=== PATIENT | male | born 1980 | race Caucasian/White ===

== ENCOUNTER 2024-08-02 00:03 | Inpatient (IN) | payer MEDICAID, SELFPAY ==
[2024-08-02] VITALS (16 sets, daily range): BP systolic 130–170; BP diastolic 106–125; PULSE 86–111; RESP 15–97; TEMP 36.6–37.1; O2SAT 93–99; BMI 33.9; BMI 34.0
--- NOTE | 2024-08-02 00:06 | EKG_ITS ---
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
--- NOTE | 2024-08-02 00:23 | XR_ITS ---
Examination: PA chest single view TECHNIQUE: Upright PA chest single view Exam date and time: August 02, 2024 0108 hours Comparison September 05, 2023 INDICATIONS: Chest pain shortness of breath today. FINDINGS: Mild to moderate CHF Mild to moderate enlargement cardiac contour. Prominent vascular congestion with perihilar edema Cardiac leads satisfactory position IMPRESSION: Mild to moderate CHF
--- NOTE | 2024-08-02 00:24 | PD.EDRME ---
Rapid Medical Screening Exam RME Arrival date/time: 08/02/24 00:03 44M with history of CHF presents to ED with SOB (worse when lying down) that started after patient took some ibuprofen for a toothache. Patient has been taking his meds. Chief Complaint: General Adult/Misc Complain Vital signs: Vital Signs Temperature 98.1 F 08/02/24 00:11 Pulse Rate 105 H 08/02/24 00:11 Respiratory Rate 18 08/02/24 00:11 Blood Pressure 144/106 H 08/02/24 00:11 Pulse Oximetry (%) 96 08/02/24 00:11 Oxygen Delivery Method Room Air 08/02/24 00:11
[2024-08-02 01:09] LABS: Collection Type, Urine Clean Catch
[2024-08-02 01:11] LABS: Basophils # (Auto) 0.1 Thou/mm3 (0.0-0.2); Basophils % (Auto) 1 % (0-2.5); Eosinophils # (Auto) 0.2 Thou/mm3 (0.0-0.5); Eosinophils % (Auto) 1 % (0-10); Hematocrit 42.4 % (41.0-53.0); Hemoglobin 14.6 g/dL (13.5-16.0); Immature Granulocytes % (Auto) 1 % (0-0); Immature Granulocytes Auto 0.06 Thou/mm3 (0.00-0.00); Lymphocytes # (Auto) 1.6 Thou/mm3 (1.0-4.8); Lymphocytes % (Auto) 13 % (10-50); Mean Corpuscular HGB Conc 34.4 g/dl (31.0-37.0); Mean Corpuscular Volume 84 fL (80-100); Monocytes # (Auto) 0.9 Thou/mm3 (0.0-0.8); Monocytes % (Auto) 8 % (0-12); Neutrophils % (Auto) 76 % (37-80); Nucleated Red Blood Cell % 0 /100 WBC (0); Platelet Count 213 Thou/mm3 (140-440); RDW Standard Deviation 40.8 fL (35.1-43.9); Red Blood Count 5.04 Miln/mm3 (4.50-5.90); White Blood Count 11.8 Thou/mm3 (3.8-10.6)
[2024-08-02 01:37] LABS: Bilirubin,Urine Negative (Negative); Blood,Urine Negative (Negative); Clarity,Urine Clear (Clear/Hazy); Color,Urine Yellow (Lt Yel-Yel); Glucose, Urine Negative (Negative); Hyaline Casts,Urine < 1 /hpf (0-1); Ketones,Urine Negative (Negative); Leukocyte Esterase,Urine Negative (Negative); Nitrite,Urine Negative (Negative); Protein,Urine 2+ (Neg - Trace); RBC,Urine 3 /hpf (0-3); Specific Gravity,Urine 1.034 (1.001-1.035); Squamous Epithelial Cell,Urine < 1 /hpf (0-5); WBC,Urine 2 /hpf (0-5)
[2024-08-02 01:47] LABS: Alanine Aminotransferase 26 U/L (10-49); Albumin/Globulin Ratio 1.6 (1.2-2.2); Alkaline Phosphatase 111 U/L (46-116); Anion Gap 9 (7-16); Aspartate Amino Transferase 24 U/L (0-34); B-Type Natriuretic Peptide 1117 pg/mL (0-100); BUN/Creatinine Ratio 13 Ratio (12-20); Bilirubin,Total 1.1 mg/dL (0.3-1.2); Blood Urea Nitrogen 19 mg/dL (9-23); Calcium 9.3 mg/dL (8.3-10.6); Calcium (Corrected) 9.3 mg/dL (8.5-10.1); Carbon Dioxide 26.3 mMol/L (20.0-31.0); Chloride 107 mMol/L (98-107); Creatinine (Component) 1.5 mg/dL (0.6-1.3); Estimated Creatinine Clearance 82.6 mL/min (>60); Globulin 2.5 gm/dL (2.3-3.5); Glucose 164 mg/dL (74-106); Magnesium 1.6 mg/dL (1.6-2.6); Osmolality,Calculated 289 (275-295); Potassium 3.8 mMol/L (3.4-5.1); Sodium 142 mMol/L (136-145); Total Protein 6.5 gm/dL (5.7-8.2); eGFR 59 See Note
[2024-08-02 01:50] LABS: Troponin I 0.126 ng/mL (0.0-0.045)
--- NOTE | 2024-08-02 02:50 | PC.NURSE ---
Initial contact with pt. Brought to RM #10 via w/c. Pt c/o SOB, stated that he took Ibuprofen, and thinks that it caused and interaction with his usual meds, and caused him to have resp distress.
--- NOTE | 2024-08-02 03:54 | PC.NURSE ---
Dr. Barlow in room seeing pt.
--- NOTE | 2024-08-02 04:00 | EDNOTE_ITS ---
ED General RME/HPI General Chief complaint: General Adult/Misc Complain Stated complaint: GENERAL WEAKNESS AND SOB PT HAS CHF Arrival date/time: 08/02/24 00:03 RME / HPI RME / HPI narrative: 08/02/24 00:03 44M with history of CHF presents to ED with SOB (worse when lying down) that started after patient took some ibuprofen for a toothache. Patient has been taking his meds. -------- Dr. Barlow?s Main ED Evaluation: 44yo male with a history of CHF, HTN, methamphetamine abuse (last being 2 days ago) presents to the ED for a chief complaint of shortness of breath. Patient states he started taking ibuprofen for a toothache 3 days ago, reporting the next day, he started feeling short of breath. He reports an associated cough. He states he was feeling sluggish and unwell, so he came in for evaluation. He denies any chest pain, N/V or any other associated symptoms. No known allergies. Related Data Home Medications ?Medication ?Instructions ?Recorded ?Confirmed aspirin 81 mg tablet,delayed 81 mg PO QDAY 09/08/21 release carvedilol 12.5 mg tablet 1 tab PO BID 09/08/21 clopidogrel 75 mg tablet 1 tab PO QDAY 09/08/2109/19 furosemide 20 mg tablet 20 mg PO QDAY 09/08/2109/19 losartan 100 mg tablet 1 tab PO QDAY 09/08/2109/19 spironolactone 25 mg tablet 1 tab PO QDAY 09/08/21 atorvastatin 80 mg tablet 1 tab PO HS 09/19/21 2 Allergies Allergy/AdvReac Type Severity Reaction Status Date / Time No Known Allergies Allergy Verified 05/18/22 11:36 Review of Systems Review of Systems Systems Reviewed: All systems reviewed, normal except as documented Past Medical History Past Medical History NEUROLOGIC: Negative Neurological Disorders, Cerebrovascular Accident, Transient Ischemic Attacks (TIA), Dementia, Alzheimer's Disease, Parkinson's Disease, Brain Tumor, Meningitis, Seizures, Epilepsy, Multiple Sclerosis, Cerebral Palsy, Amyotrophic Lateral Sclerosis (ALS/Antonietta Gehrig's), Guillain-[place] Syndrome, Spina Bifida, Paralysis, Peripheral Neuropathy, Blanc's Palsy, Subdural Hematoma, Migraine, Head Trauma, Spinal Cord Injury or Traumatic Brain Injury CARDIAC: Positive Cardiac Disorders, Congestive Heart Failure, Edema and Hypertension; Negative Myocardial Infarction, Cardiac Arrhythmia, Atrial Fibrillation, Angina, Heart Murmur, Coronary Artery Disease, Atherosclerotic Heart Disease, Peripheral Vascular Disease, Hypercholesterolemia, Aneurysm, Congenital Heart Disease, Valvular Heart Disease, Rheumatic Fever, Cardiomyopathy, Pericarditis, Cellulitis, Deep Vein Thrombosis, Hypotension or Varicose Veins RESPIRATORY: Positive Chronic Obstructive Pulmonary Disease (COPD) and Pneumonia; Negative Bronchitis, Emphysema, Cystic Fibrosis, Pulmonary Embolism or Pulmonary Edema GASTROINTESTINAL: Positive Obesity; Negative Gastrointestinal Disorders, Hepatitis, Cirrhosis, Pancreatitis, Celiac Disease, Gall Bladder Disease, Gastrointestinal Bleed, Esophageal Varices, Stewart's Esophagus, Colitis, Ulcerative Colitis, Diverticulitis, Diverticulosis, Ulcer, Colorectal Cancer, Irritable Bowel, Crohn's Disease, Obstructive Bowel, Hiatal Hernia, Hemorrhoids or Gastroesophageal Reflux Disease GENITOURINARY: Positive Genitourinary Disorders and Kidney Stones; Negative Renal Disease, Polycystic Kidney Disease, Neurogenic Bladder, Prostate Cancer or Benign Prostatic Hyperplasia REPRODUCTIVE: Negative Breast Cancer, Genital Herpes, Gonorrhea, Syphilis or Testicular Cancer MUSCULOSKELETAL: Positive Musculoskeletal Disorders; Negative Muscular Dystrophy, Myasthenia Gravis, Marfan's Syndrome, Bone Cancer, Arthritis, Rheumatoid Arthritis, Osteoporosis, Degenerative Disk Disease, Gout, Scoliosis, Carpal Tunnel Syndrome, Fibromyalgia, Fractures, Degenerative Joint Disease, Osteomyelitis or Poliovirus ENT: Negative Cataracts, Glaucoma, Blind, Retinal Detachment, Macular Degeneration, Ear Infection, Deafness, Head Trauma or Eye Prosthesis ENDOCRINE: Negative Endocrine Disorders, Diabetes Mellitus Type 1, Diabetes Mellitus Type 2, Hypoglycemia, Hyperthyroidism, Hypothyroidism, Parathyroid Disease, Pituitary Disease, Systemic Lupus Erythematosus, Syndrome of Inappropriate Antidiuretic Hormone (SIADH) or Graves' Disease HEMATOLOGIC: Negative Blood Disorders, Anemia, Leukemia, Hemophilia, Thalassemia, Sickle Cell Disease or Clotting Problems PSYCHO/SOCIAL: Negative Psychiatric Problems, Schizophrenia, Recreational Drug Use, Bipolar Disorder, Depression, Anxiety, Behavior Problems, Self-Mutilation, Attention Deficit Disorder, Attention Deficit Hyperactivity Disorder, Depression, Post Traumatic Stress Disorder or Eating Disorder OTHER HISTORY: Positive Hospitalization; Negative Autoimmune Disease, Down Syndrome, Autism, Developmental Delay, Falls, Blood Transfusions, Blood Transfusion Reaction, Anesthesia Reactions, Organ Transplant, Chemotherapy, Radiation Therapy, Hyperbaric Therapy, MRSA, VRSA, Vancomycin-Resistant Enterococci, Human Immunodeficiency Virus (HIV), Chicken Pox, Measles, Mumps, Rubella (Uz[place] Measles), Pertussis, Clostridium Difficile, Cancer, Breast Cancer, Colorectal Cancer, Lung Cancer, Prostate Cancer or Testicular Cancer Family History FAMILY HISTORY: Positive Family Cardiac Disorders; Negative Family Psychiatric Problems, Family Respiratory Disorders, Family Gastrointestinal Problems, Family Cancer, Family Surgery or Family Anesthesia Reaction Surgical History SURGICAL: Negative Cardiac Surgery, Open Heart Surgery, Coronary Artery Bypass Graft, Valve Replacement, Vascular Surgery, Coronary Stent, Cardiac Catheterization, Pacemaker, Angiogram, Auto Implanted Cardiovert Defib, Carotid Endarterectomy, Endocrine Surgery, Thyroidectomy, Ear Surgery, Tympanostomy Tube, Eye Surgery, Nose Surgery, Oral Surgery, Tonsillectomy, Adenoidectomy, Cochlear Implant, Corneal Transplant, Throat Surgery, Abdominal Surgery, Tracheostomy, Gastric Bypass Surgery, Gastrostomy, Bowel Surgery, Nephrectomy, Transurethral Resection, Joint Replacement, Amputation, Open Reduction Internal Fixation, Arthroscopy, Neurologic Surgery, Brain Shunt, Vasectomy or Organ Transplant Social History SMOKING STATUS: Never smoker SECOND HAND EXPOSURE: No SUBSTANCE USE: methamphetamine ED Exam Narrative Physical exam: GENERAL APPEARANCE: alert and oriented x 4, well-developed, well-nourished, in [id number] respiratory distress VITALS: All vitals were reviewed and the pulse ox is 95% on room air, which is normal according to my interpretation. HEENT: Normocephalic, atraumatic; pupils equal, round, reactive to light; EOMI; mucous membranes pink, moist; oropharynx clear NECK: Supple LUNGS: no wheezes, diffuse rales and rhonchi HEART: Regular rate, regular rhythm; normal S1, S2; no murmurs ABDOMEN: non distended; normal BS; soft, no tenderness, no guarding, no rebound; no masses, no organomegaly, no hernia BACK: no CVA tenderness EXTREMITIES: atraumatic; minimal pedal edema bilaterally NEUROLOGIC: awake; alert and oriented x4; cranial nerves II-XII grossly intact; no focal sensory or motor deficits PSYCHIATRIC: appropriate mood and affect SKIN: warm, dry, normal color; no rashes Course Course Course Narrative: CXR is ordered for determining the etiology of shortness of breath. 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 Care 08/02/24 03:33 Active Continuous Pulse Oximetry ONCE Care 08/02/24 03:33 Active EKG (ED ONLY) *Do not use* NOW Care 08/02/24 00:06 Completed Insert IV STAT Care 08/02/24 03:33 Active Notify provider NEEDED Care 08/02/24 04:50 Active Obtain weight daily Care 08/02/24 04:51 Active Strict Intake and Output Routine Care 08/02/24 04:50 Ordered Consult to Cardiology Routine Cons 08/02/24 04:55 Ordered Referral Respiratory Therapy Stat Cons 08/02/24 04:09 Active Diet Cardiac Diet 08/02/24 Breakfast Active CA echo doppler complete Stat Exams 08/02/24 04:50 Ordered EKG (ED Only) Stat Exams 08/02/24 00:06 Draft XR chest 1V portable Stat Exams 08/02/24 00:23 Taken B-Type Natriuretic Peptide Stat Lab 08/02/24 00:56 Completed CBC AM DRAW Lab 08/02/24 05:00 Ordered CBC AM DRAW Lab 08/03/24 05:00 Ordered CBC AM DRAW Lab 08/04/24 05:00 Ordered CBC Stat Lab 08/02/24 00:56 Completed Comprehensive Metabolic Panel AM DRAW Lab 08/02/24 05:00 Ordered Comprehensive Metabolic Panel AM DRAW Lab 08/03/24 05:00 Ordered Comprehensive Metabolic Panel AM DRAW Lab 08/04/24 05:00 Ordered Comprehensive Metabolic Panel Stat Lab 08/02/24 00:56 Completed Drug Screen,Urine Stat Lab 08/02/24 01:00 Completed Lipid Panel AM DRAW Lab 08/02/24 05:00 Ordered Magnesium AM DRAW Lab 08/02/24 05:00 Ordered Magnesium AM DRAW Lab 08/03/24 05:00 Ordered Magnesium AM DRAW Lab 08/04/24 05:00 Ordered Magnesium Stat Lab 08/02/24 00:56 Completed Phosphorous AM DRAW Lab 08/03/24 05:00 Ordered Phosphorous AM DRAW Lab 08/04/24 05:00 Ordered Phosphorous AM DRAW Lab 08/05/24 05:00 Ordered Thyroid Stimulating Hormone AM DRAW Lab 08/02/24 05:00 Ordered Troponin I Q4H Lab 08/02/24 08:00 Ordered Troponin I Q4H Lab 08/02/24 12:00 Ordered Troponin I Q4H Lab 08/02/24 16:00 Ordered Troponin I Q4H Lab 08/02/24 20:00 Ordered Troponin I Stat Lab 08/02/24 00:56 Completed Troponin I Stat Lab 08/02/24 03:49 Received Urinalysis Stat Lab 08/02/24 01:00 Completed Acetaminophen Tab [Tylenol Tab] Med 08/02/24 04:50 Ordered 650 mg PO Q6H PRN Acetaminophen Tab [Tylenol Tab] Med 08/02/24 04:50 Ordered 650 mg PO Q6H PRN Albuterol/Ipratr Rt Jacqueline [Duoneb Rt Jacqueline] Med 08/02/24 05:00 Ordered 3 ml INH Q6H Aspirin Med 08/02/24 04:08 Discontinued 325 mg PO X1 ONE Furosemide Inj [Lasix Inj] Med 08/02/24 04:02 Discontinued 80 mg IVP X1 ONE Heparin Inj Med 08/02/24 06:00 Ordered 5,000 unit SC Q8HR hydrALAZINE INJ [Apresoline Inj] Med 08/02/24 04:02 Discontinued 10 mg IV X1 ONE oxyCODONE/APAP 5/325 [Percocet 5/325] Med 08/02/24 04:20 Discontinued 1 tab PO X1 ONE Code Status Routine Oth 08/02/24 04:50 Ordered BiPAP / CPAP NOW RT 08/02/24 04:35 Active Oxygen Delivery NOW RT 08/02/24 03:33 Active Vital Signs Vital signs: Vital Signs Temperature 98.1 F 08/02/24 00:11 Pulse Rate 105 H 08/02/24 00:11 Respiratory Rate 18 08/02/24 00:11 Blood Pressure 144/106 H 08/02/24 00:11 Pulse Oximetry (%) 96 08/02/24 00:11 Oxygen Delivery Method Room Air 08/02/24 00:11 [facility] Patient data External records reviewed:: [facility] previous records (Per chart review, patient was seen here on 09/05/23 for CHF.) Clinical information provided by:: patient Social determinants that could affect healthcare access:: substance use Patient has the following chronic illnesses:: CHF, HTN How is presenting disease/condition affected by chronic disease/condition?: e xacerbated by Evaluation data The following diagnostics were reviewed and interpreted by me:: lab results, radiology exam(s) and EKG tracing(s) Lab and/or radiology exams considered but not ordered:: none Interpretation Summary: WBC count is 11.8, Glucose is 164, BNP is elevated at 1117, Initial troponin is elevated at 0.126, UA is unremarkable, according to my interpretation. CXR shows a dual chamber pacemaker and AICD, cardiomegaly, cephalization, blurring of the left heart border, mild pulmonary edema, according to my interpretation. EKG done at 0016, NSR, rate of 99, normal axis, no ectopy, QTc: 384, QRS: 103, no acute ischemia, according to my interpretation. Medications Medications considered but not ordered:: none Medication administrations:: Medication Administration History Acetaminophen (Acetaminophen 325 Mg Tablet) 650 mg PO Q6H PRN PRN Reason: Fever >101.5 Stop: 09/01/24 04:49 Acetaminophen (Acetaminophen 325 Mg Tablet) 650 mg PO Q6H PRN PRN Reason: PAIN SCALE 1-3 (mild Stop: 09/01/24 04:49 Albuterol/Ipratropium (Albuterol/Ipratropium (Duoneb) Rt Jacqueline 3 Ml Nebu) 3 ml INH Q6H GAEL Stop: 09/01/24 04:59 Heparin Sodium (Porcine) (Heparin Sod Inj 5000 Unit/Ml Vial) 5,000 unit SC Q8HR GAEL Stop: 08/16/24 05:59 Discontinued Medications Aspirin (Aspirin 325 Mg Tablet) 325 mg PO X1 ONE Stop: 08/02/24 04:09 Last Admin: 08/02/24 04:44 Dose: 325 mg Documented By: LB Furosemide (Furosemide Inj 10 Mg/Ml 4ml Vial) 80 mg IVP X1 ONE Stop: 08/02/24 04:03 Hydralazine HCl (Hydralazine Inj 20 Mg/Ml Vial) 10 mg IV X1 ONE Stop: 08/02/24 04:03 Oxycodone/Acetaminophen (Oxycodone/Apap 5/325 Tablet) 1 tab PO X1 ONE Stop: 08/02/24 04:21 see above Consultations Consultation(s) initiated? (list below): Yes Consultation #1 (Physician, Specialty, Details): Discussed case with [Dr. Gomez, attending Dr. Latif] from Hospitalist service regarding admission. Discussed patients ED course, exam findings, labs, and radiology results. The Hospitalist [agrees] to accept the patient for admission. Time: 04:14 Diagnosis Differential Diagnosis ED Complaint MDM: CHF exacerbation, hypertensive crisis, pulmonary edema, STEMI, NSTEMI Most likely diagnosis given after review of the tests above:: see clinical impression below Admission Indicated Admission indicated?: indicated Explain why admission is indicated or not indicated:: Admission criteria met. Admission Request Was there a request for admission?: Yes Admission Attestation Admission request attestation: Discussed case with [] from Hospitalist service regarding admission. Discussed patients ED course, exam findings, labs, and radiology results. The Hospitalist [agrees,declines] to accept the patient for admission. Disposition Plan Disposition Plan: Admit Medical Decision Making MDM Narrative MDM Narrative: Scribe Attestation: 08/02/24 - Tri Mason am scribing for and in the presence of Dr. Barlow. 0409: Patient's blood pressure is 150/114. Hydralazine 10mg and Lasix 80mg ordered. I had RT called to place the patient on BiPaP. Differential Diagnosis Differential Diagnosis: CHF exacerbation, hypertensive crisis, pulmonary edema, STEMI, NSTEMI Lab Data 08/02/24 00:56 08/02/24 00:56 Labs: Lab Results 08/02/24 08/02/24 Range/Units 00:56 01:00 WBC 11.8 H (3.8-10.6) Thou/mm3 RBC 5.04 (4.50-5.90) Miln/mm3 Hgb 14.6 (13.5-16.0) g/dL Hct 42.4 (41.0-53.0) % MCV 84 (80-100) fL MCH 29.0 (25.0-35.0) pg MCHC 34.4 (31.0-37.0) g/dl RDW Std Deviation 40.8 (35.1-43.9) fL Plt Count 213 (140-440) Thou/mm3 Neut % (Auto) 76 (37-80) % Lymph % (Auto) 13 (10-50) % [place] % (Auto) 8 (0-12) % Eos % (Auto) 1 (0-10) % Baso % (Auto) 1 (0-2.5) % Neut # (Auto) 9.0 H (1.8-7.7) Thou/mm3 Lymph # (Auto) 1.6 (1.0-4.8) Thou/mm3 [place] # (Auto) 0.9 H (0.0-0.8) Thou/mm3 Eos # (Auto) 0.2 (0.0-0.5) Thou/mm3 Baso # (Auto) 0.1 (0.0-0.2) Thou/mm3 Immature Gran # (Auto) 0.06 H (0.00-0.00) Thou/mm3 Absolute Nucleated RBC 0.00 (0.00-0.00) Thou/mm3 Immature Gran % 1 H (0-0) % Nucleated RBC % 0 (0) /100 WBC Sodium 142 (136-145) mMol/L Potassium 3.8 (3.4-5.1) mMol/L Chloride 107 (98-107) mMol/L Carbon Dioxide 26.3 (20.0-31.0) mMol/L Anion Gap 9 (7-16) BUN 19 (9-23) mg/dL Creatinine 1.5 H (0.6-1.3) mg/dL Estim Creat Clear Calc 82.6 (>60) mL/min eGFR 59 L (60 - ) See Note BUN/Creatinine Ratio 13 (12-20) Ratio Glucose 164 H (74-106) mg/dL Calculated Osmolality 289 (275-295) Calcium 9.3 (8.3-10.6) mg/dL Corrected Calcium 9.3 (8.5-10.1) mg/dL Magnesium 1.6 (1.6-2.6) mg/dL Total Bilirubin 1.1 (0.3-1.2) mg/dL AST 24 (0-34) U/L ALT 26 (10-49) U/L Alkaline Phosphatase 111 (46-116) U/L Troponin I 0.126 H* (0.0-0.045) ng/mL B-Natriuretic Peptide 1117 H* (0-100) pg/mL Total Protein 6.5 (5.7-8.2) gm/dL Albumin 4.0 (3.5-5.0) gm/dL Globulin 2.5 (2.3-3.5) gm/dL Albumin/Globulin Ratio 1.6 (1.2-2.2) Ur Collection Type Clean Catch Urine Color Yellow (Lt Yel-Yel) Urine Clarity Clear (Clear/Hazy) Urine pH 6.0 (5.0-7.0) Ur Specific [place] 1.034 (1.001-1.035) Urine Protein 2+ A (Neg - Trace) Urine Glucose (UA) Negative (Negative) Urine Ketones Negative (Negative) Urine Blood Negative (Negative) Urine Nitrite Negative (Negative) Urine Bilirubin Negative (Negative) Urine Urobilinogen (Auto) 2.0 (0.0-1.0) mg/dL Ur Leukocyte Esterase Negative (Negative) Urine RBC 3 (0-3) /hpf Urine WBC 2 (0-5) /hpf Ur Squamous Epith Cells < 1 (0-5) /hpf Urine Bacteria None (None) Hyaline Casts < 1 (0-1) /hpf Urine Opiates Screen Negative (Negative) Urine Fentanyl Screen Negative (Negative) Ur Barbiturates Screen Negative (Negative) U Amphetamin/Meth Scrn Positive A (Negative) U Benzodiazepines Scrn Negative (Negative) U Cocaine Metab Screen Negative (Negative) U Marijuana (THC) Screen Positive A (Negative) Critical Care Time Critical Care Time Critical Care Time: Yes Total Critical Care Time (min.): 60 Attestation: The high probability of sudden, clinically significant deterioration in the patient?s condition required the highest level of my preparedness to intervene urgently. The services I provided to this patient were to treat and/or prevent clinically significant deterioration. Services included the following: chart data review, reviewing nursing notes and/or old charts, documentation time, organizational effectiveness consultant collaboration regarding findings and treatment options, medication orders and management, direct patient care, vital sign assessments and ordering, interpreting and reviewing diagnostic studies and lab tests. Aggregate critical care time includes only time during which I was engaged in work directly related to the patient?s care, as described above, whether at bedside or elsewhere in the Emergency Department. It did not include time spent performing other reported procedures or the services of residents, students, nurses or physician assistants. Discharge Plan Plan Patient Disposition: Admit Acute Care w/in Hospital Disposition Comment: Admitted to Dr. Gomez, attending Dr. Latif Prescriptions/Referrals Prescriptions/Med Rec: No Action losartan 100 mg tablet 1 tab PO QDAY Patient Comments: TAKE 1 TABLET BY MOUTH ONCE DAILY FOR 30 DAYS carvedilol 12.5 mg tablet 1 tab PO BID Patient Comments: TAKE 1 TABLET BY MOUTH TWICE DAILY WITH FOOD clopidogrel 75 mg tablet 1 tab PO QDAY Patient Comments: TAKE 1 TABLET BY MOUTH ONCE DAILY aspirin 81 mg tablet,delayed release (DR/EC) 81 mg PO QDAY Patient Comments: TAKE 1 TABLET BY MOUTH ONCE DAILY spironolactone 25 mg tablet 1 tab PO QDAY Patient Comments: TAKE 1 TABLET BY MOUTH ONCE DAILY furosemide 20 mg tablet 20 mg PO QDAY Patient Comments: TAKE 1 TABLET BY MOUTH ONCE DAILY atorvastatin 80 mg tablet 1 tab PO HS Patient Comments: TAKE 1 TABLET BY MOUTH ONCE DAILY Referrals: Cale Garcia MD [Primary Care Provider] - In 1 week Problem List Clinical Impression: Pulmonary edema, CHF exacerbation, Hypertensive crisis, Non-ST elevation [place] (NSTEMI), Acute renal insufficiency, Gout flare Patient/Caregiver Discharge Instructions Print Language: Citizen Of [place] Stand Alone Forms: [employer] Award Info., Patient Portal Info Letter
[2024-08-02 04:23] LABS: Amphetamine/Methamp Scrn,U Positive (Negative); Barbiturate Screen,Urine Negative (Negative); Benzodiazepines Screen,Urine Negative (Negative); Benzoylecgonine Screen, Ur Negative (Negative); Fentanyl Screen,Urine Negative (Negative); Opiate Screen,Urine Negative (Negative); THC Screen,Urine Positive (Negative)
[2024-08-02] MEDS: Aspirin 325 MG TABLET PO (04:44)
--- NOTE | 2024-08-02 04:50 | ECHO_ITS ---
Transthoracic Echo Report Ht (in): 72 Wt (lb): 250 Exam Location: Portable Status: Emergency [place]yer: VIOLETA Spring^^^^ Indications: Procedure Performed: BP: 170 / 125 HR: 86 Technical Quality: Fair MEASUREMENTS (Male / Female) Normal Values 2D ECHO LV Diastolic Diameter PLAX 7.1 cm 4.2 - 5.9 / 3.9 - 5.3 cm LV Systolic Diameter PLAX 6.7 cm IVS Diastolic Thickness 0.7 cm 0.6 - 1.0 / 0.6 - 0.9 cm LVPW Diastolic Thickness 1.0 cm 0.6 - 1.0 / 0.6 - 0.9 cm LV Relative Wall Thickness 0.2 LVOT Diameter 1.9 cm Aortic Root Diameter 3.7 cm LA Systolic Diameter LX 5.4 cm 3.0 - 4.0 / 2.7 - 3.8 cm LV Ejection Fraction MOD BP 26.1 % >= 55 % LV Cardiac Index MOD BP 4166.0 cm?/min?m? LV Ejection Fraction MOD 4C 18.9 % LV Cardiac Index MOD 4C 3389.3 cm?/min?m? LV Ejection Fraction 4C AL 19.5 % LV Cardiac Index 4C AL 3597.8 cm?/min?m? LV Ejection Fraction MOD 2C 24.8 % LV Cardiac Index MOD 2C 3071.5 cm?/min?m? LV Ejection Fraction 2C AL 27.8 % LV Cardiac Index 2C AL 3427.0 cm?/min?m? LA Volume Index 56.7 cm?/m? 16 - 28 cm?/m? Ascending Aorta Diameter 3.1 cm DOPPLER AV Peak Velocity 110.9 cm/s AV Peak Gradient 4.9 mmHg AV Mean Gradient 3.0 mmHg AV Velocity Time Integral 19.4 cm AI Peak Velocity 193.0 cm/s AI Peak Gradient 14.9 mmHg AI Pressure Half Time 774.5 ms LVOT Peak Velocity 68.0 cm/s LVOT Peak Gradient 1.8 mmHg LVOT Velocity Time Integral 11.6 cm LVOT Cardiac Index 1161.2 cm?/min?m? AV Area Cont Eq vti 1.7 cm? AV Area Cont Eq pk 1.7 cm? MV Area PHT 3.3 cm? MR Peak Velocity 454.0 cm/s MR Peak Gradient 82.4 mmHg Mitral E Point Velocity 88.0 cm/s LV E' Lateral Velocity 7.7 cm/s Mitral E to LV E' Lateral Ratio 11.5 LV E' Septal Velocity 6.3 cm/s Mitral E to LV E' Septal Ratio 14.0 TR Peak Velocity 313.8 cm/s TR Peak Gradient 39.4 mmHg PV Peak Velocity 80.3 cm/s PV Peak Gradient 2.6 mmHg RVOT Peak Velocity 34.0 cm/s FINDINGS Left Ventricle There are findings consistent with dilated cardiomyopathy. The left ventricular cavity size is severely increased. There is grade III diastolic dysfunction of the left ventricle (restrictive filling pattern). The left ventricular ejection fraction is severely decreased, estimated at 15-20%. Right Ventricle The estimated right ventricular systolic pressure is elevated 53 mmHg. the right ventricular systolic function is moderately decreased. The right ventricular size is moderately increased. Left Atrium Moderately increased left atrial volume 56.7 mL/m?. Right Atrium The right atrial cavity size is mildly increased. Atrial Septum The interatrial septum appears normal with no evidence of a shunt. Aorta The aorta is normal by two-dimensional, color flow and Doppler interrogation. Mitral Valve Moderate mitral regurgitation. Mild mitral annular calcification. Aortic Valve Mild aortic valve regurgitation. Tricuspid Valve There is moderate to severe tricuspid valve regurgitation. Pulmonic Valve Trivial pulmonic valve regurgitation. Vessels The pulmonary artery appears normal. The inferior vena cava pulmonary and hepatic veins appear normal. Pericardium The pericardium is normal by two-dimensional imaging. There is no significant pericardial effusion. CONCLUSIONS indication: HFrEF Dilated cardiomyopathy with severe global hypokinesis left ventricle ejection fraction 1015 to 20%. Dystolic Dysfunction III. RV is mildly dilated with reduced systolic function & elevated RVSP 53 mmHg. LA is moderately dilated. RA is mildly dilated. Dilated mitral annulus with mild to moderate 2+ mitral regurgitation secondary to annulus dilation Moderate to severe tricuspid regurgitation with group 2 pulmonary hypertension PA pressure 53 mmHg. Roseline Kang (Electronically Signed) Final Date: 03 August 2024 16:44
[2024-08-02] MEDS: FUROSEMIDE INJ 10 MG/ML 4ML VIAL 80 MG IVP (04:57)
--- NOTE | 2024-08-02 05:03 | PD.RESHP ---
Documentation for date of: 08/02/24 HPI History of Present Illness History of present illness: The patient is a 44-year-old male with significant past medical history of hypertension, diabetes mellitus type 2, currently controlled with diet, HFrEF LVEF 20% on 2020 2/2 dilated cardiomyopathy s/p pacemaker placement in 2022, methamphetamine and marijuana abuse presented to ED on 08/02/2024 with chief complaint of shortness of breath that has been worsening for past 2 days. He reported that he had to take 3 days back, when he took ibuprofen, and methamphetamine and next day he started developing SOB. Initially he thought that his daily dose of Lasix 80 Mg p.o. would help him, but his SOB or send and he decided to come to the ED. He denied any headache, chest pain, abdominal pain, any changes in bowel or bladder habit, leg swelling or fever or chills. He also denied any nausea or vomiting. In the ED, his vitals were significant for blood pressure 144/106, pulse 105, saturating 96% on room air. Labs revealed WBC 11.8, creatinine 1.5, GFR 59, blood sugar 164, BNP 1117, UA revealed 2+ protein, U tox was positive for methamphetamine and marijuana. EKG revealed sinus rhythm, no ST or T wave abnormalities, chest x-ray was significant for marked vascular congestion revealing pulmonary edema, as interpreted by me. PMH: As mentioned above PSHx: Unremarkable Social history: Past smoker, smoked 10 pack year, denies alcohol abuse, admitted marijuana and methamphetamine use Allergies: No known allergies Medications: To be reconciled Review of Systems Review of Systems Systems Reviewed: All systems reviewed, normal except as documented Exam Vital Signs Temp Pulse Resp BP Pulse Ox O2 Del Method FiO2 98.3 F 101 H 22 H 154/116 H 98 Room Air 30 08/02/24 02:52 08/02/24 04:57 08/02/24 04:38 08/02/24 04:57 08/02/24 04:38 08/02/24 02:52 08/02/24 04:38 Narrative Exam General: Mildly obese, cooperative gentleman, no acute distress, Alert and Oriented x 3 HEENT: Moist mucous membranes, oropharynx clear Neck: Supple, No masses, No JVD CVS: S1S2 Regular rate and rhythm, No murmurs, rubs or gallops Lungs: Mild bibasilar crackles, decreased breath sounds throughout the lung field with mild wheeze over right middle lobe, no rhonchi Abd: Soft, NT/ND, +BS, no organomegaly Ext: No edema, warm and well perfused Skin: No rash Psych: Appropriate mood and affect Results: Labs 08/02/24 03:49 08/02/24 03:49 Labs: Short CBC 08/02/24 Range/Units 00:56 WBC 11.8 H (3.8-10.6) Thou/mm3 Hgb 14.6 (13.5-16.0) g/dL Hct 42.4 (41.0-53.0) % Plt Count 213 (140-440) Thou/mm3 BMP 08/02/24 00:56 Sodium 142 Potassium 3.8 Chloride 107 Carbon Dioxide 26.3 BUN 19 Creatinine 1.5 H Glucose 164 H Calcium 9.3 Cardiac Enzymes 08/02/24 Range/Units 00:56 Troponin I 0.126 H* (0.0-0.045) ng/mL Liver Function 08/02/24 Range/Units 00:56 Total Bilirubin 1.1 (0.3-1.2) mg/dL AST 24 (0-34) U/L ALT 26 (10-49) U/L Alkaline Phosphatase 111 (46-116) U/L Albumin 4.0 (3.5-5.0) gm/dL Urine 08/02/24 Range/Units 01:00 Urine Color Yellow (Lt Yel-Yel) Urine Clarity Clear (Clear/Hazy) Urine pH 6.0 (5.0-7.0) Ur Specific [place] 1.034 (1.001-1.035) Urine Protein 2+ A (Neg - Trace) Urine Glucose (UA) Negative (Negative) Quality Measures Quality Measures none Medications Home Medications and Allergies Home Medications ?Medication ?Instructions ?Recorded ?Confirmed ?Type aspirin 81 mg tablet,delayed 81 mg PO QDAY 09/08/21 08/02/24 History release carvedilol 12.5 mg tablet 1 tab PO BID 09/08/21 08/02/24 History clopidogrel 75 mg tablet 1 tab PO QDAY 09/08/21 08/02/24 History furosemide 20 mg tablet 20 mg PO QDAY 09/08/21 08/02/24 History losartan 100 mg tablet 1 tab PO QDAY 09/08/21 08/02/24 History spironolactone 25 mg tablet 1 tab PO QDAY 09/08/21 08/02/24 History atorvastatin 80 mg tablet 1 tab PO HS 09/19/21 08/02/24 History furosemide 40 mg tablet 40 mg PO BID 08/02/24 08/02/24 History ibuprofen 200 mg capsule 400 mg PO DAILY PRN For tooth pain 08/02/24 08/02/24 History Allergies Allergy/AdvReac Type Severity Reaction Status Date / Time No Known Allergies Allergy Verified 05/18/22 11:36 Visit Medications Acetaminophen (Acetaminophen 325 Mg Tablet) 650 mg PO Q6H PRN PRN Reason: Fever >101.5 Stop: 09/01/24 04:49 Acetaminophen (Acetaminophen 325 Mg Tablet) 650 mg PO Q6H PRN PRN Reason: PAIN SCALE 1-3 (mild Stop: 09/01/24 04:49 Albuterol/Ipratropium (Albuterol/Ipratropium (Duoneb) Rt Jacqueline 3 Ml Nebu) 3 ml INH Q6HRRT [facility] Stop: 09/01/24 04:59 Azithromycin (Azithromycin 250 Mg Tablet) 500 mg PO QDAY@0600 [facility] Stop: 08/05/24 05:59 Bumetanide (Bumetanide Inj 0.25 Mg/Ml Vial 4 Ml) 2 mg IVP BID GA[facility] Stop: 09/01/24 08:59 Heparin Sodium (Porcine) (Heparin Sod Inj 5000 Unit/Ml Vial) 5,000 unit SC Q8HR [facility] Stop: 08/16/24 05:59 Ceftriaxone Sodium/Dextrose (Rocephin/D5w 1gm Iv Premix) 50 mls @ 100 mls/hr IV QDAY@0500 [facility] Stop: 08/09/24 04:59 Discontinued Medications Aspirin (Aspirin 325 Mg Tablet) 325 mg PO X1 ONE Stop: 08/02/24 04:09 Last Admin: 08/02/24 04:44 Dose: 325 mg Furosemide (Furosemide Inj 10 Mg/Ml 4ml Vial) 80 mg IVP X1 ONE Stop: 08/02/24 04:03 Last Admin: 08/02/24 04:57 Dose: 80 mg Hydralazine HCl (Hydralazine Inj 20 Mg/Ml Vial) 10 mg IV X1 ONE Stop: 08/02/24 04:03 Oxycodone/Acetaminophen (Oxycodone/Apap 5/325 Tablet) 1 tab PO X1 ONE Stop: 08/02/24 04:21 Assessment & Plan Plan The patient is a 44-year-old male with significant past medical history of hypertension, diabetes mellitus type 2, currently controlled with diet, HFrEF LVEF 20% on 2020 2/2 dilated cardiomyopathy s/p pacemaker placement in 2022, methamphetamine and marijuana abuse presented to ED on 08/02/2024 with chief complaint of shortness of breath that has been worsening for past 2 days is currently being managed for acute hypoxic respiratory failure secondary to pulmonary edema secondary to HFrEF exacerbation in the setting of methamphetamine abuse. #Acute hypoxic respiratory failure 06/03 #Pulmonary edema #HFrEF exacerbation 06/03 #Methamphetamine abuse The patient presented with SOB, after taking methamphetamine and ibuprofen for toothache 3 days back, SOB continued worsening and chest x-ray was significant for severe vascular congestion significant for bilateral pulmonary edema in the setting of known HFrEF with LVEF 20% on 2020. Received IV Lasix 80 Mg x 1 in the ED, and hydralazine 10 Mg IV x 1 -Started on BiPAP -Started on Bumex 2 mg IV twice daily -Strict ins and outs with fluid restriction to 1200 cc/day -On cardiac diet -TTE ordered -[place] Sprayer Dr. Barnhart consulted, appreciate recommendations -Counseling done regarding methamphetamine and marijuana abuse -Maintain potassium greater than 4 and magnesium greater than 2 -Consider GDMT when stable -Daily a.m. labs for CMP and electrolytes #Possible community-acquired pneumonia Chest x-ray suspicious for right middle lobe pneumonia -Started on DuoNeb every 6 hourly -Started on ceftriaxone and azithromycin daily at 5 AM and 6 AM respectively #NSTEMI, likely type II Likely secondary to methamphetamine abuse Presented with troponin level 0.106 and trended up to 0.126 No significant EKG changes, EKG revealed sinus rhythm and no ST or T wave changes -Trend troponin every 4 hourly until delta is achieved #CKD stage IIIa #Proteinuria 2/2 #Diabetes mellitus type 2 Patient's creatinine was 1.4 9 months back, with EGFR of 59 and presented with creatinine of 1.5 and GFR 59. UA revealed 2+ proteinuria Patient reported that his diabetes is well-controlled by proper diet -A1c ordered -Avoid nephrotoxic drugs -Consider YUMI inhibitor or ARB -Daily a.m. labs for renal panel #Marijuana abuse disorder -Social service referral done #Hypertension #Dilated cardiomyopathy 2/2 methamphetamine abuse Currently blood pressure borderline high -Continue to monitor -Expected to improve with Bumex use Health maintenance: Dispo: Patient admitted to telemetry unit for further management of acute hypoxic respiratory failure secondary to pulmonary edema secondary to HFrEF exacerbation in the setting of methamphetamine abuse Diet: Cardiac diet, fluid restriction 1200 cc/day DVT prophylaxis: Subcu heparin every 8 hour CODE STATUS: Full code The patient's management plan was discussed with my attending physician MD Reggie Yoon MD, PGY2 Attending Provider Attestation/Addendum I attest that I was physically present for the evaluation, physical examination, lab and imaging review of the patient with the residents. I discussed the case with the residents and agree with the findings and plans of care as documented above. Patient is a 44 years old male with past medical history of hypertension, diabetes mellitus, HFrEF, dilated cardiomyopathy status post pacemaker placement, methamphetamine and marijuana abuse who presented to the ED with complaint of shortness of breath for 2 days. Patient took his Lasix but did not get enough relief and decided to visit the ED. In the ED, he had a blood pressure of 145/106, pulse 105. WBC count was 11.8, creatinine 1.5, glucose 164, BNP 1117. Urine toxicology was positive for methamphetamine and marijuana. Chest xray shows vascular congestion. Patient was placed on BiPAP at the time of exam. We will admit the patient for management of acute hypoxic respiratory failure secondary to chf exacerbation. We will start him on Bumex IV, fluid restriction, suplemental oxygen. We will obtain cardiology consult, echocardiography. Patient also has elevated WBC count, concerning for superimposed bacterial pneumonia, we will start IV antibiotics. Patient has mild elevation in troponin, likely type II, we will trend and monitor closely. Danny Latif MD
[2024-08-02] MEDS: oxyCODONE/APAP 5/325 TABLET 1 TAB PO (05:08)
[2024-08-02 05:27] LABS: Troponin I 0.158 ng/mL (0.0-0.045)
[2024-08-02 05:49] LABS: Basophils # (Auto) 0.1 Thou/mm3 (0.0-0.2); Basophils % (Auto) 1 % (0-2.5); Eosinophils # (Auto) 0.1 Thou/mm3 (0.0-0.5); Eosinophils % (Auto) 1 % (0-10); Hematocrit 41.8 % (41.0-53.0); Hemoglobin 14.2 g/dL (13.5-16.0); Immature Granulocytes % (Auto) 0 % (0-0); Immature Granulocytes Auto 0.04 Thou/mm3 (0.00-0.00); Lymphocytes # (Auto) 1.6 Thou/mm3 (1.0-4.8); Lymphocytes % (Auto) 15 % (10-50); Mean Corpuscular Hemoglobin 29.3 pg (25.0-35.0); Mean Corpuscular Volume 86 fL (80-100); Monocytes # (Auto) 0.7 Thou/mm3 (0.0-0.8); Monocytes % (Auto) 7 % (0-12); Neutrophils # (Auto) 8.1 Thou/mm3 (1.8-7.7); Neutrophils % (Auto) 76 % (37-80); Nucleated Red Blood Cell % 0 /100 WBC (0); Platelet Count 196 Thou/mm3 (140-440); RDW Standard Deviation 41.2 fL (35.1-43.9); Red Blood Count 4.84 Miln/mm3 (4.50-5.90); White Blood Count 10.6 Thou/mm3 (3.8-10.6)
[2024-08-02 05:51] LABS: Alanine Aminotransferase 27 U/L (10-49); Albumin, Serum 3.8 gm/dL (3.5-5.0); Albumin/Globulin Ratio 1.7 (1.2-2.2); Alkaline Phosphatase 104 U/L (46-116); Anion Gap 11 (7-16); Aspartate Amino Transferase 26 U/L (0-34); BUN/Creatinine Ratio 15 Ratio (12-20); Blood Urea Nitrogen 21 mg/dL (9-23); Calcium 9.2 mg/dL (8.3-10.6); Calcium (Corrected) 9.4 mg/dL (8.5-10.1); Carbon Dioxide 26.1 mMol/L (20.0-31.0); Cardiac Risk Estimate 3.7 RATIO (4.0-6.7); Chloride 104 mMol/L (98-107); Cholesterol 82 mg/dL (132-200); Creatinine (Component) 1.4 mg/dL (0.6-1.3); Estimated Creatinine Clearance 88.5 mL/min (>60); Globulin 2.2 gm/dL (2.3-3.5); Glucose 137 mg/dL (74-106); HDL Cholesterol 22 mg/dL (40-60); LDL Cholesterol,Calculated 42 mg/dL (0-130); Magnesium 1.6 mg/dL (1.6-2.6); Osmolality,Calculated 286 (275-295); Potassium 3.9 mMol/L (3.4-5.1); Sodium 141 mMol/L (136-145); Thyroid Stimulating Hormone 3.89 uIU/mL (0.55-4.78); Triglycerides 91 mg/dL (30-150); eGFR > 60 See Note
[2024-08-02] MEDS: HEPARIN SOD INJ 5000 UNIT/ML VIAL SC ×2 (06:09→08:58)
[2024-08-02] MEDS: AZITHROMYCIN 250 MG TABLET 500 MG PO (06:10)
[2024-08-02] MEDS: cefTRIAXone/D5w 1gm IV premix 1 GM/50 ML BAG IV (06:10)
--- NOTE | 2024-08-02 06:14 | PC.NURSE ---
RESIDENT DR CARDOZA CALLED, PT HAD A 10 BEAT RUN OF VTACH, PT ASTYMPTOMATIC
[2024-08-02] MEDS: POTASSIUM CHLORIDE 20 mEq TABCR 40 MEQ PO (06:33)
[2024-08-02] MEDS: MAGNESIUM OXIDE 400 MG TABLET PO (06:33)
[2024-08-02 06:35] LABS: Glucose Estimated Average 154 mg/dL (80-131)
[2024-08-02] MEDS: Magnesium Sulfate 4 GM Ivpb 4 GM/50 ML BAG IV (06:46)
[2024-08-02] MEDS: ALBUTEROL/IPRATROPIUM (Duoneb) RT SOL 3 ML NEBU INH ×2 (07:02→12:06)
--- NOTE | 2024-08-02 08:14 | PC.NURSE ---
Notified resident MD of pt BP 170/125. Said they will put in pt home BP meds.
[2024-08-02 08:46] LABS: Troponin I 0.177 ng/mL (0.0-0.045)
[2024-08-02] MEDS: LOSARTAN POTASSIUM 25 MG TABLET 100 MG PO (08:55)
[2024-08-02] MEDS: BUMETANIDE INJ 0.25 MG/ML VIAL 4 ML 2 MG IVP (08:56)
--- NOTE | 2024-08-02 09:51 | ESCONSULT_ITS ---
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 HPI Data of Consult Requesting Physician: Odette Corbin MD Admitting Provider: Danny Latif MD Attending Provider: Odette Corbin MD Primary Care Provider: Cale Garcia MD Consult Narrative History of present illness: 44-year-old male with significant past medical history of hypertension, diabetes mellitus type 2, currently controlled with diet, HFrEF LVEF 20% on 2020 2/ dilated cardiomyopathy s/p pacemaker placement in 2022, methamphetamine and marijuana abuse presented to ED on 08/02/2024 with chief complaint of shortness of breath that has been worsening for past 2 days. He reported that he had to take 3 days back, when he took ibuprofen, and methamphetamine and next day he started developing SOB. Initially he thought that his daily dose of Lasix 80 Mg p.o. would help him, but his SOB or send and he decided to come to the ED. He denied any headache, chest pain, abdominal pain, any changes in bowel or bladder habit, leg swelling or fever or chills. He also denied any nausea or vomiting. Cardiology consulted for CHF exacerbation in the setting for fluid overload. cc:: cc: Odette Corbin MD Exam Vital Signs Temp Pulse Resp BP Pulse Ox O2 Del Method O2 Flow Rate 97.9 F 86 16 170/125 H 94 L Room Air 3 08/02/24 08:06 08/02/24 08:56 08/02/24 08:06 08/02/24 08:56 08/02/24 08:06 08/02/24 08:06 08/02/24 07:05 FiO2 98 08/02/24 05:01 Narrative Exam General: Mildly obese, middle age male, no acute distress, unkempt HEENT: Moist mucous membranes, oropharynx clear Neck: Supple, No masses, No JVD CVS: S1S2 Regular rate and rhythm, No murmurs, rubs or gallops Lungs: crackles heared Abd: Soft, NT/ND, +BS, no organomegaly Ext: No edema, warm and well perfused Skin: No rash Psych: Appropriate mood and affect, Alert and Oriented x 3 Results Labs 08/02/24 03:49 08/02/24 03:49 Labs: Short CBC 08/02/24 08/02/24 Range/Units 00:56 03:49 WBC 11.8 H 10.6 (3.8-10.6) Thou/mm3 Hgb 14.6 14.2 (13.5-16.0) g/dL Hct 42.4 41.8 (41.0-53.0) % Plt Count 213 196 (140-440) Thou/mm3 BMP 08/02/24 08/02/24 00:56 03:49 Sodium 142 141 Potassium 3.8 3.9 Chloride 107 104 Carbon Dioxide 26.3 26.1 BUN 19 21 Creatinine 1.5 H 1.4 H Glucose 164 H 137 H Calcium 9.3 9.2 Cardiac Enzymes 08/02/24 08/02/24 08/02/24 Range/Units 00:56 03:49 08:08 Troponin I 0.126 H* 0.158 H* 0.177 H* (0.0-0.045) ng/mL Liver Function 08/02/24 08/02/24 Range/Units 00:56 03:49 Total Bilirubin 1.1 1.0 (0.3-1.2) mg/dL AST 24 26 (0-34) U/L ALT 26 27 (10-49) U/L Alkaline Phosphatase 111 104 (46-116) U/L Albumin 4.0 3.8 (3.5-5.0) gm/dL Urine 08/02/24 Range/Units 01:00 Urine Color Yellow (Lt Yel-Yel) Urine Clarity Clear (Clear/Hazy) Urine pH 6.0 (5.0-7.0) Ur Specific [place] 1.034 (1.001-1.035) Urine Protein 2+ A (Neg - Trace) Urine Glucose (UA) Negative (Negative) Quality Measures Quality Measures none Medications Home Medications and Allergies Home Medications ?Medication ?Instructions ?Recorded ?Confirmed ?Type aspirin 81 mg tablet,delayed 81 mg PO QDAY 09/08/21 History release carvedilol 12.5 mg tablet 1 tab PO BID 09/08/21 History clopidogrel 75 mg tablet 1 tab PO QDAY 09/08/2108/02 History furosemide 20 mg tablet 20 mg PO QDAY 09/08/2108/02 History losartan 100 mg tablet 1 tab PO QDAY 09/08/2108/02 History spironolactone 25 mg tablet 1 tab PO QDAY 09/08/2107/24 History atorvastatin 80 mg tablet 1 tab PO HS 09/19/21 5 History furosemide 40 mg tablet 40 mg PO BID 08/02/24 History ibuprofen 200 mg capsule 400 mg PO DAILY PRN For toot h pain 08/02/24 08/02/24 History Allergies Allergy/AdvReac Type Severity Reaction Status Date / Time No Known Allergies Allergy Verified 05/18/22 11:36 Visit Medications Acetaminophen (Acetaminophen 325 Mg Tablet) 650 mg PO Q6H PRN PRN Reason: Fever >101.5 Stop: 09/01/24 04:49 Acetaminophen (Acetaminophen 325 Mg Tablet) 650 mg PO Q6H PRN PRN Reason: PAIN SCALE 1-3 (mild Stop: 09/01/24 04:49 Albuterol/Ipratropium (Albuterol/Ipratropium (Duoneb) Rt Jacqueline 3 Ml Nebu) 3 ml INH Q6HRRT [facility] Stop: 09/01/24 04:59 Last Admin: 08/02/24 07:02 Dose: 3 ml Azithromycin (Azithromycin 250 Mg Tablet) 500 mg PO QDAY@0600 [facility] Stop: 08/05/24 05:59 Last Admin: 08/02/24 06:10 Dose: 500 mg Bumetanide (Bumetanide Inj 0.25 Mg/Ml Vial 4 Ml) 2 mg IVP BID [facility] Stop: 09/01/24 08:59 Last Admin: 08/02/24 08:56 Dose: 2 mg Heparin Sodium (Porcine) (Heparin Sod Inj 5000 Unit/Ml Vial) 5,000 unit SC Q12HR [facility] Stop: 08/16/24 08:59 Last Admin: 08/02/24 08:58 Dose: 5,000 unit Ceftriaxone Sodium/Dextrose (Rocephin/D5w 1gm Iv Premix) 1 gm in 50 mls @ 100 mls/hr IV DAILY [facility] Stop: 08/10/24 08:59 Magnesium Sulfate (Magnesium Sulfate Ivpb) 4 gm in 50 mls @ 12.5 mls/hr IV X1 ONE Stop: 08/02/24 10:13 Last Admin: 08/02/24 06:46 Dose: 12.5 mls/hr Losartan Potassium (Losartan Potassium 25 Mg Tablet) 100 mg PO QDAY [facility] Stop: 09/01/24 08:39 Last Admin: 08/02/24 09:21 Dose: Not Given Discontinued Medications Aspirin (Aspirin 325 Mg Tablet) 325 mg PO X1 ONE Stop: 08/02/24 04:09 Last Admin: 08/02/24 04:44 Dose: 325 mg Furosemide (Furosemide Inj 10 Mg/Ml 4ml Vial) 80 mg IVP X1 ONE Stop: 08/02/24 04:03 Last Admin: 08/02/24 04:57 Dose: 80 mg Heparin Sodium (Porcine) (Heparin Sod Inj 5000 Unit/Ml Vial) 5,000 unit SC Q8HR GAEL Stop: 08/16/24 05:59 Last Admin: 08/02/24 06:09 Dose: 5,000 unit Hydralazine HCl (Hydralazine Inj 20 Mg/Ml Vial) 10 mg IV X1 ONE Stop: 08/02/24 04:03 Last Admin: 08/02/24 05:09 Dose: Not Given Ceftriaxone Sodium/Dextrose (Rocephin/D5w 1gm Iv Premix) 1 gm in 50 mls @ 100 mls/hr IV X1 ONE Stop: 08/02/24 05:44 Last Infusion: 08/02/24 06:53 Dose: Infused Magnesium Oxide (Magnesium Oxide 400 Mg Tablet) 400 mg PO X1 ONE Stop: 08/02/24 05:31 Last Admin: 08/02/24 06:33 Dose: 400 mg Oxycodone/Acetaminophen (Oxycodone/Apap 5/325 Tablet) 1 tab PO X1 ONE Stop: 08/02/24 04:21 Last Admin: 08/02/24 05:08 Dose: 1 tab Potassium Chloride (Potassium Chloride 20 Meq Tabcr) 40 meq PO X1 ONE Stop: 08/02/24 06:16 Last Admin: 08/02/24 06:33 Dose: 40 meq Assessment & Plan Plan #Acute hypoxic respiratory failure 2/2 #Pulmonary edema #HFrEF exacerbation 2/2 #Methamphetamine abuse Assessment: The patient presented with SOB, after taking methamphetamine and ibuprofen for toothache 3 days back, SOB continued worsening and chest x-ray was significant for severe vascular congestion significant for bilateral pulmonary edema in the setting of known HFrEF with LVEF 20% on 2020. 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 labs for CMP and electrolytes - Patient's care was discussed with my attending physician, Dr. Obey Valentin MD Internal Medicine PGY-3 Attending Provider Attestation/Addendum I attest that I was physically present for the evaluation, physical examination, lab and imaging review of the patient with the residents. I discussed the case with the residents and agree with the findings and plans of care as documented above. Patient is a 44 years old male with past medical history of hypertension, diabetes mellitus, HFrEF, dilated cardiomyopathy status post pacemaker placement, methamphetamine and marijuana abuse who presented to the ED with complaint of shortness of breath for 2 days. Patient took his Lasix but did not get enough relief and decided to visit the ED. In the ED, he had a blood pressure of 145/106, pulse 105. WBC count was 11.8, creatinine 1.5, glucose 164, BNP 1117. Urine toxicology was positive for methamphetamine and marijuana. Chest xray shows vascular congestion. Patient was placed on BiPAP at the time of exam. We will admit the patient for management of acute hypoxic respiratory failure secondary to chf exacerbation. We will start him on Bumex IV, fluid restriction, suplemental oxygen. We will obtain cardiology consult, echocardiography. Patient also has elevated WBC count, concerning for superimposed bacterial pneumonia, we will start IV antibiotics. Patient has mild elevation in troponin, likely type II, we will trend and monitor closely. Danny Latif MD
--- NOTE | 2024-08-02 12:16 | PC.NURSE ---
Pt refused garza. Will use urinal. RN explained importance of measuring intake and output. Pt stated they understand and will use urinal, allowing staff to measure prior to dumping.
[2024-08-02 12:47] LABS: Troponin I 0.155 ng/mL (0.0-0.045)
--- NOTE | 2024-08-02 15:47 | ESPR_ITS ---
Documentation for date of: 08/02/24 Subjective Subjective Interval history: Patient examined at bedside. No major complaints, SOB has improved after starting diuresis with IV Bumex 2mg BID. Denies any chest pain. Troponins are downtrending. Home losartan 100mg daily was restarted which controlled his hypertension. Placing garza to monitor IOs for CHF exacerbation with diuresis, lungs clear to ausculation, no LE edema. Ceftriaxone and azithromycin for CAP. Exam Vital Signs Temp Pulse Resp BP Pulse Ox O2 Del Method O2 Flow Rate 98.8 F 94 18 130/107 H 98 Room Air 3 08/02/24 14:50 08/02/24 14:50 08/02/24 14:50 08/02/24 14:50 08/02/24 14:50 08/02/24 14:50 08/02/24 07:05 FiO2 98 08/02/24 05:01 Narrative Exam General: Mildly obese, middle age male, no acute distress, unkempt HEENT: Moist mucous membranes, oropharynx clear Neck: Supple, No masses, No JVD CVS: S1S2 Regular rate and rhythm, No murmurs, rubs or gallops Lungs: lungs clear to auscultation Abd: Soft, NT/ND, +BS, no organomegaly Ext: No edema, warm and well perfused Skin: No rash Psych: Appropriate mood and affect, Alert and Oriented x 3 Objective Labs 08/02/24 03:49 08/02/24 03:49 Labs: Laboratory Results - last 24 hr 08/02/24 08/02/24 08/02/24 00:56 01:00 03:49 WBC 11.8 H 10.6 RBC 5.04 4.84 Hgb 14.6 14.2 Hct 42.4 41.8 MCV 84 86 MCH 29.0 29.3 MCHC 34.4 34.0 RDW Std Deviation 40.8 41.2 Plt Count 213 196 Neut % (Auto) 76 76 Lymph % (Auto) 13 15 [place] % (Auto) 8 7 Eos % (Auto) 1 1 Baso % (Auto) 1 1 Neut # (Auto) 9.0 H 8.1 H Lymph # (Auto) 1.6 1.6 [place] # (Auto) 0.9 H 0.7 Eos # (Auto) 0.2 0.1 Baso # (Auto) 0.1 0.1 Immature Gran # (Auto) 0.06 H 0.04 H Absolute Nucleated RBC 0.00 0.00 Immature Gran % 1 H 0 Nucleated RBC % 0 0 Sodium 142 141 Potassium 3.8 3.9 Chloride 107 104 Carbon Dioxide 26.3 26.1 Anion Gap 9 11 BUN 19 21 Creatinine 1.5 H 1.4 H Estim Creat Clear Calc 82.6 88.5 eGFR 59 L > 60 BUN/Creatinine Ratio 13 15 Glucose 164 H [address] Glu mg/dL 154 H Hemoglobin A1c 7.0 H Calculated Osmolality 289 286 Calcium 9.3 9.2 Corrected Calcium 9.3 9.4 Magnesium 1.6 1.6 Total Bilirubin 1.1 1.0 AST 24 26 ALT 26 27 Alkaline Phosphatase 111 104 Troponin I 0.126 H* 0.158 H* B-Natriuretic Peptide 1117 H* Total Protein 6.5 6.0 Albumin 4.0 3.8 Globulin 2.5 2.2 L Albumin/Globulin Ratio 1.6 1.7 Triglycerides 91 Cholesterol 82 L LDL Cholesterol, Calc 42 HDL Cholesterol 22 L Cholesterol/HDL Ratio 3.7 L TSH 3.89 Ur Collection Type Clean Catch Urine Color Yellow Urine Clarity Clear Urine pH 6.0 Ur Specific [place] 1.034 Urine Protein 2+ A Urine Glucose (UA) Negative Urine Ketones Negative Urine Blood Negative Urine Nitrite Negative Urine Bilirubin Negative Urine Urobilinogen (Auto) 2.0 Ur Leukocyte Esterase Negative Urine RBC 3 Urine WBC 2 Ur Squamous Epith Cells < 1 Urine Bacteria None Hyaline Casts < 1 Urine Opiates Screen Negative Urine Fentanyl Screen Negative Ur Barbiturates Screen Negative U Amphetamin/Meth Scrn Positive A U Benzodiazepines Scrn Negative U Cocaine Metab Screen Negative U Marijuana (THC) Screen Positive A 08/02/24 08/02/24 08:08 12:00 WBC RBC Hgb Hct MCV MCH MCHC RDW Std Deviation Plt Count Neut % (Auto) Lymph % (Auto) [place] % (Auto) Eos % (Auto) Baso % (Auto) Neut # (Auto) Lymph # (Auto) [place] # (Auto) Eos # (Auto) Baso # (Auto) Immature Gran # (Auto) Absolute Nucleated RBC Immature Gran % Nucleated RBC % Sodium Potassium Chloride Carbon Dioxide Anion Gap BUN Creatinine Estim Creat Clear Calc eGFR BUN/Creatinine Ratio Glucose Estimated Ave Glu mg/dL Hemoglobin A1c Calculated Osmolality Calcium Corrected Calcium Magnesium Total Bilirubin AST ALT Alkaline Phosphatase Troponin I 0.177 H* 0.155 H* B-Natriuretic Peptide Total Protein Albumin Globulin Albumin/Globulin Ratio Triglycerides Cholesterol LDL Cholesterol, Calc HDL Cholesterol Cholesterol/HDL Ratio TSH Ur Collection Type Urine Color Urine Clarity Urine pH Ur Specific [place] Urine Protein Urine Glucose (UA) Urine Ketones Urine Blood Urine Nitrite Urine Bilirubin Urine Urobilinogen (Auto) Ur Leukocyte Esterase Urine RBC Urine WBC Ur Squamous Epith Cells Urine Bacteria Hyaline Casts Urine Opiates Screen Urine Fentanyl Screen Ur Barbiturates Screen U Amphetamin/Meth Scrn U Benzodiazepines Scrn U Cocaine Metab Screen U Marijuana (THC) Screen Quality Measures Quality Measures none Assessment & Plan Assessment Current Active Medications: Generic Name Dose Route Start Last Admin Trade Name Freq PRN Reason Stop Dose Admin Acetaminophen 650 mg 08/02/24 04:50 Acetaminophen 325 Mg Tablet PO 09/01/24 04:49 Q6H PRN Fever >101.5 Acetaminophen 650 mg 08/02/24 04:50 Acetaminophen 325 Mg Tablet PO 09/01/24 04:49 Q6H PRN PAIN SCALE 1-3 (mild Albuterol/Ipratropium 3 ml 08/02/24 07:00 08/02/24 12:06 Albuterol/Ipratropium (Duoneb) Rt Jacqueline 3 Ml Nebu INH 09/01/24 04:59 3 ml Q6HRRT GAEL Administration Azithromycin 500 mg 08/02/24 06:00 08/02/24 06:10 Azithromycin 250 Mg Tablet PO 08/05/24 05:59 500 mg QDAY@0600 GAEL Administration Bumetanide 2 mg 08/02/24 09:00 08/02/24 08:56 Bumetanide Inj 0.25 Mg/Ml Vial 4 Ml IVP 09/01/24 08:59 2 mg BID GAEL Administration Heparin Sodium (Porcine) 5,000 unit 08/02/24 09:00 08/02/24 08:58 Heparin Sod Inj 5000 Unit/Ml Vial SC 08/16/24 08:59 5,000 unit Q12HR GAEL Administration Ceftriaxone Sodium/Dextrose 1 gm in 50 mls @ 100 mls/hr 08/03/24 09:00 Rocephin/D5w 1gm Iv Premix IV 08/10/24 08:59 DAILY GAEL Losartan Potassium 100 mg 08/02/24 08:40 08/02/24 09:21 Losartan Potassium 25 Mg Tablet PO 09/01/24 08:39 Not Given QDAY GAEL Plan The patient is a 44-year-old male with significant past medical history of hypertension, diabetes mellitus type 2, currently controlled with diet, HFrEF LVEF 20% on 2020 2/2 dilated cardiomyopathy s/p pacemaker placement in 2022, methamphetamine and marijuana abuse presented to ED on 08/02/2024 with chief complaint of shortness of breath that has been worsening for past 2 days is currently being managed for acute hypoxic respiratory failure secondary to pulmonary edema secondary to HFrEF exacerbation in the setting of methamphetamine abuse. #Acut CHF exacerbation #Hx HFrEF (20%) 2/ #Methamphetamine abuse The patient presented with SOB, after taking methamphetamine and ibuprofen for toothache 3 days back, SOB continued worsening and chest x-ray was significant for severe vascular congestion significant for bilateral pulmonary edema in the setting of known HFrEF with LVEF 20% on 2020. Received IV Lasix 80 Mg x 1 in the ED, and hydralazine 10 Mg IV x 1 -Electronic Field Service Engineer Dr. Barnhart consulted -continue Bumex 2 mg IV BID -place garza -Strict ins and outs with fluid restriction to 1200 cc/day -On cardiac diet -echo pending -Maintain potassium greater than 4 and magnesium greater than 2 -Consider GDMT when stable -Daily a.m. labs for CMP and electrolytes #Possible community-acquired pneumonia Chest x-ray suspicious for right middle lobe pneumonia -DuoNeb every 6 hourly -ceftriaxone and azithromycin daily #NSTEMI, likely type II Likely secondary to methamphetamine abuse Presented with troponin level 0.106 and trended up to 0.126 No significant EKG changes, EKG revealed sinus rhythm and no ST or T wave changes -Trend troponin every 4 hourly until delta is achieved #CKD stage IIIa #Proteinuria 2/2 #Diabetes mellitus type 2 Patient's creatinine was 1.4 9 months back, with EGFR of 59 and presented with creatinine of 1.5 and GFR 59. UA revealed 2+ proteinuria Patient reported that his diabetes is well-controlled by proper diet A1c 7.0. -Avoid nephrotoxic drugs -resumed savage losartan 100mg daily -Daily a.m. labs for renal panel #Marijuana abuse disorder -Social service referral done -Counseling done regarding methamphetamine and marijuana abuse #Hypertension #Dilated cardiomyopathy 2/2 methamphetamine abuse Currently blood pressure borderline high -Continue to monitor -Expected to improve with Bumex use Health maintenance: Dispo: telemetry, CHF ex Diet: Cardiac diet, fluid restriction 1200 cc/day DVT prophylaxis: Subcu heparin every 8 hour CODE STATUS: Full code The patient's management plan was discussed with my attending physician . Janie Boateng, PGY-1
[2024-08-02 17:23] LABS: Troponin I 0.149 ng/mL (0.0-0.045)
--- NOTE | 2024-08-02 19:45 | PC.NURSE ---
Called [place] [employer] to report patient eloping with IV intact. Pt not found in room around 1700 and never returned. Phone number of pt and phone number of pt mother given to [employer].
== END 2024-08-02 17:00 | disposition left against medical advice (07) | DRG 194 ==
LOC: SERX 04:17 → SERHOLD 06:05
PROVIDERS: Physician Assistant; Student in an Organized Health Care Education/Training Program; Admitting Provider Student in an Organized Health Care Education/Training Program; Emergency Provider Emergency Medicine; PCP Family Medicine; Visit Provider Internal Medicine
DX: I13.0 Hypertensive heart and chronic kidney disease with heart failure and stage 1 through stage 4 chronic kidney disease, or unspecified chronic kidney disease (principal); I42.0 Dilated cardiomyopathy; I50.23 Acute on chronic systolic (congestive) heart failure; J18.9 Pneumonia, unspecified organism; E11.22 Type 2 diabetes mellitus with diabetic chronic kidney disease; N18.31 Chronic kidney disease, stage 3a; F12.19 Cannabis abuse with unspecified cannabis-induced disorder; J96.01 Acute respiratory failure with hypoxia; F15.10 Other stimulant abuse, uncomplicated; I42.7 Cardiomyopathy due to drug and external agent; Z95.0 Presence of cardiac pacemaker; M10.9 Gout, unspecified; Z87.891 Personal history of nicotine dependence; Z79.899 Other long term (current) drug therapy; Z53.29 Procedure and treatment not carried out because of patient's decision for other reasons
CPT/HCPCS: 36415; 71045; 80053; 80061; 80307; 81001; 83036; 83735; 83880; 84100; 84443; 84484; 85025; 87811; 93005; 93306; 94640; 94660; 96365; 96372; 96375; 99291; A9270; J0696; J1643; J1940; J3475; J3490

== ENCOUNTER 2024-08-25 05:15 | Emergency (ER) | payer MEDICAID, SELFPAY ==
[2024-08-25 05:52] VITALS: BP 153/102; PULSE 88; RESP 20; TEMP 36.9; O2SAT 98
[2024-08-25 06:04] VITALS: PULSE 98; RESP 21; O2SAT 94; BMI 33.9
--- NOTE | 2024-08-25 06:16 | PC.LAC ---
PT TO [facility] WITH C/O SOB X 2 WEEKS, PT STATES HE'S ALSO HAD A PRODUCTIVE COUGH, PT STATES SOB WORSENS WHEN LYING DOWN. PER EMS X2 NEB TX GIVEN IN ROUTE. PT HAS HX OF CHF, HTN, PACEMAKER. PT PRESENTS TO ER IN NO ACUTE DISTRESS. RESPIRATIONS EVEN AND UNLABORED. PT SPEAKING IN FULL SENTENCES. PT PLACED ON CARDIAC AND VITAL SIGN MONITORING. CHART UP FOR MD TO SEE. CALL LIGHT WITHIN REACH. BED AT LOWEST POSITION. PT CARE ONGOING AT THIS TIME.
--- NOTE | 2024-08-25 06:24 | XR_ITS ---
Examination: AP chest single view TECHNIQUE: AP portable upright chest single view Exam date and time: August 25, 2024 at 0636 hours INDICATION: Chest pain shortness of breath today. FINDINGS: [id number] CHF Mild enlargement cardiac contour. Prominent vascular congestion. Perihilar basilar edema The ventricular lead is not identified IMPRESSION: [id number] CHF
[2024-08-25 06:27] VITALS: PULSE 93
--- NOTE | 2024-08-25 06:42 | PD.EDSOB ---
ED SOB =RME/HPI General Chief Complaint: Shortness of Breath/Dyspnea Stated Complaint: SHORTNESS OF BREATH Time Seen by Provider: 08/25/24 06:24 Arrival date/time: 08/25/24 05:15 RME / HPI RME / HPI Narrative: 44 year old male with a history of CHF, HTN, methamphetamine abuse, was presented to the ER with a chief complaint of SOB accompanied by cough. Patient stated, I feel like I couldn't breath. Per patient, arrived 2 weeks ago with similar symtoms but SOB continued to increase resulting in another ER visit. Patient stated he has taken Motrin for 3 days and claims his SOB increased while using Motrin. Patient states he is compliant with his medications. Denies fever. Related Data Home Medications ?Medication ?Instructions ?Recorded ?Confirmed aspirin 81 mg tablet,delayed 81 mg PO QDAY 09/08/21 08/02/24 release carvedilol 12.5 mg tablet 1 tab PO BID 09/08/21 08/02/24 clopidogrel 75 mg tablet 1 tab PO QDAY 09/08/21 08/02/24 furosemide 20 mg tablet 20 mg PO QDAY 09/08/21 08/02/24 losartan 100 mg tablet 1 tab PO QDAY 09/08/21 08/02/24 spironolactone 25 mg tablet 1 tab PO QDAY 09/08/21 08/02/24 atorvastatin 80 mg tablet 1 tab PO HS 09/19/21 08/02/24 furosemide 40 mg tablet 40 mg PO BID 08/02/24 08/02/24 ibuprofen 200 mg capsule 400 mg PO DAILY PRN For tooth pain 08/02/24 08/02/24 Allergies Allergy/AdvReac Type Severity Reaction Status Date / Time No Known Allergies Allergy Verified 05/18/22 11:36 Review of Systems Review of Systems Systems Reviewed: All systems reviewed, normal except as documented Narrative Review of Systems: Gen: No fever, no chills, no weight loss EYES: No discharge, no visual changes, no pain HEENT: No ear pain, no congestion, no sore throat PULM: +shortness of breath, +cough, no congestion CV: No chest pain, no dyspnea on exertion, no palpitations GI: No nausea, no vomiting, no diarrhea, no pain, no constipation : No frequency, no urgency, no dysuria Musc/skel: No joint pain, no back pain Skin: No rash Psyc: No hallucinations, no depression Heme/Lymph: No easy bleeding or bruising tendencies Neuro: No weakness, no headache Past Medical History Past Medical History CARDIAC: Positive Cardiac Disorders, Congestive Heart Failure, Edema and Hypertension RESPIRATORY: Positive Chronic Obstructive Pulmonary Disease (COPD) and Pneumonia GENITOURINARY: Positive Genitourinary Disorders and Kidney Stones MUSCULOSKELETAL: Positive Musculoskeletal Disorders ENDOCRINE: Positive Endocrine Disorders and Diabetes Mellitus Type 2 (Per pt a little bit diabetic ) OTHER HISTORY: Positive Hospitalization Family History FAMILY HISTORY: Positive Family Cardiac Disorders Surgical History SURGICAL: Positive Cardiac Surgery and Pacemaker Social History SMOKING STATUS: Former smoker SECOND HAND EXPOSURE: No SUBSTANCE USE: methamphetamine ED Exam Narrative Physical exam: GENERAL APPEARANCE: alert and oriented x 4, well-developed, well-nourished, no acute distress HEENT: Normocephalic, atraumatic; pupils equal, round, reactive to light; EOMI; mucous membranes pink, moist; oropharynx clear NECK: Supple LUNGS: CTABL; no wheezes, no rales, no rhonchi HEART: Regular rate, regular rhythm; normal S1, S2; no murmurs ABDOMEN: non distended; normal BS; soft, no tenderness, no guarding, no rebound; no masses, no organomegaly, no hernia BACK: no CVA tenderness EXTREMITIES: atraumatic; no edema NEUROLOGIC: awake; alert and oriented x4; cranial nerves II-XII grossly intact; no focal sensory or motor deficits PSYCHIATRIC: appropriate mood and affect SKIN: warm, dry, normal color; no rashes Course Course Course Narrative: Chest x-ray has been ordered due to determining etiology of shortness of breath. 0807: Patient eloped. Quality Measures none Orders Category Date Time Status Per Diem Rn NOW Care 08/25/24 06:24 Completed EKG (ED ONLY) *Do not use* NOW Care 08/25/24 06:20 Completed EKG (ED Only) Stat Exams 08/25/24 06:20 Ordered XR chest 1V portable Stat Exams 08/25/24 06:24 Completed B-Type Natriuretic Peptide Stat Lab 08/25/24 06:55 Completed CBC Stat Lab 08/25/24 06:55 Completed Comprehensive Metabolic Panel Stat Lab 08/25/24 06:55 Completed Lipase Stat Lab 08/25/24 06:55 Completed Magnesium Stat Lab 08/25/24 06:55 Completed Troponin I Stat Lab 08/25/24 06:55 Completed Furosemide Inj [Lasix Inj] Med 08/25/24 06:43 Discontinued 40 mg IVP X1 ONE Vital Signs Vital signs: Vital Signs Temperature 98.4 F 08/25/24 05:52 Pulse Rate 88 08/25/24 05:52 Respiratory Rate 20 08/25/24 05:52 Blood Pressure 153/102 H 08/25/24 05:52 Pulse Oximetry (%) 98 08/25/24 05:52 Oxygen Delivery Method Room Air 08/25/24 05:52 Shortness of Breath / Dyspnea MDM Narrative MDM Narrative:: IJuana, am scribing for and in the presence of Dr. Edwards Patient data External records reviewed:: [facility] previous records Clinical information provided by:: patient Social determinants that could affect healthcare access:: substance use Patient has the following chronic illnesses:: CHF, HTN, methamphetamine abuse How is presenting disease/condition affected by chronic disease/condition?: exacerbated by Evaluation data The following diagnostics were reviewed and interpreted by me:: lab results, radiology exam(s) and EKG tracing(s) (EKG#1: EKG at 0548 hours.Interpreted by me: sinus rhythm, rate 92, frequent PPC, mild artifact, Q Wave V1 and V2, no ischemic changes.) Lab and/or radiology exams considered but not ordered:: none Interpretation Summary: Ordering Physician: Radha Edwards MD Date of Service: 08/25/24 Procedure(s): XR chest 1V portable Accession Number(s): [id number] cc: Tramaine Hollis MD; NO PRIMARY/FAMILY,PHYSICIAN; Radha Edwards MD~ Examination: AP chest single view TECHNIQUE: AP portable upright chest single view Exam date and time: August 25, 2024 at 0636 hours INDICATION: Chest pain shortness of breath today. FINDINGS: [id number] CHF Mild enlargement cardiac contour. Prominent vascular congestion. Perihilar basilar edema The ventricular lead is not identified IMPRESSION: [id number] CHF Dictated By: Tramaine Hollis MD Signed By: <Electronically signed by Tramaine Hollis MD in OV> 08/25/24 0806 Medications / Prescriptions Medications or Prescriptions considered but not ordered:: none Medication administrations:: Medication Administration History Discontinued Medications Furosemide (Furosemide Inj 10 Mg/Ml 4ml Vial) 40 mg IVP X1 ONE Stop: 08/25/24 06:44 Last Admin: 08/25/24 07:22 Dose: 40 mg Documented By: CHRISTOPHER see above. Consultations Consultation(s) initiated? (list below): No Diagnosis Shortness of Breath Differential Diagnosis: acute exacerbation of chronic obstructive airways disease, congestive heart failure and community acquired pneumonia Most likely diagnosis given after review of the tests above:: Dyspnea CHF Admission Indicated Admission indicated?: not indicated Admission Request Was there a request for admission?: No Disposition Plan Disposition Plan: Discharge (patient eloped.) Discharge Attestation Discharge Attestation: The patient and all family members were given an opportunity to ask questions and understood the discharge instructions. Discharge instructions specifically effects, indications for sooner follow up or return to the emergency department, and the expected course of current diagnosis. Patient condition: Stable Discharge Plan Plan Patient Disposition: Elopement Prescriptions/Referrals Prescriptions/Med Rec: No Action losartan 100 mg tablet 1 tab PO QDAY Patient Comments: TAKE 1 TABLET BY MOUTH ONCE DAILY FOR 30 DAYS carvedilol 12.5 mg tablet 1 tab PO BID Patient Comments: TAKE 1 TABLET BY MOUTH TWICE DAILY WITH FOOD clopidogrel 75 mg tablet 1 tab PO QDAY Patient Comments: TAKE 1 TABLET BY MOUTH ONCE DAILY aspirin 81 mg tablet,delayed release (DR/EC) 81 mg PO QDAY Patient Comments: TAKE 1 TABLET BY MOUTH ONCE DAILY spironolactone 25 mg tablet 1 tab PO QDAY Patient Comments: TAKE 1 TABLET BY MOUTH ONCE DAILY furosemide 20 mg tablet 20 mg PO QDAY Patient Comments: TAKE 1 TABLET BY MOUTH ONCE DAILY atorvastatin 80 mg tablet 1 tab PO HS Patient Comments: TAKE 1 TABLET BY MOUTH ONCE DAILY ibuprofen 200 mg capsule 400 mg PO DAILY PRN (Reason: For tooth pain ) furosemide 40 mg tablet 40 mg PO BID Patient Comments: TAKE 1 TABLET BY MOUTH TWICE DAILY Referrals: No Primary/Family,Physician [Primary Care Provider] - In 1 week Problem List Clinical Impression: Dyspnea, CHF (congestive heart failure) Patient/Caregiver Discharge Instructions Print Language: Algerian
[2024-08-25 07:22] VITALS: BP 128/91; PULSE 90
[2024-08-25] MEDS: FUROSEMIDE INJ 10 MG/ML 4ML VIAL 40 MG IVP (07:22)
[2024-08-25 07:30] LABS: Basophils # (Auto) 0.1 Thou/mm3 (0.0-0.2); Basophils % (Auto) 1 % (0-2.5); Eosinophils # (Auto) 0.2 Thou/mm3 (0.0-0.5); Eosinophils % (Auto) 1 % (0-10); Hematocrit 46.6 % (41.0-53.0); Hemoglobin 15.7 g/dL (13.5-16.0); Immature Granulocytes % (Auto) 1 % (0-0); Immature Granulocytes Auto 0.08 Thou/mm3 (0.00-0.00); Lymphocytes # (Auto) 1.3 Thou/mm3 (1.0-4.8); Lymphocytes % (Auto) 10 % (10-50); Mean Corpuscular HGB Conc 33.7 g/dl (31.0-37.0); Mean Corpuscular Hemoglobin 29.5 pg (25.0-35.0); Mean Corpuscular Volume 88 fL (80-100); Monocytes # (Auto) 1.2 Thou/mm3 (0.0-0.8); Monocytes % (Auto) 9 % (0-12); Neutrophils # (Auto) 10.1 Thou/mm3 (1.8-7.7); Neutrophils % (Auto) 78 % (37-80); Nucleated Red Blood Cell % 0 /100 WBC (0); Platelet Count 193 Thou/mm3 (140-440); Red Blood Count 5.32 Miln/mm3 (4.50-5.90); White Blood Count 12.9 Thou/mm3 (3.8-10.6)
[2024-08-25 07:51] LABS: Alanine Aminotransferase 24 U/L (10-49); Albumin, Serum 4.1 gm/dL (3.5-5.0); Albumin/Globulin Ratio 1.6 (1.2-2.2); Alkaline Phosphatase 103 U/L (46-116); Anion Gap 9 (7-16); Aspartate Amino Transferase 24 U/L (0-34); BUN/Creatinine Ratio 16 Ratio (12-20); Blood Urea Nitrogen 25 mg/dL (9-23); Calcium 9.5 mg/dL (8.3-10.6); Calcium (Corrected) 9.5 mg/dL (8.5-10.1); Carbon Dioxide 27.5 mMol/L (20.0-31.0); Chloride 100 mMol/L (98-107); Creatinine (Component) 1.6 mg/dL (0.6-1.3); Estimated Creatinine Clearance 77.4 mL/min (>60); Globulin 2.5 gm/dL (2.3-3.5); Glucose 183 mg/dL (74-106); Lipase 30 U/L (12-53); Magnesium 1.9 mg/dL (1.6-2.6); Osmolality,Calculated 281 (275-295); Potassium 3.9 mMol/L (3.4-5.1); Sodium 136 mMol/L (136-145); Total Protein 6.6 gm/dL (5.7-8.2); eGFR 54 See Note
[2024-08-25 07:55] LABS: Troponin I 0.099 ng/mL (0.0-0.045)
[2024-08-25 08:00] VITALS: BP 122/80; PULSE 89; RESP 16; TEMP 36.8; O2SAT 99
--- NOTE | 2024-08-25 08:09 | PC.NURSE ---
I WAS INFORMED BY BIOMEDICAL ENGINEER RUBEN THAT THIS PT GOT OUT OF ROOM ALREADY DRESS IN HIS CLOTHING AND STATED, I AM LEAVING, AND WALKED OUT THE BACK DOOR. DR. ARMENDARIZ MADE AWARE
[2024-08-25 08:55] LABS: B-Type Natriuretic Peptide 1055 pg/mL (0-100)
== END 2024-08-25 08:12 | disposition left against medical advice (07) ==
PROVIDERS: Emergency Provider Emergency Medicine
DX: I11.0 Hypertensive heart disease with heart failure (principal); I50.9 Heart failure, unspecified; I49.3 Ventricular premature depolarization; Z87.891 Personal history of nicotine dependence
CPT/HCPCS: 36415; 71045; 80053; 83690; 83735; 83880; 84484; 85025; 93005; 96374; 99281; J1938

== ENCOUNTER 2024-09-12 03:47 | Emergency (ER) | payer MEDICAID, SELFPAY ==
[2024-09-12] VITALS (8 sets, daily range): BP systolic 121–170; BP diastolic 11–122; PULSE 89–110; RESP 20–28; TEMP 36.5–37; O2SAT 94–100; BMI 33.9
--- NOTE | 2024-09-12 03:59 | PD.EDSOB ---
ED SOB =RME/HPI General Chief Complaint: Shortness of Breath/Dyspnea Stated Complaint: sob, abd pain Time Seen by Provider: 09/12/24 04:10 Arrival date/time: 09/12/24 03:47 RME / HPI RME / HPI Narrative: This section includes all my notes and documentations, including HPI, PE, and ED course. Golden Frazier MD HPI: 44 y/o male with Hx of Methamphetamine use, CHF, Chronic Obstructive Pulmonary Disease, and Diabetes Mellitus Type 2 present to ED BIBA from home c/o shortness of breath and left-sided abdominal pain with cough x approximately 1 month. Abdominal pain with cough is 10/10, but only 3/10 with absence of cough. Patient has been compliant with all medication. No other complaints. ROS: All negative except as documented in HPI. Physical Exam: General: Alert and oriented. In mild respiratory distress. Eyes: Conjunctivae and lids clear. ENT: No nasal congestion. Neck: Supple. Heart: RRR. Lungs: Mild respiratory distress. Moderately decreased air movement. BL rales. Chest: No tenderness. Abdomen: Soft with equivocal left-sided tenderness. Normal bowel sounds. No distension. No rebound or guarding. Back: No CVA tenderness. Legs: No clubbing, cyanosis, edema. Skin: Warm and dry. Neuro: Alert and oriented X 3. I reviewed EMS notes. My interpretation of the EKG is: Sinus rhythm (107 bpm) with PVCs and nonspecific ST-T changes. My interpretation of the chest x-ray is increased vascular congestion, official radiology report is pending. Blood tests and urine tests remarkable for WBC 12.4, D-dimer 1070. Complete diagnostic tests pending, including chest CTA and an abdominal/pelvic CT and more blood/urine tests. Treatment here included IV fluids, Morphine, Lasix, topical nitroglycerin. At 6 AM on 09/12/2024, the care of the patient was transferred to Dr. Dewey ARMENDARIZ. Golden Frazier MD Related Data Home Medications ?Medication ?Instructions ?Recorded ?Confirmed aspirin 81 mg tablet,delayed 81 mg PO QDAY 09/08/21 08/02/24 release carvedilol 12.5 mg tablet 1 tab PO BID 09/08/21 08/02/24 clopidogrel 75 mg tablet 1 tab PO QDAY 09/08/21 08/02/24 furosemide 20 mg tablet 20 mg PO QDAY 09/08/21 08/02/24 losartan 100 mg tablet 1 tab PO QDAY 09/08/21 08/02/24 spironolactone 25 mg tablet 1 tab PO QDAY 09/08/21 08/02/24 atorvastatin 80 mg tablet 1 tab PO HS 09/19/21 08/02/24 furosemide 40 mg tablet 40 mg PO BID 08/02/24 08/02/24 ibuprofen 200 mg capsule 400 mg PO DAILY PRN For tooth pain 08/02/24 08/02/24 Allergies Allergy/AdvReac Type Severity Reaction Status Date / Time No Known Allergies Allergy Verified 05/18/22 11:36 Review of Systems Review of Systems Systems Reviewed: All systems reviewed, normal except as documented Past Medical History Past Medical History RESPIRATORY: Positive Chronic Obstructive Pulmonary Disease (COPD) and Pneumonia GASTROINTESTINAL: Positive Obesity GENITOURINARY: Positive Genitourinary Disorders and Kidney Stones ENDOCRINE: Positive Endocrine Disorders and Diabetes Mellitus Type 2 (Per pt a little bit diabetic ) OTHER HISTORY: Positive Hospitalization Family History FAMILY HISTORY: Positive Family Cardiac Disorders Surgical History SURGICAL: Positive Pacemaker Social History SUBSTANCE USE: methamphetamine ED Exam Narrative Physical exam: Refer to HPI above Course Course Course Narrative: CXR is ordered for determining the etiology of shortness of breath. Quality Measures none Orders Category Date Time Status Bedside COVID-19 Antigen Test NOW Care 09/12/24 04:10 Active Bedside Influenza A&B Antigen Test NOW Care 09/12/24 04:[address] Screening NOW Care 09/12/24 05:06 Ordered EKG (ED ONLY) *Do not use* NOW Care 09/12/24 04:11 Completed Saline [Insert IV] NOW Care 09/12/24 04:10 Active Straight [In and Out Catheter] X1 Care 09/12/24 04:[address] angio chest Stat Exams 09/12/24 05:06 Ordered EKG (ED Only) Stat Exams 09/12/24 04:11 Draft XR chest 1V portable Stat Exams 09/12/24 04:11 Taken ABG [Arterial Blood Gas] Stat Lab 09/12/24 04:31 Completed BNP [B-Type Natriuretic Peptide] Stat Lab 09/12/24 04:51 Received Bilirubin,Direct Stat Lab 09/12/24 04:51 Received CBC Stat Lab 09/12/24 04:15 Completed CMP [Comprehensive Metabolic Panel] Stat Lab 09/12/24 04:51 Received D-Dimer Stat Lab 09/12/24 04:15 Completed Free T4 (Free Thyroxine) Stat Lab 09/12/24 04:51 Received Magnesium Stat Lab 09/12/24 04:51 Received TSH [Thyroid Stimulating Hormone] Stat Lab 09/12/24 04:51 Received Troponin I Stat Lab 09/12/24 04:51 Received UA, C/S IF [Urinalysis, C/S if Indicated] Stat Lab 09/12/24 04:12 Ordered Furosemide Inj [Lasix Inj] Med 09/12/24 04:10 Discontinued 80 mg IVP X1 ONE Morphine Inj Med 09/12/24 04:10 Discontinued 2 mg IVP X1 ONE Nitroglycerin Oint 2% [Nitro-paste Oint 2%] Med 09/12/24 04:10 Discontinued 1 inch TOP X1 ONE Vital Signs Vital signs: Vital Signs Temperature 97.7 F 09/12/24 03:48 Pulse Rate 102 H 09/12/24 03:48 Respiratory Rate 20 09/12/24 03:48 Blood Pressure 146/91 H 09/12/24 03:48 Pulse Oximetry (%) 100 09/12/24 03:48 Oxygen Delivery Method Nasal Cannula 09/12/24 03:48 Oxygen Flow Rate 6 09/12/24 03:48 Shortness of Breath / Dyspnea MDM Narrative MDM Narrative:: Scribe Attestation: IMercy, am scribing for and in the presence of Dr. Frazier. Provider Notation: Although this document has been carefully reviewed, there may still be some phonetic and other typographical errors.? These errors are purely grammatical due to imperfections in the software program and should not be construed in any way to? compromise the substance of the patient's medical care during this visit. 44 y/o male with Hx of Methamphetamine use, CHF, Chronic Obstructive Pulmonary Disease, and Diabetes Mellitus Type 2 present to ED BIBA from home c/o shortness of breath and abdominal pain with cough x approximately 1 month. Abdominal pain with cough is 10/10, but only 3/10 with absence of cough. Patient took Ibuprofen to manage a toothache which he believes caused his LASIX to stop working. Patient has been compliant with all medication. No other complaints. Patient data External records reviewed:: [facility] previous records and EMS form Clinical information provided by:: patient and EMS Social determinants that could affect healthcare access:: substance use (Methamphetamine) Patient has the following chronic illnesses:: CHF, Chronic Obstructive Pulmonary Disease, Pneumonia, Kidney Stones, Diabetes Mellitus Type 2 How is presenting disease/condition affected by chronic disease/condition?: exacerbated by Evaluation data The following diagnostics were reviewed and interpreted by me:: lab results, radiology exam(s) and EKG tracing(s) (My interpretation of the EKG is: Sinus rhythm (107 bpm) with PVCs and nonspecific ST-T changes. Golden Frazier MD) Lab and/or radiology exams considered but not ordered:: None Interpretation Summary: Complete diagnostic test results pending. Medications / Prescriptions Medications or Prescriptions considered but not ordered:: None Medication administrations:: Medication Administration History Discontinued Medications Furosemide (Furosemide Inj 10 Mg/Ml 4ml Vial) 80 mg IVP X1 ONE Stop: 09/12/24 04:11 Morphine Sulfate (Morphine Sulf Inj 10 Mg/Ml Vial) 2 mg IVP X1 ONE Stop: 09/12/24 04:11 Nitroglycerin (Nitroglycerin Oint 2% 1 Inch Packet) 1 inch TOP X1 ONE Stop: 09/12/24 04:11 IV fluids, Morphine, Lasix, topical nitroglycerin. Consultations Consultation(s) initiated? (list below): No Diagnosis Shortness of Breath Differential Diagnosis: acute exacerbation of chronic obstructive airways disease, congestive heart failure, community acquired pneumonia, asthma with exacerbation, pulmonary embolism and other (COPD exacerbation, Methamphetamine use) Most likely diagnosis given after review of the tests above:: Complete diagnostic test results pending. Admission Indicated Admission indicated?: not indicated Explain why admission is indicated or not indicated:: Complete diagnostic test results pending. Admission Request Was there a request for admission?: No Disposition Plan Disposition Plan: other (specify) (Care of the patient was transferred to Dr. ARMENDARIZ.) Discharge Plan Prescriptions/Referrals Prescriptions/Med Rec: No Action losartan 100 mg tablet 1 tab PO QDAY Patient Comments: TAKE 1 TABLET BY MOUTH ONCE DAILY FOR 30 DAYS carvedilol 12.5 mg tablet 1 tab PO BID Patient Comments: TAKE 1 TABLET BY MOUTH TWICE DAILY WITH FOOD clopidogrel 75 mg tablet 1 tab PO QDAY Patient Comments: TAKE 1 TABLET BY MOUTH ONCE DAILY aspirin 81 mg tablet,delayed release (DR/EC) 81 mg PO QDAY Patient Comments: TAKE 1 TABLET BY MOUTH ONCE DAILY spironolactone 25 mg tablet 1 tab PO QDAY Patient Comments: TAKE 1 TABLET BY MOUTH ONCE DAILY furosemide 20 mg tablet 20 mg PO QDAY Patient Comments: TAKE 1 TABLET BY MOUTH ONCE DAILY atorvastatin 80 mg tablet 1 tab PO HS Patient Comments: TAKE 1 TABLET BY MOUTH ONCE DAILY ibuprofen 200 mg capsule 400 mg PO DAILY PRN (Reason: For tooth pain ) furosemide 40 mg tablet 40 mg PO BID Patient Comments: TAKE 1 TABLET BY MOUTH TWICE DAILY Problem List Clinical Impression: SOB (shortness of breath) Patient/Caregiver Discharge Instructions Print Language: Bol[place]ian
--- NOTE | 2024-09-12 04:11 | EKG_ITS ---
[facility] Test Date: 2024-09-12 Pat Name: AMY TRACY Department: Room: - Gender: Male Php Website Developer: : 1980 Requested By: Golden Pérez Order Number: [id number] Reading MD: Golden Pérez Measurements Intervals [place] Rate: 107 P: 64 MN: 176 QRS: -10 QRSD: 98 T: 48 QT: 335 QTc: 448 Interpretive Statements SINUS TACHYCARDIA WITH OCCASIONAL VENTRICULAR PREMATURE COMPLEXES LEFT ATRIAL ENLARGEMENT [-0.15mV P-WAVE IN V1/V2] LOW QRS VOLTAGE IN EXTREMITY LEADS [QRS DEFLECTION < 0.5 mV IN LIMB LEADS] POSSIBLE INFERIOR MYOCARDIAL INFARCTION , PROBABLY OLD [30 ms Q WAVE IN II/aVF] Compared to ECG 08/02/2024 00:16:30 Ventricular premature complex(es) now present Low QRS voltage now present Myocardial infarct finding now present Sinus rhythm no longer present T-wave abnormality no longer present /store/S0/[id number]/ecg/[id number].pdf
--- NOTE | 2024-09-12 04:11 | XR_ITS ---
Examination: AP chest single view TECHNIQUE: AP portable upright chest single view Date and time: September 12, 2024 0426 hours Comparison August 25, 2024 INDICATIONS: Shortness of breath today. FINDINGS: Mild CHF Mild to moderate enlargement cardiac contour. Prominent vascular congestion with perihilar basilar edema. Cardiac leads satisfactory position. IMPRESSION: Mild CHF
[2024-09-12 04:23] LABS: Basophils # (Auto) 0.1 Thou/mm3 (0.0-0.2); Basophils % (Auto) 1 % (0-2.5); Eosinophils # (Auto) 0.1 Thou/mm3 (0.0-0.5); Eosinophils % (Auto) 1 % (0-10); Hematocrit 43.4 % (41.0-53.0); Hemoglobin 15.3 g/dL (13.5-16.0); Immature Granulocytes % (Auto) 1 % (0-0); Immature Granulocytes Auto 0.07 Thou/mm3 (0.00-0.00); Lymphocytes # (Auto) 1.8 Thou/mm3 (1.0-4.8); Lymphocytes % (Auto) 15 % (10-50); Mean Corpuscular HGB Conc 35.3 g/dl (31.0-37.0); Mean Corpuscular Hemoglobin 29.5 pg (25.0-35.0); Mean Corpuscular Volume 84 fL (80-100); Monocytes # (Auto) 1.1 Thou/mm3 (0.0-0.8); Monocytes % (Auto) 9 % (0-12); Neutrophils # (Auto) 9.2 Thou/mm3 (1.8-7.7); Neutrophils % (Auto) 74 % (37-80); Nucleated Red Blood Cell # 0.05 Thou/mm3 (0.00-0.00); Nucleated Red Blood Cell % 0 /100 WBC (0); Platelet Count 214 Thou/mm3 (140-440); RDW Standard Deviation 43.7 fL (35.1-43.9); Red Blood Count 5.19 Miln/mm3 (4.50-5.90); White Blood Count 12.4 Thou/mm3 (3.8-10.6)
[2024-09-12 04:36] LABS: Base Excess 6 (-3-3); HCO3 28 mEq/L (20-26); Inspired Oxygen, FIO2 21 %; O2 Saturation 94 % (91-98); PCO2 32 mmHg (32.0-48.0); PO2 63 mmHg (83-108); pH, Arterial 7.55 (7.35-7.45)
[2024-09-12 04:36] LABS: D-Dimer 1070 ng/mL (<600)
[2024-09-12 04:37] LABS: Allen Test Performed/OK; Puncture Site Right Radial
--- NOTE | 2024-09-12 05:06 | XR_ITS ---
Examination: CTA chest with intravenous contrast 2-D reconstructions 3-D reconstructions, vascular Date and time of exam: September 12, 2024 0752 hours INDICATIONS: Onset chest pain and shortness of breath today CTDI: vol (mGy) 31.43 DLP: (mGycm) 456.5 Technique: Multiple axial sections of the thorax have been obtained. 3 mm slice thickness, from below the hemidiaphragms to above the apices of the lungs. Mediastinal and lung density settings have been obtained. 2-D sagittal and coronal reconstructions. 3-D angiographic renderings, 3-D volume renderings, 3D post processing, vascular maximum intensity projections obtained. Contrast administered is 100 cc Isovue-370. Low dose protocols were performed. One or more of the following dose reduction techniques were used; automated exposure control, adjustment of the mA and/or KV according to patient size, use of iterative reconstruction technique. Findings: No thoracic aortic aneurysmal dilatation No pulmonary artery filling defects Mild enlargement cardiac contour with prominent vascular congestion No lobar pneumonia Liver is irregular in contour Spleen is not enlarged Kidneys partially visualized no hydronephrosis IMPRESSION: Mild heart failure, negative for pulmonary artery emboli
--- NOTE | 2024-09-12 05:07 | XR_ITS ---
Examination: CT abdomen with intravenous contrast CT pelvis with intravenous contrast 2-D coronal reconstructions 2-D sagittal reconstructions Date and time of exam:September 12, 2024 0752 hours Comparison April 05, 2015 INDICATIONS: Left-sided flank pain today. CTDI: vol (mGy) 10.2 DLP: (mGycm) 710 Technique: Multiple axial sections of the abdomen and pelvis have been obtained. 64 slice high-resolution scanner used. 3 mm axial sections have been obtained, post intravenous injection 100 cc Isovue 370 2-D sagittal, coronal reconstructions obtained. Low dose protocols were performed. One or more of the following dose reduction techniques were used; automated exposure control, adjustment of the mA and/or KV according to patient size, use of iterative reconstruction technique. Findings: Liver is irregular in contour with fatty infiltration, no focal liver lesions Gallbladder wall appears thickened Spleen is not enlarged No pancreatic or adrenal mass No renal or ureteral calculi No hydronephrosis No bowel obstruction. Mild ascites No pericecal inflammatory changes urinary bladder is intact No prostatomegaly IMPRESSION: Cirrhosis Mild ascites Recommend hepatobiliary sonography follow-up to exclude cholecystitis No renal or ureteral calculi
[2024-09-12] MEDS: MORPHINE SULF INJ 10 MG/ML VIAL 2 MG IVP (05:20)
[2024-09-12] MEDS: FUROSEMIDE INJ 10 MG/ML 4ML VIAL 80 MG IVP (05:21)
[2024-09-12] MEDS: NITROGLYCERIN OINT 2% 1 INCH PACKET TOP (05:21)
[2024-09-12 05:24] LABS: B-Type Natriuretic Peptide 1500 pg/mL (0-100)
[2024-09-12 05:32] LABS: Alanine Aminotransferase 64 U/L (10-49); Albumin, Serum 3.9 gm/dL (3.5-5.0); Albumin/Globulin Ratio 1.6 (1.2-2.2); Alkaline Phosphatase 135 U/L (46-116); Anion Gap 9 (7-16); Aspartate Amino Transferase 67 U/L (0-34); BUN/Creatinine Ratio 18 Ratio (12-20); Bilirubin,Direct 0.4 mg/dL (0.0-0.3); Bilirubin,Total 3.3 mg/dL (0.3-1.2); Blood Urea Nitrogen 28 mg/dL (9-23); Calcium 8.9 mg/dL (8.3-10.6); Carbon Dioxide 31.9 mMol/L (20.0-31.0); Chloride 96 mMol/L (98-107); Creatinine (Component) 1.6 mg/dL (0.6-1.3); Estimated Creatinine Clearance 77.4 mL/min (>60); Globulin 2.5 gm/dL (2.3-3.5); Glucose 154 mg/dL (74-106); Magnesium 1.8 mg/dL (1.6-2.6); Osmolality,Calculated 282 (275-295); Sodium 137 mMol/L (136-145); Thyroid Stimulating Hormone 3.75 uIU/mL (0.55-4.78); Total Protein 6.4 gm/dL (5.7-8.2); eGFR 54 See Note
[2024-09-12 06:07] LABS: Collection Type, Urine Clean Catch
[2024-09-12 06:18] LABS: Troponin I 0.117 ng/mL (0.0-0.045)
[2024-09-12 06:41] LABS: Bilirubin,Urine Negative (Negative); Blood,Urine Negative (Negative); Clarity,Urine Clear (Clear/Hazy); Color,Urine Lt-Yellow (Lt Yel-Yel); Culture Indicated,Urine Not Indicated; Glucose, Urine Negative (Negative); Ketones,Urine Negative (Negative); Leukocyte Esterase,Urine Negative (Negative); Nitrite,Urine Negative (Negative); Protein,Urine 1+ (Neg - Trace); RBC,Urine 3 /hpf (0-3); Specific Gravity,Urine 1.011 (1.001-1.035); Squamous Epithelial Cell,Urine 3 /hpf (0-5); Urobilinogen,Urine Negative mg/dL (0.0-1.0); WBC,Urine 10 /hpf (0-5)
--- NOTE | 2024-09-12 07:31 | EDNOTE_ITS ---
Emergency Room Addendum Addendum Narrative: 0600: Care assumed from Dr. Frazier (emergency physician). Past medical, surgical, social and family history reviewed. Vitals and home medications reviewed. Results and treatment plan discussed. I will assume the care of the patient at this time and will follow the patient, pending chest CT, CT of abdomen, and labs. 1046: Patient was reevaluated and reported mild upper left quadrant pain in the abdomen, constipation since 09/11/2024. Patient also stated history of ga llstones. Physical Exam: GENERAL APPEARANCE: alert and oriented x 4, well-developed, well-nourished, no acute distress HEENT: Normocephalic, atraumatic; pupils equal, round, reactive to light; EOMI; mucous membranes pink, moist; oropharynx clear NECK: Supple LUNGS: CTABL; no wheezes, no rales, no rhonchi HEART: Regular rate, regular rhythm; normal S1, S2; no murmurs ABDOMEN: non distended; normal BS; soft, mild epigastric tenderness, mild upper right quadrant guarding, no rebound; no masses, no organomegaly, no hernia BACK: no CVA tenderness EXTREMITIES: atraumatic; no edema NEUROLOGIC: awake; alert and oriented x4; cranial nerves II-XII grossly intact; no focal sensory or motor deficits PSYCHIATRIC: appropriate mood and affect SKIN: warm, dry, normal color; no rashes 1050: Dr. Howard, Surgery, made aware of the patient?s HPI, PMHx, lab and/or radiology results. Will evaluate patient in ED. 1137: Dr. Howard evaluated patient. Patient does not meet criteria for admission. Recommended home self-care. Patient is stable and will be discharged. Patient left ED before signing discharge papers. DIAGNOSIS: SOB, CHF, abdominal pain RADIOLOGY: Ordering Physician: Golden Frazier MD Date of Service: 09/12/24 Procedure(s): CT angio chest Accession Number(s): [id number] cc: Golden Frazier MD; Tramaine Hollis MD; NO PRIMARY/FAMILY,PHYSICIAN~ Examination: CTA chest with intravenous contrast 2-D reconstructions 3-D reconstructions, vascular Date and time of exam: September 12, 2024 0752 hours INDICATIONS: Onset chest pain and shortness of breath today CTDI: vol (mGy) 31.43 DLP: (mGycm) 456.5 Technique: Multiple axial sections of the thorax have been obtained. 3 mm slice thickness, from below the hemidiaphragms to above the apices of the lungs. Mediastinal and lung density settings have been obtained. 2-D sagittal and coronal reconstructions. 3-D angiographic renderings, 3-D volume renderings, 3D post processing, vascular maximum intensity projections obtained. Contrast administered is 100 cc Isovue-370. Low dose protocols were performed. One or more of the following dose reduction techniques were used; automated exposure control, adjustment of the mA and/or KV according to patient size, use of iterative reconstruction technique. Findings: No thoracic aortic aneurysmal dilatation No pulmonary artery filling defects Mild enlargement cardiac contour with prominent vascular congestion No lobar pneumonia Liver is irregular in contour Spleen is not enlarged Kidneys partially visualized no hydronephrosis IMPRESSION: Mild heart failure, negative for pulmonary artery emboli Dictated By: Tramaine Hollis MD Signed By: <Electronically signed by Tramaine Hollis MD in OV> 09/12/24 0825 Ordering Physician: Golden Frazier MD Date of Service: 09/12/24 Procedure(s): CT abdomen pelvis w con Accession Number(s): [id number] cc: Golden Frazier MD; Tramaine Hollis MD; NO PRIMARY/FAMILY,PHYSICIAN~ Examination: CT abdomen with intravenous contrast CT pelvis with intravenous contrast 2-D coronal reconstructions 2-D sagittal reconstructions Date and time of exam:September 12, 2024 0752 hours Comparison April 05, 2015 INDICATIONS: Left-sided flank pain today. CTDI: vol (mGy) 10.2 DLP: (mGycm) 710 Technique: Multiple axial sections of the abdomen and pelvis have been obtained. 64 slice high-resolution scanner used. 3 mm axial sections have been obtained, post intravenous injection 100 cc Isovue 370 2-D sagittal, coronal reconstructions obtained. Low dose protocols were performed. One or more of the following dose reduction techniques were used; automated exposure control, adjustment of the mA and/or KV according to patient size, use of iterative reconstruction technique. Findings: Liver is irregular in contour with fatty infiltration, no focal liver lesions Gallbladder wall appears thickened Spleen is not enlarged No pancreatic or adrenal mass No renal or ureteral calculi No hydronephrosis No bowel obstruction. Mild ascites No pericecal inflammatory changes urinary bladder is intact No prostatomegaly IMPRESSION: Cirrhosis Mild ascites Recommend hepatobiliary sonography follow-up to exclude cholecystitis No renal or ureteral calculi Dictated By: Tramaine Hollis MD Signed By: <Electronically signed by Tramaine Hollis MD in OV> 09/12/24 0827 Ordering Physician: Radha Edwards MD Date of Service: 09/12/24 Procedure(s): US abdomen limited Accession Number(s): [id number] cc: Tramaine Hollis MD; NO PRIMARY/FAMILY,PHYSICIAN; Radha Edwards MD~ Examination: Abdomen sonogram, Limited Date and time of exam: September 13, 2019 5032 hours INDICATIONS: Right upper abdominal pain beginning 3 days ago Technique: Real-time jon scale transabdominal sonographic images of the upper abdomen obtained. Findings: Negative for gallstones Gallbladder wall 0.8 cm with edema Common bile duct 0.3 cm Pancreatic head 2.7 cm Liver 17 cm fatty infiltration irregular contour, pleura quite mass in the right lobe of the liver 3.1 x 1.9 cm Normal hepatopedal portal venous flow Patent IVC IMPRESSION: Acute cholecystitis, consider MRCP follow-up for confirmation and to further assess liver lesion Dictated By: Tramaine Hollis MD Signed By: <Electronically signed by Tramaine Hollis MD in OV> 09/12/24 1011 ======= Ordering Physician: Golden Frazier MD Date of Service: 09/12/24 Procedure(s): XR chest 1V portable Accession Number(s): [id number] cc: Golden Frazier MD; Tramaine Hollis MD; NO PRIMARY/FAMILY,PHYSICIAN~ Examination: AP chest single view TECHNIQUE: AP portable upright chest single view Date and time: September 12, 2024 0426 hours Comparison August 25, 2024 INDICATIONS: Shortness of breath today. FINDINGS: Mild CHF Mild to moderate enlargement cardiac contour. Prominent vascular congestion with perihilar basilar edema. Cardiac leads satisfactory position. IMPRESSION: Mild CHF Dictated By: Tramaine Hollis MD Signed By: <Electronically signed by Tramaine Hollis MD in OV> 09/12/24 0748 =
--- NOTE | 2024-09-12 08:36 | XR_ITS ---
Examination: Abdomen sonogram, Limited Date and time of exam: September 13, 2019 5032 hours INDICATIONS: Right upper abdominal pain beginning 3 days ago Technique: Real-time jon scale transabdominal sonographic images of the upper abdomen obtained. Findings: Negative for gallstones Gallbladder wall 0.8 cm with edema Common bile duct 0.3 cm Pancreatic head 2.7 cm Liver 17 cm fatty infiltration irregular contour, pleura quite mass in the right lobe of the liver 3.1 x 1.9 cm Normal hepatopedal portal venous flow Patent IVC IMPRESSION: Acute cholecystitis, consider MRCP follow-up for confirmation and to further assess liver lesion
--- NOTE | 2024-09-12 08:48 | PC.NURSE ---
Patient was assessed. Currently pt denies any SOB, CXP or any distress at this time. Lung sounds are coarse, pt has a cough but not productive. He has diuersed 1800ml of urine after lasix was administred this am. Pt is GCS 15, no skin issues noted. IV lock 20G on right AC. Call light within reach, warm blanket was provided.
--- NOTE | 2024-09-12 11:43 | PD.SURCONS ---
HPI Consult details Consult date: 09/12/24 Reason for consultation narrative: Patient was seen in consultation because of abnormality on the gallbladder ultrasound History of present illness: Patient gives history of lower abdominal pain and difficulty in breathing. She patient has had breathing medications apparently does not work. She never had any nausea or vomiting Past Medical History Past Medical History NEUROLOGIC: Negative Neurological Disorders, Cerebrovascular Accident, Transient Ischemic Attacks (TIA), Dementia, Alzheimer's Disease, Parkinson's Disease, Brain Tumor, Meningitis, Seizures, Epilepsy, Multiple Sclerosis, Cerebral Palsy, Amyotrophic Lateral Sclerosis (ALS/Antonietta Gehrig's), Guillain-[place] Syndrome, Spina Bifida, Paralysis, Peripheral Neuropathy, Blanc's Palsy, Subdural Hematoma, Migraine, Head Trauma, Spinal Cord Injury or Traumatic Brain Injury CARDIAC: Positive Cardiac Disorders (CHF, Hypertension), Congestive Heart Failure, Edema and Hypertension; Negative Myocardial Infarction, Cardiac Arrhythmia, Atrial Fibrillation, Angina, Heart Murmur, Coronary Artery Disease, Atherosclerotic Heart Disease, Peripheral Vascular Disease, Hypercholesterolemia, Aneurysm, Congenital Heart Disease, Valvular Heart Disease, Rheumatic Fever, Cardiomyopathy, Pericarditis, Cellulitis, Deep Vein Thrombosis, Hypotension or Varicose Veins RESPIRATORY: Positive Chronic Obstructive Pulmonary Disease (COPD), Asthma (CHF SOB) and Pneumonia; Negative Bronchitis, Emphysema, Cystic Fibrosis, Pulmonary Embolism or Pulmonary Edema GASTROINTESTINAL: Positive Obesity; Negative Gastrointestinal Disorders, Hepatitis, Cirrhosis, Pancreatitis, Celiac Disease, Gall Bladder Disease, Gastrointestinal Bleed, Esophageal Varices, Stewart's Esophagus, Colitis, Ulcerative Colitis, Diverticulitis, Diverticulosis, Ulcer, Colorectal Cancer, Irritable Bowel, Crohn's Disease, Obstructive Bowel, Hiatal Hernia, Hemorrhoids or Gastroesophageal Reflux Disease GENITOURINARY: Positive Genitourinary Disorders, Renal Disease and Kidney Stones; Negative Polycystic Kidney Disease, Neurogenic Bladder, Prostate Cancer or Benign Prostatic Hyperplasia REPRODUCTIVE: Negative Breast Cancer, Genital Herpes, Gonorrhea, Syphilis or Testicular Cancer MUSCULOSKELETAL: Positive Musculoskeletal Disorders; Negative Muscular Dystrophy, Myasthenia Gravis, Marfan's Syndrome, Bone Cancer, Arthritis, Rheumatoid Arthritis, Osteoporosis, Degenerative Disk Disease, Gout, Scoliosis, Carpal Tunnel Syndrome, Fibromyalgia, Fractures, Degenerative Joint Disease, Osteomyelitis or Poliovirus ENT: Negative Cataracts, Glaucoma, Blind, Retinal Detachment, Macular Degeneration, Ear Infection, Deafness, Head Trauma or Eye Prosthesis ENDOCRINE: Positive Endocrine Disorders and Diabetes Mellitus Type 2 (pt does not know diabetic medication); Negative Diabetes Mellitus Type 1, Hypoglycemia, Hyperthyroidism, Hypothyroidism, Parathyroid Disease, Pituitary Disease, Systemic Lupus Erythematosus, Syndrome of Inappropriate Antidiuretic Hormone (SIADH) or Graves' Disease HEMATOLOGIC: Negative Blood Disorders, Anemia, Leukemia, Hemophilia, Thalassemia, Sickle Cell Disease or Clotting Problems PSYCHO/SOCIAL: Negative Psychiatric Problems, Schizophrenia, Recreational Drug Use, Bipolar Disorder, Depression, Anxiety, Behavior Problems, Self-Mutilation, Attention Deficit Disorder, Attention Deficit Hyperactivity Disorder, Depression, Post Traumatic Stress Disorder or Eating Disorder OTHER HISTORY: Positive Hospitalization; Negative Autoimmune Disease, Down Syndrome, Autism, Developmental Delay, Falls, Blood Transfusions, Blood Transfusion Reaction, Anesthesia Reactions, Organ Transplant, Chemotherapy, Radiation Therapy, Hyperbaric Therapy, MRSA, VRSA, Vancomycin-Resistant Enterococci, Human Immunodeficiency Virus (HIV), Chicken Pox, Measles, Mumps, Rubella ([place] Measles), Pertussis, Clostridium Difficile, Cancer, Breast Cancer, Colorectal Cancer, Lung Cancer, Prostate Cancer or Testicular Cancer Family History FAMILY HISTORY: Positive Family Cardiac Disorders; Negative Family Psychiatric Problems, Family Respiratory Disorders, Family Gastrointestinal Problems, Family Cancer, Family Surgery or Family Anesthesia Reaction Surgical History SURGICAL: Positive Cardiac Surgery and Pacemaker; Negative Open Heart Surgery, Coronary Artery Bypass Graft, Valve Replacement, Vascular Surgery, Coronary Stent, Cardiac Catheterization, Angiogram, Auto Implanted Cardiovert Defib, Carotid Endarterectomy, Endocrine Surgery, Thyroidectomy, Ear Surgery, Tympanostomy Tube, Eye Surgery, Nose Surgery, Oral Surgery, Tonsillectomy, Adenoidectomy, Cochlear Implant, Corneal Transplant, Throat Surgery, Abdominal Surgery, Tracheostomy, Gastric Bypass Surgery, Gastrostomy, Bowel Surgery, Nephrectomy, Transurethral Resection, Joint Replacement, Amputation, Open Reduction Internal Fixation, Arthroscopy, Neurologic Surgery, Brain Shunt, Vasectomy or Organ Transplant Social History SMOKING STATUS: Former smoker SECOND HAND EXPOSURE: No SUBSTANCE USE: methamphetamine Meds Home Medications and Allergies Home Medications ?Medication ?Instructions ?Recorded ?Confirmed ?Type aspirin 81 mg tablet,delayed 81 mg PO QDAY 09/08/21 08/02/24 History release carvedilol 12.5 mg tablet 1 tab PO BID 09/08/21 08/02/24 History clopidogrel 75 mg tablet 1 tab PO QDAY 09/08/21 08/02/24 History furosemide 20 mg tablet 20 mg PO QDAY 09/08/21 08/02/24 History losartan 100 mg tablet 1 tab PO QDAY 09/08/21 08/02/24 History spironolactone 25 mg tablet 1 tab PO QDAY 09/08/21 08/02/24 History atorvastatin 80 mg tablet 1 tab PO HS 09/19/21 08/02/24 History furosemide 40 mg tablet 40 mg PO BID 08/02/24 08/02/24 History ibuprofen 200 mg capsule 400 mg PO DAILY PRN For tooth pain 08/02/24 08/02/24 History Allergies Allergy/AdvReac Type Severity Reaction Status Date / Time No Known Allergies Allergy Verified 05/18/22 11:36 Exam Vital Signs Temp Pulse Resp BP Pulse Ox O2 Del Method O2 Flow Rate 98.0 F 89 28 H 170/122 H 96 Room Air 4 09/12/24 10:04 09/12/24 10:09/12/24 10:09/12/24 10:09/12/24 10:09/12/24 10:09/12/24 06:00 Narrative Exam Physical examination revealed a slightly obese white male who is 6 feet tall weighing 250 pounds. His vital signs are normal other than elevated blood pressure which is 170/122 Routine Abdominal Exam Comments: Abdominal examination showed no tenderness in the right upper quadrant but mild tenderness over the left lower quadrant Results Results: Laboratory Laboratory Narrative: Laboratory results show mild elevation of the WBC to 12,000. Liver enzymes are slightly elevated and so his bilirubin Results: Imaging Imaging narrative: Ultrasound shows edema of the gallbladder but no stones Assessment & Plan Additional Assessment Additional comments: Impression: Lower abdominal pain nausea, nonspecific Plan Plan: There is no connection between the ultrasound findings and patient's complaints. Patient does not seem to have any biliary disease and there is no further workup needed for the gallbladder. Acalculous cholecystitis very rare and she has mild elevation of the liver enzymes can be explained by other conditions rather than biliary disease. I will discharge the patient and advise follow-up with his family physician
== END 2024-09-12 12:21 | disposition home or self-care (01) ==
PROVIDERS: Emergency Medicine; Emergency Provider Emergency Medicine
DX: R06.02 Shortness of breath (principal); E11.9 Type 2 diabetes mellitus without complications; I50.9 Heart failure, unspecified; J44.9 Chronic obstructive pulmonary disease, unspecified
CPT/HCPCS: 36415; 36600; 71045; 71275; 74177; 76705; 80053; 81001; 82248; 82803; 83735; 83880; 84439; 84443; 84484; 85025; 85379; 87400; 87811; 93005; 96374; 96375; 99285; A4649; J1938; J2270; Q9967; A9270

== ENCOUNTER 2024-09-14 07:55 | Emergency (ER) | payer MEDICAID, SELFPAY ==
[2024-09-14 07:57] VITALS: BMI 33.9
[2024-09-14 08:07] VITALS: BP 149/112; PULSE 106; RESP 18; TEMP 37.1; O2SAT 95; BMI 33.9
--- NOTE | 2024-09-14 08:11 | XR_ITS ---
Examination: PA lateral chest 2 views TECHNIQUE: Upright PA lateral chest 2 views Date and time: September 14, 2024 0840 hours Comparison September 12, 2024 INDICATIONS: Shortness of breath today. FINDINGS: Mild to moderate CHF Mild to moderate enlargement cardiac contour. Prominent vascular congestion with perihilar basilar edema Cardiac leads stable position compared with September 12, 2024 IMPRESSION: Mild to moderate CHF
--- NOTE | 2024-09-14 08:11 | XR_ITS ---
Examination: Abdomen sonogram, Limited Date and time of exam: September 14, 2024 0904 hours INDICATIONS: Right upper abdominal pain beginning 7 days ago Technique: Real-time jon scale transabdominal sonographic images of the upper abdomen obtained. Findings: Normal gallbladder Normal common bile duct 0.3 cm Pancreatic head 3.3 cm Liver 18.5 cm irregular contour no focal liver lesions Normal hepatopedal portal venous flow Patent IVC IMPRESSION: Normal gallbladder Hepatomegaly, primary hepatocellular disease
--- NOTE | 2024-09-14 08:11 | EKG_ITS ---
[facility] Test Date: 2024-09-14 Pat Name: AMY TRACY Department: Room: - Gender: Male [employer]print [employer]er: : 1980 Requested By: Duncan Cope (SUSANA) Order Number: [id number] Reading MD: Duncan Cope (SUSANA) Measurements Intervals [place] Rate: 111 P: 64 MI: 156 QRS: 68 QRSD: 125 T: 14 QT: 342 QTc: 467 Interpretive Statements SINUS TACHYCARDIA WITH OCCASIONAL SUPRAVENTRICULAR PREMATURE COMPLEXES LEFT ATRIAL ENLARGEMENT [-0.15mV P-WAVE IN V1/V2] POSSIBLE INFERIOR MYOCARDIAL INFARCTION , OF INDETERMINATE AGE [30 ms Q WAVE IN II/aVF] Compared to ECG 09/12/2024 04:18:14 Ventricular premature complex(es) no longer present Myocardial infarct finding still present /store/S0/[id number]/ecg/[id number].pdf
--- NOTE | 2024-09-14 08:11 | PD.EDRME ---
Rapid Medical Screening Exam RME Arrival date/time: 09/14/24 07:55 44-year-old male presents the emergency room today for complaints of abdominal pain and shortness of breath Chief Complaint: Shortness of Breath/Dyspnea Vital signs: Vital Signs Temperature 98.8 F 09/14/24 08:07 Pulse Rate 106 H 09/14/24 08:07 Respiratory Rate 18 09/14/24 08:07 Blood Pressure 149/112 H 09/14/24 08:07 Pulse Oximetry (%) 95 09/14/24 08:07 Oxygen Delivery Method Room Air 09/14/24 08:07
[2024-09-14 09:15] LABS: Basophils # (Auto) 0.1 Thou/mm3 (0.0-0.2); Basophils % (Auto) 1 % (0-2.5); Eosinophils # (Auto) 0.1 Thou/mm3 (0.0-0.5); Eosinophils % (Auto) 1 % (0-10); Hematocrit 44.7 % (41.0-53.0); Hemoglobin 15.3 g/dL (13.5-16.0); Immature Granulocytes % (Auto) 1 % (0-0); Immature Granulocytes Auto 0.06 Thou/mm3 (0.00-0.00); Lymphocytes # (Auto) 1.4 Thou/mm3 (1.0-4.8); Lymphocytes % (Auto) 11 % (10-50); Mean Corpuscular HGB Conc 34.2 g/dl (31.0-37.0); Mean Corpuscular Hemoglobin 29.1 pg (25.0-35.0); Mean Corpuscular Volume 85 fL (80-100); Monocytes % (Auto) 8 % (0-12); Neutrophils # (Auto) 9.8 Thou/mm3 (1.8-7.7); Neutrophils % (Auto) 79 % (37-80); Nucleated Red Blood Cell % 0 /100 WBC (0); Platelet Count 218 Thou/mm3 (140-440); RDW Standard Deviation 45.4 fL (35.1-43.9); Red Blood Count 5.25 Miln/mm3 (4.50-5.90); White Blood Count 12.4 Thou/mm3 (3.8-10.6)
[2024-09-14 09:31] LABS: INR 1.2 (0.9-1.3); Partial Thromboplastin Time 25.5 Seconds (22.0-36.0); Prothrombin Time 12.5 Seconds (9.0-12.2)
[2024-09-14 09:33] LABS: B-Type Natriuretic Peptide 1974 pg/mL (0-100)
[2024-09-14 09:43] LABS: Alanine Aminotransferase 58 U/L (10-49); Albumin/Globulin Ratio 1.5 (1.2-2.2); Alkaline Phosphatase 146 U/L (46-116); Anion Gap 8 (7-16); Aspartate Amino Transferase 37 U/L (0-34); BUN/Creatinine Ratio 16 Ratio (12-20); Bilirubin,Total 2.3 mg/dL (0.3-1.2); Blood Urea Nitrogen 23 mg/dL (9-23); Calcium 9.1 mg/dL (8.3-10.6); Calcium (Corrected) 9.1 mg/dL (8.5-10.1); Carbon Dioxide 29.7 mMol/L (20.0-31.0); Chloride 99 mMol/L (98-107); Creatinine (Component) 1.4 mg/dL (0.6-1.3); Estimated Creatinine Clearance 88.5 mL/min (>60); Globulin 2.7 gm/dL (2.3-3.5); Glucose 262 mg/dL (74-106); Lipase 39 U/L (12-53); Magnesium 1.9 mg/dL (1.6-2.6); Osmolality,Calculated 286 (275-295); Potassium 4.1 mMol/L (3.4-5.1); Sodium 137 mMol/L (136-145); Total Protein 6.7 gm/dL (5.7-8.2); eGFR > 60 See Note
[2024-09-14 09:44] LABS: Troponin I 0.153 ng/mL (0.0-0.045)
--- NOTE | 2024-09-14 12:14 | EDNOTE_ITS ---
<Statement entered by Radha Edwards MD - 09/25/24 06:19> As co-signing physician, I was present and available for consult prn. I concur with the plan and care as documented by the midlevel provider. ED SOB =RME/HPI General Chief Complaint: Shortness of Breath/Dyspnea Stated Complaint: SOB SEEN YESTERDAY IN ED Time Seen by Provider: 09/14/24 11:52 Arrival date/time: 09/14/24 07:55 RME / HPI RME / HPI Narrative: 09/14/24 07:55 44-year-old male presents the emergency room today for complaints of abdominal pain and shortness of breath 44-year-old male patient with significant history of methamphetamine abuse, congestive heart failure, hypertension, chronic elevation of troponin, came in for evaluation regarding shortness of breath. Patient has been having worsening shortness of breath for the last 1 to 2 weeks, was admitted in the [facility], last week stated for 4 days and medication was increased including Lasix and Coreg. Patient came here yesterday for the same complaint including abdominal pain. Was seen and evaluated by general surgeon regarding elevated LFTs and abdominal pain. Patient underwent CT angiogram of the chest came back with mild congestive heart failure no pulmonary embolism. Patient came in again because of complaints of persistent shortness of breath, and constipation. Last bowel movement was 7 days ago. Denies any fever. Denies any cough. Denies any swelling to the bilateral lower extremity. Related Data Home Medications ?Medication ?Instructions ?Recorded ?Confirmed aspirin 81 mg tablet,delayed 81 mg PO QDAY 09/08/21 release carvedilol 12.5 mg tablet 1 tab PO BID 09/08/21 clopidogrel 75 mg tablet 1 tab PO QDAY 09/08/2108/02 furosemide 20 mg tablet 20 mg PO QDAY 09/08/2108/02 losartan 100 mg tablet 1 tab PO QDAY 09/08/2108/02 spironolactone 25 mg tablet 1 tab PO QDAY 09/08/2107/24 atorvastatin 80 mg tablet 1 tab PO HS 09/19/21 5 furosemide 40 mg tablet 40 mg PO BID 08/02/24 ibuprofen 200 mg capsule 400 mg PO DAILY PRN For toot h pain 08/02/24 08/02/24 Previous Rx's ?Medication ?Instructions ?Recorded lactulose 10 gram/15 mL oral 20 g (30 mL) PO BID PRN 0 09/14/24 solution (Constulose) constipation #300 mL Allergies Allergy/AdvReac Type Severity Reaction Status Date / Time No Known Allergies Allergy Verified 09/14/24 07:57 Review of Systems Review of Systems Narrative Review of Systems: Review of system reviewed and within normal limits except mentioned in HPI ED Exam Narrative Physical exam: VITAL SIGNS: Reviewed. GENERAL APPEARANCE: Alert and interactive, follows commands, no acute distress, HEAD AND FACE: Non-traumatic. ENT: PERRL, pink conjunctivitis, eyelid no trauma, Mucous membrane moist. NECK: Supple, nontender, no nuchal rigidity. CHEST: No tenderness, no crepitus, no paradoxical movement, no retractions. LUNGS: Clear, well ventilated, symmetric, no rales, no wheezing, no ronchi, no stridor, good breath sounds bilaterally. Positive pacemaker the left HEART: Regular rate, regular rhythm, no murmur, no gallops. ABDOMEN: Soft, positive bowel sounds, nondistended, no guarding, nontender, no rebound, no masses, RECTAL: Deferred. GENITAL: Deferred. NEUROLOGICAL: Gross motor function intact sensory function intact, Appropriate for age. MUSCULOSKELETAL: low back nontender, full range of motion. EXTREMITIES: Nontender, full range of motion. No lower extremity edema SKIN: Color pink, dry, no rash, no lacerations, no abrasions, no contusions. LYMPHATICS: Deferred. Course Quality Measures none Orders Category Date Time Status EKG (ED ONLY) *Do not use* NOW Care 09/14/24 08:11 Completed Fleet [Enema Administration] ONCE Care 09/14/24 12:13 Active EKG (ED Only) Stat Exams 09/14/24 08:11 Draft US gall bladder Stat Exams 09/14/24 08:11 Completed XR chest 2V Stat Exams 09/14/24 08:11 Completed B-Type Natriuretic Peptide Stat Lab 09/14/24 09:00 Completed CBC Stat Lab 09/14/24 09:00 Completed Comprehensive Metabolic Panel Stat Lab 09/14/24 09:00 Completed Drug Screen,Urine Stat Lab 09/14/24 08:11 Ordered Lipase Stat Lab 09/14/24 09:00 Completed Magnesium Stat Lab 09/14/24 09:00 Completed Partial Thromboplastin Time Stat Lab 09/14/24 09:00 Completed Prothrombin Time with INR Stat Lab 09/14/24 09:00 Completed Troponin I Stat Lab 09/14/24 09:00 Completed Urinalysis Stat Lab 09/14/24 08:11 Ordered Furosemide [Lasix] Med 09/14/24 12:13 Discontinued 80 mg PO X1 ONE Magnesium Citrate Liqd [Citrate of Magnesia Liqd] Med 09/14/24 12:13 Discontinued 300 ml PO X1 ONE Vital Signs Vital signs: Vital Signs Temperature 98.8 F 09/14/24 08:07 Pulse Rate 106 H 09/14/24 08:07 Respiratory Rate 18 09/14/24 08:07 Blood Pressure 149/112 H 09/14/24 08:07 Pulse Oximetry (%) 95 09/14/24 08:07 Oxygen Delivery Method Room Air 09/14/24 08:07 Shortness of Breath / Dyspnea MDM Narrative MDM Narrative:: 44-year-old male patient with significant history of methamphetamine abuse, congestive heart failure, hypertension, chronic elevation of troponin, came in for evaluation regarding shortness of breath. Patient has been having worsening shortness of breath for the last 1 to 2 weeks, was admitted in [facility], last week stayed for 4 days and medication was increased including Lasix and Coreg. Patient came here yesterday for the same complaint including abdominal pain. Was seen and evaluated by general surgeon regarding elevated LFTs and abdominal pain. Patient underwent CT angiogram of the chest came back with mild congestive heart failure no pulmonary embolism. Patient came in again because of complaints of persistent shortness of breath, and constipation. Last bowel m ovement was 7 days ago. Denies any fever. Denies any cough. Denies any swelling to the bilateral lower extremity. Patient denies any other complaints. Patient is ambulatory more than 50 feet without any break in between currently not using any oxygen, satting 95% on room air. Patient's workup today is significant for chronic elevation of troponin which is his baseline, LFTs is better than yesterday and ultrasound of the gallbladder showed no acute pathology noted. The only abnormality noted today is the BNP is slightly elevated to 1974 yesterday it was 1500. Creatinine is improving 1.4 today. BUN is normal. Patient was given mag citrate, Fleet enema, and a dose of Lasix in the emergency room with significant improvement of symptoms. Patient appears nontoxic and hemodynamically stable. Patient discharged home and instructed to follow-up with primary care provider in 24 to 48 hours. Instructed to return to the emergency department immediately if worsening of symptoms Patient data External records reviewed:: None Clinical information provided by:: patient Social determinants that could affect healthcare access:: substance use Patient has the following chronic illnesses:: Tension congestive heart failure methamphetamine abuse How is presenting disease/condition affected by chronic disease/condition?: caused by Evaluation data The following diagnostics were reviewed and interpreted by me:: lab results, radiology exam(s) and EKG tracing(s) Lab and/or radiology exams considered but not ordered:: None Interpretation Summary: EKG as interpreted by me showed sinus tachycardia, ventricular rate of 111 bpm, no ST segment elevation depression noted. Chest x-ray showed mild to moderate congestive heart failure no pneumonia noted The rest of the laboratory workup see MDM Medications / Prescriptions Medications or Prescriptions considered but not ordered:: None Medication administrations:: Medication Administration History Discontinued Medications Furosemide (Furosemide 40 Mg Tablet) 80 mg PO X1 ONE Stop: 09/14/24 12:14 Magnesium Citrate (Magnesium Citrate 300 Ml Btl) 300 ml PO X1 ONE Stop: 09/14/24 12:14 Magnesium citrate, Fleet enema and Lasix Consultations Consultation(s) initiated? (list below): No Diagnosis Shortness of Breath Differential Diagnosis: congestive heart failure and community acquired pneumonia Most likely diagnosis given after review of the tests above:: Shortness of breath, history of congestive heart failure, constipation Admission Indicated Admission indicated?: not indicated Admission Request Was there a request for admission?: No Disposition Plan Disposition Plan: Discharge Discharge Attestation Discharge Attestation: The patient was given an opportunity to ask questions and understood the discharge instructions. Discharge instructions specifically effects, indications for sooner follow up or return to the emergency department, and the expected course of current diagnosis. Patient condition: Stable Discharge Plan Plan Patient Disposition: HOME (Self Care) Discharge Disposition comment: Stable Prescriptions/Referrals Prescriptions/Med Rec: New lactulose [Constulose] 10 gram/15 mL solution 20 g PO BID PRN (Reason: constipation) Qty: 300 0RF No Action losartan 100 mg tablet 1 tab PO QDAY Patient Comments: TAKE 1 TABLET BY MOUTH ONCE DAILY FOR 30 DAYS carvedilol 12.5 mg tablet 1 tab PO BID Patient Comments: TAKE 1 TABLET BY MOUTH TWICE DAILY WITH FOOD clopidogrel 75 mg tablet 1 tab PO QDAY Patient Comments: TAKE 1 TABLET BY MOUTH ONCE DAILY aspirin 81 mg tablet,delayed release (DR/EC) 81 mg PO QDAY Patient Comments: TAKE 1 TABLET BY MOUTH ONCE DAILY spironolactone 25 mg tablet 1 tab PO QDAY Patient Comments: TAKE 1 TABLET BY MOUTH ONCE DAILY furosemide 20 mg tablet 20 mg PO QDAY Patient Comments: TAKE 1 TABLET BY MOUTH ONCE DAILY atorvastatin 80 mg tablet 1 tab PO HS Patient Comments: TAKE 1 TABLET BY MOUTH ONCE DAILY ibuprofen 200 mg capsule 400 mg PO DAILY PRN (Reason: For tooth pain ) furosemide 40 mg tablet 40 mg PO BID Patient Comments: TAKE 1 TABLET BY MOUTH TWICE DAILY Referrals: No Primary/Family,Physician [Primary Care Provider] - In 1 week Problem List Clinical Impression: SOB (shortness of breath), Congestive heart failure, Constipation Patient/Caregiver Discharge Instructions Discharge Activity: activity as tolerated Education Materials: ED Constipation (Adult) Additional Instructions: Thank you for the opportunity for serving you today. You are stable for discharged . You are advised to: Follow-up with your PCP in 1 to 2 days Return to ED for worsening of symptoms Please stop abusing methamphetamine it will worsen your congestive heart failure Increase fiber in the diet Take your lactulose as needed for constipation Continue all your medication for your congestive heart failure and hypertension Print Language: Danish Stand Alone Forms: [employer] Award Info., Patient Portal Info Letter PA/JAIME Supervising Physician FREDY/JAIME Supervising Physician: MD Grace
[2024-09-14 12:34] VITALS: BP 142/98; PULSE 98
[2024-09-14] MEDS: MAGNESIUM CITRATE 300 ML BTL PO (12:34)
[2024-09-14] MEDS: Furosemide 40 MG TABLET 80 MG PO (12:34)
== END 2024-09-14 12:44 | disposition home or self-care (01) ==
PROVIDERS: Nurse Practitioner Primary Care; Emergency Provider Emergency Medicine
DX: I11.0 Hypertensive heart disease with heart failure (principal); I50.9 Heart failure, unspecified; K59.00 Constipation, unspecified; R00.0 Tachycardia, unspecified; R10.11 Right upper quadrant pain; I49.1 Atrial premature depolarization
CPT/HCPCS: 36415; 71046; 76705; 80053; 80307; 81001; 83690; 83735; 83880; 84484; 85025; 85610; 85730; 93005; 99284; A9270

== ENCOUNTER 2024-11-11 03:41 | Emergency (ER) | payer MEDICAID, SELFPAY ==
[2024-11-11 03:42] VITALS: BMI 32.5
[2024-11-11 03:47] VITALS: BP 126/91; PULSE 74; RESP 18; TEMP 36.6; O2SAT 98
--- NOTE | 2024-11-11 04:13 | PD.EDADULT ---
ED General RME/HPI General Chief complaint: General Adult/Misc Complain Stated complaint: LEFT WRIST PAIN Time Seen by Provider: 11/11/24 03:55 Arrival date/time: 11/11/24 03:41 RME / HPI RME / HPI narrative: 44-year-old male presents to the ED with a complaint of a flare of his gout to the left wrist. He has had pain in the left wrist for the past 3 days. He ran out of his gout medication. He was seen by his primary care physician day before yesterday but did not get a refill of his medication. He states this feels like previous gout attack of the left wrist that he had several years ago. He denies any recent illness with fever, chills, cough, upper respiratory complaints, nausea or vomiting, diarrhea or abdominal pain. Related Data Home Medications ?Medication ?Instructions ?Recorded ?Confirmed aspirin 81 mg tablet,delayed 81 mg PO QDAY 09/08/21 08/02/24 release carvedilol 12.5 mg tablet 1 tab PO BID 09/08/21 08/02/24 clopidogrel 75 mg tablet 1 tab PO QDAY 09/08/21 08/02/24 furosemide 20 mg tablet 20 mg PO QDAY 09/08/21 08/02/24 losartan 100 mg tablet 1 tab PO QDAY 09/08/21 08/02/24 spironolactone 25 mg tablet 1 tab PO QDAY 09/08/21 08/02/24 atorvastatin 80 mg tablet 1 tab PO HS 09/19/21 08/02/24 furosemide 40 mg tablet 40 mg PO BID 08/02/24 08/02/24 ibuprofen 200 mg capsule 400 mg PO DAILY PRN For tooth pain 08/02/24 08/02/24 Previous Rx's ?Medication ?Instructions ?Recorded lactulose 10 gram/15 mL oral 20 g (30 mL) PO BID PRN 09/14/24 solution (Constulose) constipation #300 mL Allergies Allergy/AdvReac Type Severity Reaction Status Date / Time No Known Allergies Allergy Verified 11/11/24 03:42 Review of Systems Review of Systems Systems Reviewed: All systems reviewed, normal except as documented Past Medical History Past Medical History NEUROLOGIC: Negative Neurological Disorders, Cerebrovascular Accident, Transient Ischemic Attacks (TIA), Dementia, Alzheimer's Disease, Parkinson's Disease, Brain Tumor, Meningitis, Seizures, Epilepsy, Multiple Sclerosis, Cerebral Palsy, Amyotrophic Lateral Sclerosis (ALS/Antonietat Gehrig's), Guillain-Marydel Syndrome, Spina Bifida, Paralysis, Peripheral Neuropathy, Blanc's Palsy, Subdural Hematoma, Migraine, Head Trauma, Spinal Cord Injury or Traumatic Brain Injury CARDIAC: Positive Cardiac Disorders (CHF, Hypertension), Congestive Heart Failure, Edema and Hypertension; Negative Myocardial Infarction, Cardiac Arrhythmia, Atrial Fibrillation, Angina, Heart Murmur, Coronary Artery Disease, Atherosclerotic Heart Disease, Peripheral Vascular Disease, Hypercholesterolemia, Aneurysm, Congenital Heart Disease, Valvular Heart Disease, Rheumatic Fever, Cardiomyopathy, Pericarditis, Cellulitis, Deep Vein Thrombosis, Hypotension or Varicose Veins RESPIRATORY: Positive Chronic Obstructive Pulmonary Disease (COPD), Asthma (CHF SOB) and Pneumonia; Negative Bronchitis, Emphysema, Cystic Fibrosis, Pulmonary Embolism or Pulmonary Edema GASTROINTESTINAL: Positive Obesity; Negative Gastrointestinal Disorders, Hepatitis, Cirrhosis, Pancreatitis, Celiac Disease, Gall Bladder Disease, Gastrointestinal Bleed, Esophageal Varices, Stewart's Esophagus, Colitis, Ulcerative Colitis, Diverticulitis, Diverticulosis, Ulcer, Colorectal Cancer, Irritable Bowel, Crohn's Disease, Obstructive Bowel, Hiatal Hernia, Hemorrhoids or Gastroesophageal Reflux Disease GENITOURINARY: Positive Genitourinary Disorders, Renal Disease and Kidney Stones; Negative Polycystic Kidney Disease, Neurogenic Bladder, Prostate Cancer or Benign Prostatic Hyperplasia REPRODUCTIVE: Negative Breast Cancer, Genital Herpes, Gonorrhea, Syphilis or Testicular Cancer MUSCULOSKELETAL: Positive Musculoskeletal Disorders; Negative Muscular Dystrophy, Myasthenia Gravis, Marfan's Syndrome, Bone Cancer, Arthritis, Rheumatoid Arthritis, Osteoporosis, Degenerative Disk Disease, Gout, Scoliosis, Carpal Tunnel Syndrome, Fibromyalgia, Fractures, Degenerative Joint Disease, Osteomyelitis or Poliovirus ENT: Negative Cataracts, Glaucoma, Blind, Retinal Detachment, Macular Degeneration, Ear Infection, Deafness, Head Trauma or Eye Prosthesis ENDOCRINE: Positive Endocrine Disorders and Diabetes Mellitus Type 2 (pt does not know diabetic medication); Negative Diabetes Mellitus Type 1, Hypoglycemia, Hyperthyroidism, Hypothyroidism, Parathyroid Disease, Pituitary Disease, Systemic Lupus Erythematosus, Syndrome of Inappropriate Antidiuretic Hormone (SIADH) or Graves' Disease HEMATOLOGIC: Negative Blood Disorders, Anemia, Leukemia, Hemophilia, Thalassemia, Sickle Cell Disease or Clotting Problems PSYCHO/SOCIAL: Negative Psychiatric Problems, Schizophrenia, Recreational Drug Use, Bipolar Disorder, Depression, Anxiety, Behavior Problems, Self-Mutilation, Attention Deficit Disorder, Attention Deficit Hyperactivity Disorder, Depression, Post Traumatic Stress Disorder or Eating Disorder OTHER HISTORY: Positive Hospitalization; Negative Autoimmune Disease, Down Syndrome, Autism, Developmental Delay, Falls, Blood Transfusions, Blood Transfusion Reaction, Anesthesia Reactions, Organ Transplant, Chemotherapy, Radiation Therapy, Hyperbaric Therapy, MRSA, VRSA, Vancomycin-Resistant Enterococci, Human Immunodeficiency Virus (HIV), Chicken Pox, Measles, Mumps, Rubella ([place] Measles), Pertussis, Clostridium Difficile, Cancer, Breast Cancer, Colorectal Cancer, Lung Cancer, Prostate Cancer or Testicular Cancer Family History FAMILY HISTORY: Positive Family Cardiac Disorders; Negative Family Psychiatric Problems, Family Respiratory Disorders, Family Gastrointestinal Problems, Family Cancer, Family Surgery or Family Anesthesia Reaction Surgical History SURGICAL: Positive Cardiac Surgery and Pacemaker; Negative Open Heart Surgery, Coronary Artery Bypass Graft, Valve Replacement, Vascular Surgery, Coronary Stent, Cardiac Catheterization, Angiogram, Auto Implanted Cardiovert Defib, Carotid Endarterectomy, Endocrine Surgery, Thyroidectomy, Ear Surgery, Tympanostomy Tube, Eye Surgery, Nose Surgery, Oral Surgery, Tonsillectomy, Adenoidectomy, Cochlear Implant, Corneal Transplant, Throat Surgery, Abdominal Surgery, Tracheostomy, Gastric Bypass Surgery, Gastrostomy, Bowel Surgery, Nephrectomy, Transurethral Resection, Joint Replacement, Amputation, Open Reduction Internal Fixation, Arthroscopy, Neurologic Surgery, Brain Shunt, Vasectomy or Organ Transplant Social History SMOKING STATUS: Never smoker SECOND HAND EXPOSURE: No SUBSTANCE USE: methamphetamine ED Exam Narrative Physical exam: Alert and oriented 44-year-old male, mild acute pain distress. Lungs are clear, regular rate and rhythm. No tenderness to the elbow or forearm. Positive tenderness with decreased range of motion secondary to pain of the left wrist. Mild swelling, mild erythema noted. CMS intact distally. Course Vital Signs Vital signs: Vital Signs Temperature 97.8 F 11/11/24 03:47 Pulse Rate 74 11/11/24 03:47 Respiratory Rate 18 11/11/24 03:47 Blood Pressure 126/91 H 11/11/24 03:47 Pulse Oximetry (%) 98 11/11/24 03:47 Oxygen Delivery Method Room Air 11/11/24 03:47 Discharge Plan Prescriptions/Referrals Prescriptions/Med Rec: No Action losartan 100 mg tablet 1 tab PO QDAY Patient Comments: TAKE 1 TABLET BY MOUTH ONCE DAILY FOR 30 DAYS carvedilol 12.5 mg tablet 1 tab PO BID Patient Comments: TAKE 1 TABLET BY MOUTH TWICE DAILY WITH FOOD clopidogrel 75 mg tablet 1 tab PO QDAY Patient Comments: TAKE 1 TABLET BY MOUTH ONCE DAILY aspirin 81 mg tablet,delayed release (DR/EC) 81 mg PO QDAY Patient Comments: TAKE 1 TABLET BY MOUTH ONCE DAILY spironolactone 25 mg tablet 1 tab PO QDAY Patient Comments: TAKE 1 TABLET BY MOUTH ONCE DAILY furosemide 20 mg tablet 20 mg PO QDAY Patient Comments: TAKE 1 TABLET BY MOUTH ONCE DAILY atorvastatin 80 mg tablet 1 tab PO HS Patient Comments: TAKE 1 TABLET BY MOUTH ONCE DAILY ibuprofen 200 mg capsule 400 mg PO DAILY PRN (Reason: For tooth pain ) furosemide 40 mg tablet 40 mg PO BID Patient Comments: TAKE 1 TABLET BY MOUTH TWICE DAILY lactulose [Constulose] 10 gram/15 mL solution 20 g PO BID PRN (Reason: constipation) Qty: 300 0RF Patient/Caregiver Discharge Instructions Print Language: Japanese
[2024-11-11] MEDS: KETOROLAC INJ 60 MG/2 ML VIAL 30 MG IM (04:23)
--- NOTE | 2024-11-11 05:14 | PC.NURSE ---
pt took off after getting med and register.
== END 2024-11-11 05:15 | disposition left against medical advice (07) ==
PROVIDERS: Emergency Provider Emergency Medicine
DX: M25.532 Pain in left wrist (principal); M10.9 Gout, unspecified; Z95.0 Presence of cardiac pacemaker; Z95.5 Presence of coronary angioplasty implant and graft
CPT/HCPCS: 96372; 99283; J1885

== ENCOUNTER 2024-12-22 06:34 | Inpatient (IN) | payer MEDICAID, SELFPAY ==
[2024-12-22] VITALS (23 sets, daily range): BP systolic 127–167; BP diastolic 96–121; PULSE 82–108; RESP 0–34; TEMP 36.3–37.3; O2SAT 92–100; BMI 33.9; BMI 20.3
--- NOTE | 2024-12-22 07:07 | EDNOTE_ITS ---
ED SOB =RME/HPI General Chief Complaint: Shortness of Breath/Dyspnea Stated Complaint: SOB Time Seen by Provider: 12/22/24 07:07 Arrival date/time: 12/22/24 06:34 Limitations: no limitations RME / HPI RME / HPI Narrative: DR. GUIDRY MAIN ED EVALUATION: 44-year-old male with a history of congestive heart failure and methamphetamine abuse presents to the Emergency Department with shortness of breath for the past week. He reports that it feels like, I am holding my breath and can't get air and is unable to breathe, with symptoms worsening daily since he stopped using meth. He was evaluated in the ED 2?3 weeks ago for similar symptoms. He reports being clean from methamphetamine for the past 4 days and believes he may be experiencing withdrawal symptoms. Related Data Home Medications ?Medication ?Instructions ?Recorded ?Confirmed aspirin 81 mg tablet,delayed 81 mg PO QDAY 09/08/21 release carvedilol 12.5 mg tablet 1 tab PO BID 09/08/21 clopidogrel 75 mg tablet 1 tab PO QDAY 09/08/2108/02 furosemide 20 mg tablet 20 mg PO QDAY 09/08/2108/02 losartan 100 mg tablet 1 tab PO QDAY 09/08/2108/02 spironolactone 25 mg tablet 1 tab PO QDAY 09/08/2107/24 atorvastatin 80 mg tablet 1 tab PO HS 09/19/21 5 furosemide 40 mg tablet 40 mg PO BID 08/02/24 ibuprofen 200 mg capsule 400 mg PO DAILY PRN For toot h pain 08/02/24 08/02/24 Previous Rx's ?Medication ?Instructions ?Recorded lactulose 10 gram/15 mL oral 20 g (30 mL) PO BID PRN 0 09/14/24 solution (Constulose) constipation #300 mL Allergies Allergy/AdvReac Type Severity Reaction Status Date / Time No Known Allergies Allergy Verified 11/11/24 03:42 Review of Systems Review of Systems Systems Reviewed: All systems reviewed, normal except as documented Past Medical History Past Medical History CARDIAC: Positive Cardiac Disorders (CHF, Hypertension), Congestive Heart Failure, Edema and Hypertension RESPIRATORY: Positive Chronic Obstructive Pulmonary Disease (COPD), Asthma (CHF SOB) and Pneumonia GASTROINTESTINAL: Positive Obesity GENITOURINARY: Positive Genitourinary Disorders, Renal Disease and Kidney Stones MUSCULOSKELETAL: Positive Musculoskeletal Disorders ENDOCRINE: Positive Endocrine Disorders and Diabetes Mellitus Type 2 (pt does not know diabetic medication) OTHER HISTORY: Positive Hospitalization Family History FAMILY HISTORY: Positive Family Cardiac Disorders Surgical History SURGICAL: Positive Cardiac Surgery and Pacemaker Social History SMOKING STATUS: Never smoker SECOND HAND EXPOSURE: No SUBSTANCE USE: methamphetamine ED Exam General Limitations: Present no limitations General appearance: Present alert and in distress (tachypneic in the high 20s, speaking 3-4 word sentences; appears anxious; arrived tachycardic and hypertensive) Head Head exam: Present atraumatic, normocephalic and normal inspection Eye Eye exam: Present normal appearance, PERRL and EOMI ENT ENT exam: Present normal exam, normal oropharynx and mucous membranes moist Neck Neck exam: Present normal inspection, full ROM and trachea midline Chest Chest inspection: Present normal inspection and symmetric chest wall rise Respiratory Respiratory exam: Present respiratory distress (tachypneic in the high 20s, speaking 3-4 word sentences, but lungs are clear) Cardiovascular Cardiovascular exam: Present regular rate, normal rhythm and normal heart sounds Abdominal Exam Abdominal exam: Present soft and normal bowel sounds Extremities Exam Extremities exam: Present normal inspection and full ROM Back Exam Back exam: Present normal inspection and full ROM Neurological Exam Neurological exam: Present alert, oriented X3 and CN II-XII intact Psychiatric Psychiatric exam: Present normal affect and normal mood Skin Skin exam: Present warm, dry, intact and normal color Course Quality Measures none Orders Category Date Time Status Admit to Inpatient Status Routine Admission 12/22/24 10:14 Active Patient Condition Routine Admission 12/22/24 10:14 Ordered Activity as Tolerated Routine Care 12/22/24 10:15 Ordered Bedside COVID-19 Antigen Test NOW Care 12/22/24 10:26 Active Bacteriologist Industrial STAT Care 12/22/24 07:12 Active Continuous Pulse Oximetry ONCE Care 12/22/24 07:12 Active EKG (ED ONLY) *Do not use* NOW Care 12/22/24 07:12 Completed Fluid restriction QDAY Care 12/22/24 10:14 Active Insert IV STAT Care 12/22/24 07:12 Active Miscellaneous Nursing Order NOW Care 12/22/24 10:21 Active Notify provider NEEDED Care 12/22/24 10:14 Active Obtain weight daily Care 12/22/24 10:15 Active Strict Intake and Output Routine Care 12/22/24 10:15 Ordered Referral Respiratory Therapy Stat Cons 12/22/24 07:24 Active Diet Cardiac Diet 12/22/24 Dinner Active EKG (ED Only) Stat Exams 12/22/24 07:12 Draft XR chest 1V portable Stat Exams 12/22/24 07:12 Completed B-Type Natriuretic Peptide Stat Lab 12/22/24 08:07 Completed CBC AM DRAW Lab 12/23/24 05:00 Ordered CBC AM DRAW Lab 12/24/24 05:00 Ordered CBC AM DRAW Lab 12/25/24 05:00 Ordered CBC Stat Lab 12/22/24 08:07 Completed Comprehensive Metabolic Panel AM DRAW Lab 12/23/24 05:00 Ordered Comprehensive Metabolic Panel AM DRAW Lab 12/24/24 05:00 Ordered Comprehensive Metabolic Panel AM DRAW Lab 12/25/24 05:00 Ordered Comprehensive Metabolic Panel Stat Lab 12/22/24 08:07 Completed Drug Screen,Urine Stat Lab 12/22/24 08:30 Completed Hemoglobin A1C [Glycohemoglobin w (eAG)] AM DRAW Lab 12/23/24 05:00 Ordered Magnesium AM DRAW Lab 12/23/24 05:00 Ordered Magnesium AM DRAW Lab 12/24/24 05:00 Ordered Magnesium AM DRAW Lab 12/25/24 05:00 Ordered Magnesium Stat Lab 12/22/24 08:07 Completed Partial Thromboplastin Time Stat Lab 12/22/24 08:07 Completed Phosphorous AM DRAW Lab 12/23/24 05:00 Ordered Phosphorous AM DRAW Lab 12/24/24 05:00 Ordered Phosphorous AM DRAW Lab 12/25/24 05:00 Ordered Prothrombin Time with INR Stat Lab 12/22/24 08:07 Completed Troponin I Stat Lab 12/22/24 08:07 Completed Urinalysis, C/S if Indicated Stat Lab 12/22/24 08:30 Completed VBG [Venous Blood Gas] Stat Lab 12/22/24 10:26 Received Acetaminophen Tab [Tylenol Tab] Med 12/22/24 10:14 Active 650 mg PO Q6H PRN Furosemide Inj [Lasix Inj] Med 12/22/24 18:00 Active 40 mg IVP BIDD Furosemide Inj [Lasix Inj] Med 12/22/24 07:20 Discontinued 40 mg IVP X1 ONE Heparin Inj Med 12/22/24 21:00 Active 5,000 unit SC Q12HR Magnesium Sulfate 4 GM Ivpb [Magnesium Sulfate Ivpb] Med 12/22/24 10:20 Active 4 gm in 50 ml IV X1 Ondansetron Inj [Zofran Inj] Med 12/22/24 10:14 Active 4 mg IVP Q6H PRN Pantoprazole [Protonix] Med 12/22/24 10:30 Active 40 mg PO QDAY Senna [Senokot] Med 12/22/24 10:30 Active 1 tab PO QDAY hydrALAZINE INJ [Apresoline Inj] Med 12/22/24 07:20 Discontinued 10 mg IVP X1 ONE Code Status Routine Oth 12/22/24 10:14 Ordered BiPAP / CPAP NEEDED RT 12/22/24 08:42 Active Oxygen Delivery NOW RT 12/22/24 07:12 Active Oxygen Delivery PRN RT 12/22/24 10:14 Active Reevaluation(s) Reevaluation #1: RT at bedside, patient on biPAP. Patient states he is feeling better. Time: 08:19 Vital Signs Vital signs: Vital Signs Temperature 97.6 F 12/22/24 06:37 Pulse Rate 102 H 12/22/24 06:37 Respiratory Rate 20 12/22/24 06:37 Blood Pressure 138/102 H 12/22/24 06:37 Pulse Oximetry (%) 100 12/22/24 06:37 Oxygen Delivery Method Nasal Cannula 12/22/24 06:37 Oxygen Flow Rate 4 12/22/24 06:37 Shortness of Breath / Dyspnea MDM Narrative MDM Narrative:: I, Medina Hutchison, am scribing for and in the presence of Dr. Guidry. methamphetamine abuse, congestive heart failure, hypertension, chronic elevation of troponin Patient is a 44-year-old male who was BIBEMS for SOB, worse with lying flat and on exertion. Patient states that he continues to use methamphetamine and used the last about 48 hours ago or so, but only a little. Patient has a history of methamphetamine induced dilated cardiomyopathy with CHF, hypertension, renal insufficiency, chronic elevation of troponins and takes daily aspirin, atorvastatin, carvedilol, clopidogrel, furosemide, lactulose as needed, losartan and spironolactone. ?He has no history of ischemic heart disease or myocardial infarctions. He denies any past surgeries. He is here today with a 3-day history of progressively worsening dyspnea. He denies chest pain or equivalent. He has no other acute complaints. On exam the patient is ill-appearing but nontoxic. Patient has fine rales bilaterally at the bases on exam with increased work of breathing, tachypnea, 2- 3 word answers.? Workup was initiated. Patient was found to have BNP and troponins which are both elevated. Troponins are about at his baseline elevated troponin level. BNP is worse. We also found pulmonary edema on chest x-ray with cardiomegaly. The resident for Dr. Latif was contacted and the case was discussed. Pt to be admitted. Our hospitalist team was contacted and will come down to the ER to discuss the patient. Patient data External records reviewed:: [facility] previous records and EMS form Clinical information provided by:: patient and EMS Social determinants that could affect healthcare access:: substance use (methamphetamine abuse) Patient has the following chronic illnesses:: Congestive heart failure and methamphetamine abuse How is presenting disease/condition affected by chronic disease/condition?: exacerbated by Evaluation data The following diagnostics were reviewed and interpreted by me:: lab results, radiology exam(s) and EKG tracing(s) Lab and/or radiology exams considered but not ordered:: none Interpretation Summary: EKG: My interpretation: EKG performed at 0809 hours, sinus tachycardia, rate 103, normal axis, no ectopy, Q wave ni lead 2, 3, and AVF, no STEMI ECHO: CONCLUSIONS indication: HFrEF Dilated cardiomyopathy with severe global hypokinesis left ventricle ejection fraction 1015 to 20%. Dystolic Dysfunction III. RV is mildly dilated with reduced systolic function & elevated RVSP 53 mmHg. LA is moderately dilated. RA is mildly dilated. Dilated mitral annulus with mild to moderate 2+ mitral regurgitation secondary to annulus dilation Moderate to severe tricuspid regurgitation with group 2 pulmonary hypertension PA pressure 53 mmHg. Roseline Kang (Electronically Signed) Final Date: 03 August 2024 Procedure(s): XR chest 1V portable Accession Number(s): [id number] cc: Micha Christine MD; Tramaine Hollis MD; Kenan Guidry MD~ Examination: AP chest single view. TECHNIQUE: AP portable upright chest single view. Date and time: December 22, 2024, 0726 hours, comparison September 14, 2024. INDICATIONS: Chest pain and shortness of breath today. FINDINGS: Mild CHF. Moderate enlargement cardiac contour. Prominent vascular congestion including central vascular engorgement. Early septal edema at the lung bases. Stable position transvenous dual-chamber bipolar cardiac leads. IMPRESSION: Mild CHF Dictated By: Tramaine Hollis MD Chest x-ray: my interpretation shows: normal cardiac silhouette, soft tissue normal, no diaphragmatic edge, cardiomegaly, mild pulmonary edema, defibrillation left chest Medications / Prescriptions Medications or Prescriptions considered but not ordered:: none Medication administrations:: Medication Administration History Acetaminophen (Acetaminophen 325 Mg Tablet) 650 mg PO Q6H PRN PRN Reason: Fever >101.5 Stop: 01/21/25 10:13 Furosemide (Furosemide Inj 10 Mg/Ml 4ml Vial) 40 mg IVP BIDD [facility] Stop: 01/21/25 17:59 Heparin Sodium (Porcine) (Heparin Sod Inj 5000 Unit/Ml Vial) 5,000 unit SC Q12HR GAEL Stop: 01/05/25 20:59 Magnesium Sulfate (Magnesium Sulfate Ivpb) 4 gm in 50 mls @ 12.5 mls/hr IV X1 ONE Stop: 12/22/24 14:19 Ondansetron HCl (Ondansetron Inj 2 Mg/Ml Inj 2 Ml) 4 mg IVP Q6H PRN; Protocol PRN Reason: NAUSEA OR VOMITING Stop: 01/21/25 10:13 Pantoprazole Sodium (Pantoprazole 40 Mg Tablet) 40 mg PO QDAY [facility] Stop: 01/21/25 10:29 Last Admin: 12/22/24 10:27 Dose: 40 mg Documented By: [facility] Sennosides (Senna Tablet) 1 tab PO QDAY [facility]; Protocol Stop: 01/21/25 10:29 Last Admin: 12/22/24 10:27 Dose: 1 tab Documented By: [facility] Discontinued Medications Furosemide (Furosemide Inj 10 Mg/Ml 4ml Vial) 40 mg IVP X1 ONE Stop: 12/22/24 07:21 Last Admin: 12/22/24 08:36 Dose: 40 mg Documented By: [facility] Hydralazine HCl (Hydralazine Inj 20 Mg/Ml Vial) 10 mg IVP X1 ONE Stop: 12/22/24 07:21 Last Admin: 12/22/24 08:34 Dose: 10 mg Documented By: [facility] see above Consultations Consultation(s) initiated? (list below): Yes Consultation #1 (Physician, Specialty, Details): Discussed test HPI, PMHx, lab, radiology results and/or management with resident working with the hospitalist. Will admit for further evaluation and management. Accepts patient for admission. Time: 10:12 Diagnosis Shortness of Breath Differential Diagnosis: other (Congestive heart failure exacerbation, methamphetamine withdrawal with anxiety or hyperventilation, and arrhythmia.) Most likely diagnosis given after review of the tests above:: Methamphetamine abuse Hypertensive crisis Pulmonary edema CHF exacerbation Admission Indicated Admission indicated?: indicated Admission Request Was there a request for admission?: Yes Admission Attestation Admission request attestation: Discussed case with [] from Hospitalist service regarding admission. Discussed patients ED course, exam findings, labs, and radiology results. The Hospitalist [agrees,declines] to accept the patient for admission. Disposition Plan Disposition Plan: Admit Critical Care Time Critical Care Time Critical Care Time: Yes Total Critical Care Time (min.): 60 Attestation: The high probability of sudden, clinically significant deterioration in the patient?s condition required the highest level of my preparedness to intervene urgently. The services I provided to this patient were to treat and/or prevent clinically significant deterioration. Services included the following: chart data review, reviewing nursing notes and/or old charts, documentation time, senior sales consultant collaboration regarding findings and treatment options, medication orders and management, direct patient care, vital sign assessments and ordering, interpreting and reviewing diagnostic studies and lab tests. Aggregate critical care time includes only time during which I was engaged in work directly related to the patient?s care, as described above, whether at bedside or elsewhere in the Emergency Department. It did not include time spent performing other reported procedures or the services of residents, students, nurses or physician assistants. Discharge Plan Plan Patient Disposition: Admit Acute Care w/in Hospital Problem List Clinical Impression: Methamphetamine abuse, Pulmonary edema, CHF exacerbation, Hypertensive crisis
--- NOTE | 2024-12-22 07:12 | XR_ITS ---
Examination: AP chest single view. TECHNIQUE: AP portable upright chest single view. Date and time: December 22, 2024, 0726 hours, comparison September 14, 2024. INDICATIONS: Chest pain and shortness of breath today. FINDINGS: Mild CHF. Moderate enlargement cardiac contour. Prominent vascular congestion including central vascular engorgement. Early septal edema at the lung bases. Stable position transvenous dual-chamber bipolar cardiac leads. IMPRESSION: Mild CHF
--- NOTE | 2024-12-22 07:12 | EKG_ITS ---
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
--- NOTE | 2024-12-22 07:20 | PC.NURSE ---
PER SHIFT REPORT, PT JUST ARRIVED BY EMS WITH C/O DIFF BREATHING FOR 1 WEEK
[2024-12-22 08:31] LABS: Basophils # (Auto) 0.2 Thou/mm3 (0.0-0.2); Basophils % (Auto) 1 % (0-2.5); Eosinophils # (Auto) 0.1 Thou/mm3 (0.0-0.5); Eosinophils % (Auto) 1 % (0-10); Hematocrit 49.0 % (41.0-53.0); Hemoglobin 16.0 g/dL (13.5-16.0); Immature Granulocytes Auto 0.12 Thou/mm3 (0.00-0.00); Lymphocytes # (Auto) 1.7 Thou/mm3 (1.0-4.8); Lymphocytes % (Auto) 13 % (10-50); Mean Corpuscular HGB Conc 32.7 g/dl (31.0-37.0); Mean Corpuscular Hemoglobin 27.9 pg (25.0-35.0); Mean Corpuscular Volume 86 fL (80-100); Monocytes # (Auto) 1.2 Thou/mm3 (0.0-0.8); Monocytes % (Auto) 9 % (0-12); Neutrophils # (Auto) 9.5 Thou/mm3 (1.8-7.7); Neutrophils % (Auto) 75 % (37-80); Nucleated Red Blood Cell # 0.10 Thou/mm3 (0.00-0.00); Nucleated Red Blood Cell % 1 /100 WBC (0); Platelet Count 214 Thou/mm3 (140-440); RDW Standard Deviation 56.0 fL (35.1-43.9); Red Blood Count 5.73 Miln/mm3 (4.50-5.90); White Blood Count 12.7 Thou/mm3 (3.8-10.6)
[2024-12-22] MEDS: hydrALAZINE INJ 20 MG/ML VIAL 10 MG IVP (08:34)
[2024-12-22] MEDS: FUROSEMIDE INJ 10 MG/ML 4ML VIAL 40 MG IVP ×2 (08:36→17:19)
[2024-12-22 08:48] LABS: Alanine Aminotransferase 32 U/L (10-49); Albumin, Serum 3.9 gm/dL (3.5-5.0); Albumin/Globulin Ratio 1.3 (1.2-2.2); Alkaline Phosphatase 154 U/L (46-116); Anion Gap 13 (7-16); Aspartate Amino Transferase 27 U/L (0-34); B-Type Natriuretic Peptide 2824 pg/mL (0-100); BUN/Creatinine Ratio 13 Ratio (12-20); Bilirubin,Total 4.3 mg/dL (0.3-1.2); Blood Urea Nitrogen 21 mg/dL (9-23); Calcium 10.0 mg/dL (8.3-10.6); Calcium (Corrected) 10.1 mg/dL (8.5-10.1); Carbon Dioxide 27.3 mMol/L (20.0-31.0); Chloride 97 mMol/L (98-107); Creatinine (Component) 1.6 mg/dL (0.6-1.3); Estimated Creatinine Clearance 57.3 mL/min (>60); Globulin 3.1 gm/dL (2.3-3.5); Glucose 145 mg/dL (74-106); Magnesium 1.8 mg/dL (1.6-2.6); Osmolality,Calculated 279 (275-295); Potassium 4.2 mMol/L (3.4-5.1); Sodium 137 mMol/L (136-145); Total Protein 7.0 gm/dL (5.7-8.2); eGFR 54 See Note
[2024-12-22 08:51] LABS: INR 1.6 (0.9-1.3); Partial Thromboplastin Time 24.8 Seconds (22.0-36.0); Prothrombin Time 17.2 Seconds (9.0-12.2); Troponin I 0.147 ng/mL (0.0-0.045)
[2024-12-22 09:32] LABS: Collection Type, Urine Clean Catch
[2024-12-22 09:58] LABS: Bilirubin,Urine Negative (Negative); Blood,Urine Trace (Negative); Clarity,Urine Clear (Clear/Hazy); Color,Urine Yellow (Lt Yel-Yel); Culture Indicated,Urine Not Indicated; Glucose, Urine Negative (Negative); Hyaline Casts,Urine < 1 /hpf (0-1); Ketones,Urine Negative (Negative); Leukocyte Esterase,Urine Negative (Negative); Nitrite,Urine Negative (Negative); PH,Urine 6.0 (5.0-7.0); Protein,Urine 3+ (Neg - Trace); RBC,Urine 1 /hpf (0-3); Specific Gravity,Urine 1.020 (1.001-1.035); Squamous Epithelial Cell,Urine < 1 /hpf (0-5); Urobilinogen,Urine Negative mg/dL (0.0-1.0); WBC,Urine 2 /hpf (0-5)
[2024-12-22 10:26] LABS: Amphetamine/Methamp Scrn,U Positive (Negative); Barbiturate Screen,Urine Negative (Negative); Benzodiazepines Screen,Urine Negative (Negative); Benzoylecgonine Screen, Ur Negative (Negative); Fentanyl Screen,Urine Negative (Negative); Opiate Screen,Urine Negative (Negative); THC Screen,Urine Negative (Negative)
[2024-12-22] MEDS: PANTOPRAZOLE 40 MG TABLET PO (10:27)
--- NOTE | 2024-12-22 10:27 | PC.NURSE ---
UNABLE TO START MAGNESIUM IV DUE TO NO PUMP AVAILABLE IN CENTRAL
[2024-12-22 10:36] LABS: Base Excess, Venous 3 (-3-3); O2 Saturation, Venous 99 % (96-97); PCO2, Venous 35 mmHg (36-56); PO2, Venous 106 mmHg (15-58); pH, Venous 7.48 (7.33-7.66)
[2024-12-22] MEDS: Magnesium Sulfate 4 GM Ivpb 4 GM/50 ML BAG IV (11:04)
--- NOTE | 2024-12-22 12:39 | PC.NURSE ---
GIVEN MEAL TRAY
--- NOTE | 2024-12-22 14:28 | ESHP_ITS ---
Documentation for date of: 12/22/24 [facility] History of Present Illness History of present illness: Mr. Curtis is a 44-year-old male with past medical history significant for hypertension, type 2 diabetes, HFrEF with EF of 20% status post ICD placed in 2022 and Betty substance use disorder presented to the ED complaining of shortness of breath. Patient states he has been having severe shortness of breath which has progressively worsened over the last couple weeks and he was unable to lay flat. Patient endorsed being compliant on all the medications his explosive ordnance disposal technician started him on about 1.5 years ago, but has not followed up with his explosive ordnance disposal technician since. About 3 weeks ago, the patient ran out of medications and was not able to get it for about 1 week. Patient had no medications during that 1 week period. Patient was able to get his medications afterwards, but by then he noticed worsening SOB and difficulty laying flat. Patient denies using any home oxygen. Patient denies any chest pain, palpitations, syncopal episodes or PND. Patient states the only symptoms he has is severe shortness of breath and orthopnea and unable to lay flat and always have to sit up. Patient also states he is having severe shortness of breath walking very short distances. Patient denies any recent sick contacts or travel history. Patient had ICD placed when his EF was around 10 to 15% by explosive ordnance disposal technician in [place] and he cannot remember name of however has not followed up with the explosive ordnance disposal technician since the ICD was placed he does have an appointment coming up with him on January 21. Patient denies any abdominal pain, constipation, diarrhea or nausea or vomiting. ED course: In the ED initial blood pressure 138/102, heart rate 102, respirations 20, patient was placed on BiPAP and transition to full liter oxygen via nasal cannula. Labs are significant for WBC 12.7, creatinine 1.6, GFR 54, total bilirubin 4.7, troponin 0. 147, BNP 2824 Urinalysis is clean and urine tox is positive for methamphetamines VBG is within normal limits EKG was sinus tachycardia with no acute ST or T wave changes Chest x-ray shows mild CHF and pulmonary vascular congestion Medications: Patient does not know what medications he takes, asked his mother to bring medications to him for med rec. Will use external pharmacy data for now until med rec can be completed. PMH: hypertension, type 2 diabetes, HFrEF PSH: ICD placement SH: Former tobacco smoker but currently smokes methamphetamine and marijuana, denies alcohol use Allergies:: No known allergies to medications Home meds: Losartan, Janumet, atorvastatin, carvedilol, Lasix 40 mg twice daily, spironolactone Review of Systems Review of Systems Systems Reviewed: All systems reviewed, normal except as documented Exam Vital Signs Temp Pulse Resp BP Pulse Ox O2 Del Method O2 Flow Rate 97.4 F 103 H 10 L 137/96 H 92 L Room Air 2 12/22/24 12:01 12/22/24 12:01 12/22/24 12:01 12/22/24 12:01 12/22/24 12:01 12/22/24 10:35 12/22/24 11:46 FiO2 45 12/22/24 08:30 Narrative Exam GENERAL: A&Ox3 . Awake, Not in acute distress NEURO: no focal neurological deficits HEENT: Atraumatic, Normocephalic. mucous membranes moist. Eyes open, symmetrical, & clear, ICD noted left chest HEART: Normal Heart Sounds LUNGS: Clear to auscultation with no wheezing or crackles. ABDOMEN: soft, non-distended, non-tender, bowel sounds heard, no guarding or rebound tenderness SKIN: No Rash or ecchymoses EXTREMITIES: No edema, tenderness, able to move all 4 extremities, pedal pulses palpated Results: Labs 12/22/24 08:07 12/22/24 08:07 Labs: Short CBC 12/22/24 Range/Units 08:07 WBC 12.7 H (3.8-10.6) Thou/mm3 Hgb 16.0 (13.5-16.0) g/dL Hct 49.0 (41.0-53.0) % Plt Count 214 (140-440) Thou/mm3 BMP 12/22/24 08:07 Sodium 137 Potassium 4.2 Chloride 97 L Carbon Dioxide 27.3 BUN 21 Creatinine 1.6 H Glucose 145 H Calcium 10.0 Cardiac Enzymes 12/22/24 Range/Units 08:07 Troponin I 0.147 H* (0.0-0.045) ng/mL Liver Function 12/22/24 Range/Units 08:07 Total Bilirubin 4.3 H (0.3-1.2) mg/dL AST 27 (0-34) U/L ALT 32 (10-49) U/L Alkaline Phosphatase 154 H (46-116) U/L Albumin 3.9 (3.5-5.0) gm/dL Urine 12/22/24 Range/Units 08:30 Urine Color Yellow (Lt Yel-Yel) Urine Clarity Clear (Clear/Hazy) Urine pH 6.0 (5.0-7.0) Ur Specific [place] 1.020 (1.001-1.035) Urine Protein 3+ A (Neg - Trace) Urine Glucose (UA) Negative (Negative) ABG Interpretation ABG results: 12/22/24 10:26 VBG pH 7.48 VBG pCO2 35 L VBG pO2 106 H VBG Base Excess 3 Quality Measures Quality Measures VTE prophylaxis Medications Home Medications and Allergies Home Medications ?Medication ?Instructions ?Recorded ?Confirmed ?Type aspirin 81 mg tablet,delayed 81 mg PO QDAY 09/08/21 History release carvedilol 12.5 mg tablet 1 tab PO BID 09/08/21 History clopidogrel 75 mg tablet 1 tab PO QDAY 09/08/2108/02 History furosemide 20 mg tablet 20 mg PO QDAY 09/08/2108/02 History losartan 100 mg tablet 1 tab PO QDAY 09/08/2108/02 History spironolactone 25 mg tablet 1 tab PO QDAY 09/08/2107/24 History atorvastatin 80 mg tablet 1 tab PO HS 09/19/21 5 History furosemide 40 mg tablet 40 mg PO BID 08/02/24 History ibuprofen 200 mg capsule 400 mg PO DAILY PRN For toot h pain 08/02/24 08/02/24 History Allergies Allergy/AdvReac Type Severity Reaction Status Date / Time No Known Allergies Allergy Verified 11/11/24 03:42 Visit Medications Acetaminophen (Acetaminophen 325 Mg Tablet) 650 mg PO Q6H PRN PRN Reason: Fever >101.5 Stop: 01/21/25 10:13 Furosemide (Furosemide Inj 10 Mg/Ml 4ml Vial) 40 mg IVP BIDD [facility] Stop: 01/21/25 17:59 Heparin Sodium (Porcine) (Heparin Sod Inj 5000 Unit/Ml Vial) 5,000 unit SC Q12HR GAEL Stop: 01/05/25 20:59 Ondansetron HCl (Ondansetron Inj 2 Mg/Ml Inj 2 Ml) 4 mg IVP Q6H PRN; Protocol PRN Reason: NAUSEA OR VOMITING Stop: 01/21/25 10:13 Pantoprazole Sodium (Pantoprazole 40 Mg Tablet) 40 mg PO QDAY GAEL Stop: 01/21/25 10:29 Last Admin: 12/22/24 10:27 Dose: 40 mg Sennosides (Senna Tablet) 1 tab PO QDAY GAEL; Protocol Stop: 01/21/25 10:29 Last Admin: 12/22/24 10:27 Dose: 1 tab Discontinued Medications Furosemide (Furosemide Inj 10 Mg/Ml 4ml Vial) 40 mg IVP X1 ONE Stop: 12/22/24 07:21 Last Admin: 12/22/24 08:36 Dose: 40 mg Hydralazine HCl (Hydralazine Inj 20 Mg/Ml Vial) 10 mg IVP X1 ONE Stop: 12/22/24 07:21 Last Admin: 12/22/24 08:34 Dose: 10 mg Magnesium Sulfate (Magnesium Sulfate Ivpb) 4 gm in 50 mls @ 12.5 mls/hr IV X1 ONE Stop: 12/22/24 14:19 Last Admin: 12/22/24 11:04 Dose: 12.5 mls/hr Assessment & Plan Plan Mr. Curtis is a 44-year-old male with past medical history significant for hypertension, type 2 diabetes, HFrEF with EF of 20% status post ICD placed in 2022 and Betty substance use disorder presented to the ED complaining of shortness of breath and orthopnea. Pt is admitted to the hospital for CHF exacerbation. #Acute hypoxic respiratory failure 2/2 #CHF exacerbation, in the setting of #HFrEF, EF 20% s/p ICD #Non ischemic cardiomyopathy in the setting #methamphetamine use -Patient states he has been having severe shortness of breath which has progressively worsened over the last couple weeks and he was unable to lay flat. -Patient had ICD placed when his EF was around 10 to 15% by explosive ordnance disposal technician in [place] and was started on GDMT and EF improved to 20% -EKG was sinus tachycardia with no acute ST or T wave changes -Chest x-ray shows mild CHF and pulmonary vascular congestion -urine tox is positive for methamphetamines, Pt endorses to smoking it and admits to chronic use -Echo done on 08/02/24: Dilated cardiomyopathy with severe global hypokinesis left ventricle ejection fraction 1015 to 20%. -BNP 2824 Plan: -Strict Ins and Out's -Fluid restrictions to 1500ml daily -Supplemental O2 as needed -Lasix 40mg IVP BID -Echo ordered -Will resume GDMT as BP is able to tolerate (resumed home Losartan and Spironolactone), Will hold home coreg and will resumed when BP is able to tolerate -Keep K >4 and Mg > 2 #Elevated troponins likely #NSTEMI, type II Likely secondary to methamphetamine abuse and acute CHF exacerbation Presented with troponin level 0.147 EKG- was sinus tachycardia with no acute ST or T wave changes -Will trend troponins until down trend #Primary Hypertension -Resumed home Losartan which is part of GDMT, will continue to closely monitor BP as many of the GDMT meds can causes lowering of the BP #CKD stage IIIa #Non Insulin dependent Type 2 Diabetes Patient's baseline creatinine is 1.6, with GFR of 5, Cr on admission is 1.6 and GFR 54 (at his baseline) A1c 7.0 on 08/02/24 Plan: -Avoid nephrotoxic drugs and renally dose medications -resumed home losartan 100mg daily -Hold home Janumet -Started Sliding scale insulin -hypoglycemia protocol in place -Acu cheks AC -A1c for morning labs ordered #Poly Substance use disorder -Pt smokes methamphetamine and urine tox is positive -counseled on cessation -Social service referral Health Maintenance Disposition: telemetry for CHF exacerbation DVT Prophylaxis: Heparin 5000 units SC Q12hrs GI Prophylaxis: Pantoprozol-40 IVP Qday Diet: carbohydrate consistent Lines: Peripheral lines Code status: Full Patient plan of care was discussed with attending physician Dr. Salomon Smallwood, PGY1 Attending Provider Attestation/Addendum I attest that I was physically present for the evaluation, physical examination, lab and imaging review of the patient with the residents. I discussed the case with the residents and agree with the findings and plans of care as documented above. After examination of the patient and review of the clinical data I feel that this patient needs admission to the hospital for further treatment/evaluation. Danny Latif MD
--- NOTE | 2024-12-22 15:18 | ECHO_ITS ---
Transthoracic Echo Report Ht (in): 72 Wt (lb): 250 Exam Location: Echo Lab Status: Inpatient Quality Analyst/Technical Writer: Sandra Swanson Indications: Procedure Performed: BP: 127 / 100 HR: 90 MEASUREMENTS (Male / Female) Normal Values 2D ECHO LV Diastolic Diameter PLAX 7.5 cm 4.2 - 5.9 / 3.9 - 5.3 cm LV Systolic Diameter PLAX 7.0 cm IVS Diastolic Thickness 1.3 cm 0.6 - 1.0 / 0.6 - 0.9 cm LVPW Diastolic Thickness 1.6 cm 0.6 - 1.0 / 0.6 - 0.9 cm LV Relative Wall Thickness 0.4 LVOT Diameter 2.3 cm LV Ejection Fraction MOD BP 12.3 % >= 55 % LV Cardiac Index MOD BP 1440.9 cm?/min?m? LV Ejection Fraction MOD 4C 16.0 % LV Cardiac Index MOD 4C 1736.5 cm?/min?m? LV Ejection Fraction 4C AL 18.5 % LV Cardiac Index 4C AL 2092.5 cm?/min?m? LV Ejection Fraction MOD 2C 20.1 % LV Cardiac Index MOD 2C 2475.4 cm?/min?m? LV Ejection Fraction 2C AL 21.7 % LV Cardiac Index 2C AL 2707.5 cm?/min?m? LA Volume Index 50.5 cm?/m? 16 - 28 cm?/m? Ascending Aorta Diameter 3.9 cm M-MODE AV Cusp Separation MM 2.6 cm DOPPLER AV Peak Velocity 146.0 cm/s AV Peak Gradient 8.5 mmHg AV Mean Gradient 5.0 mmHg AV Velocity Time Integral 26.4 cm LVOT Peak Velocity 55.8 cm/s LVOT Peak Gradient 1.2 mmHg LVOT Velocity Time Integral 10.3 cm LVOT Cardiac Index 1581.1 cm?/min?m? AV Area Cont Eq vti 1.6 cm? AV Area Cont Eq pk 1.6 cm? MV Area PHT 7.3 cm? Mitral E Point Velocity 97.0 cm/s Mitral A Point Velocity 32.0 cm/s Mitral E to A Ratio 3.0 TR Peak Velocity 271.7 cm/s TR Peak Gradient 29.5 mmHg PV Peak Velocity 110.0 cm/s PV Peak Gradient 4.8 mmHg FINDINGS Left Ventricle There are findings consistent with dilaated cardiomyopathy. The left ventricular cavity size is severely increased. There is grade III diastolic dysfunction of the left ventricle. (restrictive filling pattern). The left ventricular ejection fraction is severely decreased, estimated at 15-20%. Right Ventricle The estimated right ventricular systolic pressure is elevated 48mmHg. Severe PHTN. The right ventricular systolic function is moderately decreased. The right ventricular size is moderately increased. Left Atrium Severely increased left atrial volume 50.5 mL/m2 Right Atrium The right atrial cavity size is mildly increased. Atrial Septum The interatrial septum appears normal with no evidence of a shunt. Aorta Dilated ascending aorta measuring 3.9cm. Mitral Valve [id number] mitral regurgitation. Moderate mitral annular calcification. Aortic Valve Mild aortic valve regurgitation. Tricuspid Valve There is moderate tricuspid regurgitation. Pulmonic Valve Moderate pulmonic valve regurgitation. Vessels The pulmonary artery appears normal. The inferior vena cava pulmonary and hepatic veins appear normal. Pericardium There is a small pericardial effusion. No evidence of cardiac tamponade CONCLUSIONS Indication: CHF exacerbation Dilated cardiomyopathy. Severe dialted LV with severe global Hypokinesis. EF estimated 10-15%. Diastolic dysfunction III RV is mildly dilated with severely reduced systolic function . Moerately elevated RVSP 50- 55 mmHg. LA is severely dilated. RA is mildly dilated Moderate MR secondary to Dilated mitral annulus and Moderate to Severe TR. Moderate PI . Trace pericardial effusion with no evidence of tamponade. Dialted IVC. Ronald Hernandez (Electronically Signed) Final Date: 23 December 2024 13:42
[2024-12-22] MEDS: LOSARTAN POTASSIUM 25 MG TABLET 100 MG PO (16:17)
--- NOTE | 2024-12-22 16:19 | PC.NURSE ---
PHARMACY CALLED FOR MEDICATION AND PT WALKED TO AND FROM BATHROOM.
--- NOTE | 2024-12-22 17:16 | PC.NURSE ---
CALLED PHARMACY AGAIN FOR MEDICATION SPIRONALACTONE
[2024-12-22] MEDS: SPIRONOLACTONE 25 MG TABLET PO (17:55)
--- NOTE | 2024-12-22 18:22 | PC.NURSE ---
ATTEMPTED TO CALL REPORT AND NURSE UNAVAILABLE
--- NOTE | 2024-12-22 19:48 | PC.NURSE ---
Addendum entered by Jann Cooper RN 12/22/24 23:28: Pt states family will bring his home medications in the morning. Original Note: Pt unsure of what medication he is taking at homel; therefore, medication reconcilation not able to be complete at this time.
[2024-12-22] MEDS: ATORVASTATIN CALCIUM 20 MG TABLET 40 MG PO (20:12)
[2024-12-22] MEDS: PROMETHAZINE/DM SYRUP 5 ML DOSE PO (22:29)
[2024-12-23] VITALS (20 sets, daily range): BP systolic 122–157; BP diastolic 86–110; PULSE 62–109; RESP 16–100; TEMP 36.1–37.1; O2SAT 95–100; BMI 20.3
[2024-12-23] MEDS: FUROSEMIDE INJ 10 MG/ML 4ML VIAL 40 MG IVP ×2 (05:07→17:11)
[2024-12-23 06:04] LABS: Basophils # (Auto) 0.1 Thou/mm3 (0.0-0.2); Basophils % (Auto) 1 % (0-2.5); Eosinophils # (Auto) 0.1 Thou/mm3 (0.0-0.5); Eosinophils % (Auto) 1 % (0-10); Hematocrit 47.7 % (41.0-53.0); Hemoglobin 15.8 g/dL (13.5-16.0); Immature Granulocytes Auto 0.09 Thou/mm3 (0.00-0.00); Lymphocytes # (Auto) 1.1 Thou/mm3 (1.0-4.8); Lymphocytes % (Auto) 10 % (10-50); Mean Corpuscular HGB Conc 33.1 g/dl (31.0-37.0); Mean Corpuscular Hemoglobin 28.2 pg (25.0-35.0); Mean Corpuscular Volume 85 fL (80-100); Monocytes # (Auto) 0.8 Thou/mm3 (0.0-0.8); Monocytes % (Auto) 7 % (0-12); Neutrophils # (Auto) 8.6 Thou/mm3 (1.8-7.7); Neutrophils % (Auto) 80 % (37-80); Nucleated Red Blood Cell # 0.03 Thou/mm3 (0.00-0.00); Nucleated Red Blood Cell % 0 /100 WBC (0); Platelet Count 184 Thou/mm3 (140-440); RDW Standard Deviation 55.8 fL (35.1-43.9); Red Blood Count 5.60 Miln/mm3 (4.50-5.90); White Blood Count 10.7 Thou/mm3 (3.8-10.6)
[2024-12-23 06:32] LABS: Glucose Estimated Average 200 mg/dL (80-131); Hemoglobin A1C 8.6 % Hgb (4.8-6.0)
[2024-12-23 06:40] LABS: Alanine Aminotransferase 28 U/L (10-49); Albumin, Serum 3.5 gm/dL (3.5-5.0); Albumin/Globulin Ratio 1.5 (1.2-2.2); Alkaline Phosphatase 131 U/L (46-116); Anion Gap 13 (7-16); Aspartate Amino Transferase 33 U/L (0-34); BUN/Creatinine Ratio 19 Ratio (12-20); Bilirubin,Total 4.0 mg/dL (0.3-1.2); Blood Urea Nitrogen 25 mg/dL (9-23); Calcium 9.2 mg/dL (8.3-10.6); Calcium (Corrected) 9.6 mg/dL (8.5-10.1); Carbon Dioxide 24.9 mMol/L (20.0-31.0); Chloride 97 mMol/L (98-107); Creatinine (Component) 1.3 mg/dL (0.6-1.3); Estimated Creatinine Clearance 70.5 mL/min (>60); Globulin 2.3 gm/dL (2.3-3.5); Glucose 227 mg/dL (74-106); Magnesium 2.1 mg/dL (1.6-2.6); Osmolality,Calculated 281 (275-295); Phosphorous 3.7 mg/dL (2.4-5.1); Potassium 4.3 mMol/L (3.4-5.1); Sodium 135 mMol/L (136-145); Total Protein 5.8 gm/dL (5.7-8.2); eGFR > 60 See Note
[2024-12-23 06:41] LABS: Troponin I 0.114 ng/mL (0.0-0.045)
[2024-12-23] MEDS: INSULIN LISPRO (AdmeLOG) 1 UNIT/0.01 ML UNIT SC ×3 (07:48→17:11)
[2024-12-23] MEDS: LOSARTAN POTASSIUM 25 MG TABLET 100 MG PO (08:07)
[2024-12-23] MEDS: PANTOPRAZOLE 40 MG TABLET PO (08:07)
[2024-12-23] MEDS: SPIRONOLACTONE 25 MG TABLET PO (08:08)
--- NOTE | 2024-12-23 12:06 | ESPR_ITS ---
<Statement entered by Katelynn Tovar MD - 12/23/24 15:31> Patient was seen and examined at bedside. I agree on the assessment and plan on this note as documented by resident Soham Smallwood DO PGY1. 44-year-old female with past medical history of hypertension, type 2 diabetes mellitus, heart failure with significantly reduced ejection fraction EF 20% status post ICD 2022 polysubstance use and active methamphetamine use presented to [facility] ED 12/22/2024 with a chief complaint of shortness of breath. Patient admitted for acute decompensated heart failure, started on IV diuresis, -500 cc since admission. Reports significant improvement of symptoms. Today echocardiogram shows EF 10 to 15%, severe global hypokinesis, diastolic dysfunction grade 3, will consult cardiology for global hypokinesis considering patient did have troponin elevation which did downtrend, denies any chest pain currently. Bilirubin downtrending, gallbladder ultrasound from August 2024 shows normal gallbladder, hepatomegaly primary hepatocellular disease will obtain hepatitis panel. Will obtain iron panel Will consider IV iron replacement if iron is low in a.m. Disposition telemetry management of acute decompensated heart failure. Case discussed with attending Dr. Danny Latif MD. Katelynn Tovar MD PGY-2 Documentation for date of: 12/23/24 Subjective Subjective Interval history: Overnight events: No acute events overnight. Patient was seen and examined at bedside. AM vitals and labs reviewed. Patient feels much better than yesterday. Patient breathing comfortably on room air. He is also able to lay flat on the bed for about 1-2 minutes without any shortness of breath. Wheezing noted on RLL of lungs, best appreciated posteriorly. Noted that patient is net negative -500 cc since admission while on furosemide 40 mg IV twice daily. Creatinine 1.3, bilirubin 4.0, glucose 210, A1c 8.6%, troponins 0.114 and Utox positive for methamphetamines. Echocardiogram resulted as dilated cardiomypoathy with severely dilated LV and severe global hypokinesis. EF estimated at 10-15%. LA is also severely dilated. Trace pericardial effusion with no evidence of tamponade. Iron panel ordered to assess for iron deficiency anemia in setting of CHF. Hydralazine 25 mg TID ordered for elevated BP. Will consider starting patient on Coreg if BP continues to be elevated tomorrow. Continue GDMT of Lasix, spironolactone, and losartan. Started patient on Duonebs 3 mL every 4 hours for wheezing noted on exam. Will reassess if patient needs it tomorrow. Consulted cardiology due to significant dilated cardiomyopathy on echocardiogram with worsening EF. Review of systems otherwise negative except for what is mentioned above. Exam Vital Signs Temp Pulse Resp BP Pulse Ox O2 Del Method O2 Flow Rate 97.6 F 87 20 133/108 H 95 Room Air 2 12/23/24 12:00 12/23/24 12:00 12/23/24 12:00 12/23/24 12:00 12/23/24 12:00 12/23/24 12:00 12/22/24 18:04 FiO2 45 12/22/24 08:30 Narrative Exam Physical Exam: General: Alert, no acute distress. Skin: Warm, dry, intact, no obvious rash. Head: Normocephalic, atraumatic. Eye: Normal conjunctiva, PERRL. Throat: Oral mucosa moist. No obvious lesions in oropharynx. Cardiovascular: Regular rate and rhythm, no murmur, +S1/S2. Respiratory: Respirations unlabored on room air, no crackles, wheezing noted on RLL, best appreciated posteriorly. Gastrointestinal: Soft, nontender, non-distended. No guarding or rebound tenderness. Extremities: No edema, no cyanosis, no clubbing. 2+ radial pulse bilaterally, 2+ pedal pulse bilaterally. Neuro: No focal deficits observed. Conversant, moving all extremities. No overt cerebellar signs/incoordination. Psychiatric: Cooperative, appropriate affect. Objective Labs 12/23/24 04:52 12/23/24 04:52 Labs: Laboratory Results - last 24 hr 12/23/24 04:52 WBC 10.7 H RBC 5.60 Hgb 15.8 Hct 47.7 MCV 85 MCH 28.2 MCHC 33.1 RDW Std Deviation 55.8 H Plt Count 184 D Neut % (Auto) 80 Lymph % (Auto) 10 [place] % (Auto) 7 Eos % (Auto) 1 Baso % (Auto) 1 Neut # (Auto) 8.6 H Lymph # (Auto) 1.1 [place] # (Auto) 0.8 Eos # (Auto) 0.1 Baso # (Auto) 0.1 Immature Gran # (Auto) 0.09 H Absolute Nucleated RBC 0.03 H Immature Gran % 1 H Nucleated RBC % 0 Sodium 135 L Potassium 4.3 Chloride 97 L Carbon Dioxide 24.9 Anion Gap 13 BUN 25 H Creatinine 1.3 Estim Creat Clear Calc 70.5 eGFR > 60 BUN/Creatinine Ratio [address] Glu mg/dL 200 H Hemoglobin A1c 8.6 H Calculated Osmolality 281 Calcium 9.2 Corrected Calcium 9.6 Phosphorus 3.7 Magnesium 2.1 Total Bilirubin 4.0 H AST 33 ALT 28 Alkaline Phosphatase 131 H D Troponin I 0.114 H* Total Protein 5.8 Albumin 3.5 Globulin 2.3 Albumin/Globulin Ratio 1.5 ABG Interpretation ABG results: 12/22/24 10:26 VBG pH 7.48 VBG pCO2 35 L VBG pO2 106 H VBG Base Excess 3 Quality Measures Quality Measures VTE prophylaxis Assessment & Plan Assessment Current Active Medications: Generic Name Dose Route Start Last Admin Trade Name Freq PRN Reason Stop Dose Admin Acetaminophen 650 mg 12/23/24 11:19 Acetaminophen 325 Mg Tablet PO 01/21/25 10:13 Q6H PRN Fever >101.5 Atorvastatin Calcium 40 mg 12/22/24 21:00 12/22/24 20:12 Atorvastatin Calcium 20 Mg Tablet PO 01/21/25 20:59 40 mg HS GAEL Administration Dextrose 25 ml 12/22/24 19:25 Dextrose 50%-Water Inj 50 Ml Syringe IV 01/21/25 19:24 Q15MIN PRN BG 50-70 responsive npo pt Dextrose 50 ml 12/22/24 19:25 Dextrose 50%-Water Inj 50 Ml Syringe IV 01/21/25 19:24 Q15MIN PRN BG <50 OR BG <70 & pt unresponsive Furosemide 40 mg 12/22/24 18:00 12/23/24 05:07 Furosemide Inj 10 Mg/Ml 4ml Vial IVP 01/21/25 17:59 40 mg BIDD GAEL Administration Glucagon 1 mg 12/22/24 19:25 Glucagon Inj 1 Mg Vial IM Q15MIN PRN BG <70, and no IV access Heparin Sodium (Porcine) 5,000 unit 12/22/24 21:00 12/23/24 08:11 Heparin Sod Inj 5000 Unit/Ml Vial SC 01/05/25 20:59 Not Given Q12HR GAEL Hydralazine HCl 25 mg 12/23/24 09:15 12/23/24 10:42 Hydralazine Hcl 25 Mg Tablet PO 01/22/25 09:14 25 mg TID GAEL Administration Insulin Human Lispro 0 unit 12/23/24 07:30 12/23/24 11:54 Insulin Lispro (Admelog) 1 Unit/0.01 Ml Unit SC 01/22/25 07:29 2 unit AC GAEL Administration Protocol Losartan Potassium 100 mg 12/22/24 15:30 12/23/24 08:07 Losartan Potassium 25 Mg Tablet PO 01/21/25 15:29 100 mg QDAY GAEL Administration Ondansetron HCl 4 mg 12/22/24 10:14 Ondansetron Inj 2 Mg/Ml Inj 2 Ml IVP 01/21/25 10:13 Q6H PRN NAUSEA OR VOMITING Protocol Pantoprazole Sodium 40 mg 12/22/24 10:30 12/23/24 08:07 Pantoprazole 40 Mg Tablet PO 01/21/25 10:29 40 mg QDAY GAEL Administration Sennosides 1 tab 12/22/24 10:30 12/23/24 08:08 Senna Tablet PO 01/21/25 10:29 1 tab QDAY GAEL Administration Protocol Spironolactone 25 mg 12/22/24 15:30 12/23/24 08:08 Spironolactone 25 Mg Tablet PO 01/21/25 15:29 25 mg QDAY GAEL Administration Plan Mr. Curtis is a 44-year-old male with past medical history significant for hypertension, type 2 diabetes, HFrEF with EF of 20% status post ICD placed in 2022 and Betty substance use disorder presented to the ED complaining of shortness of breath and orthopnea. Pt is admitted to the hospital for CHF exacerbation. #Acute hypoxic respiratory failure 2/2 #CHF exacerbation, in the setting of #HFrEF, EF 10-15% s/p ICD #Non ischemic cardiomyopathy in the setting #Methamphetamine use -Patient states he has been having severe shortness of breath which has progressively worsened over the last couple weeks and he was unable to lay flat. -Patient had ICD placed when his EF was around 10 to 15% by broacher in [place] and was started on GDMT and EF improved to 20% -EKG was sinus tachycardia with no acute ST or T wave changes -Chest x-ray shows mild CHF and pulmonary vascular congestion -urine tox is positive for methamphetamines, Pt endorses to smoking it and admits to chronic use -Echo done on 08/02/24: Dilated cardiomyopathy with severe global hypokinesis left ventricle ejection fraction 1015 to 20%. -BNP 2824 Plan: -Strict Ins and Out's -Fluid restrictions to 1500ml daily -Supplemental O2 as needed -Lasix 40mg IVP BID -Echo ordered, resulted as dilated cardiomypoathy with severely dilated LV and severe global hypokinesis. EF estimated at 10-15%. LA is also severely dilated. Trace pericardial effusion with no evidence of tamponade. -Will resume GDMT as BP is able to tolerate (resumed home Losartan and Spironolactone), Will hold home coreg and will resumed when BP is able to tolerate -Keep K >4 and Mg > 2 -Iron panel ordered, pending -Cardiology consulted, appreciate recommendations -Duonebs 3 mL every 4 hours for wheezing, will reassess if patient continues to need #Elevated troponins likely #NSTEMI, type II Likely secondary to methamphetamine abuse and acute CHF exacerbation Presented with troponin level 0.147 EKG- was sinus tachycardia with no acute ST or T wave changes -Will trend troponins until down trend #Primary Hypertension -Resumed home Losartan which is part of GDMT, will continue to closely monitor BP as many of the GDMT meds can causes lowering of the BP -Hydralazine 25 mg TID #CKD stage IIIa #Non Insulin dependent Type 2 Diabetes Patient's baseline creatinine is 1.6, with GFR of 5, Cr on admission is 1.6 and GFR 54 (at his baseline) A1c 7.0 on 08/02/24 Plan: -Avoid nephrotoxic drugs and renally dose medications -resumed home losartan 100mg daily -Hold home Janumet -Started Sliding scale insulin -hypoglycemia protocol in place -Acu cheks AC -A1c for morning labs ordered #Poly Substance use disorder -Pt smokes methamphetamine and urine tox is positive -counseled on cessation -Social service referral Health Maintenance Disposition: telemetry for CHF exacerbation DVT Prophylaxis: Heparin 5000 units SC Q12hrs GI Prophylaxis: Pantoprozol-40 IVP Qday Diet: carbohydrate consistent Lines: Peripheral lines Code status: Full Patient plan of care was discussed with attending physician Dr. Latif and senior resident Dr. Tovar (PGY-2) Soham Smallwood, PGY1 Attending Provider Attestation/Addendum I attest that I was physically present for the evaluation, physical examination, lab and imaging review of the patient with the residents. I discussed the case with the residents and agree with the findings and plans of care as documented above. At bedside today, patient states he is feeling better and denies any new complaints. Blood pressure noted to be high this morning, 152/110, we will add hydralazine. Continues to be on Lasix 40 p.o. twice daily IV, and monitor his output closely. Follow-up echocardiography showed ejection fraction of 10 to 15% with grade 3 diastolic dysfunction and severely dilated left ventricle with severe global hypokinesis. We will obtain cardiology consult. Troponin has down trended likely NSTEMI type II. Blood glucose has been controlled with insulin regimen. Awaiting physical therapy recommendation and cardiology recommendation. Danny Latif MD
[2024-12-23] MEDS: ALBUTEROL/IPRATROPIUM (Duoneb) RT SOL 3 ML NEBU INH ×3 (13:55→22:18)
--- NOTE | 2024-12-23 15:33 | PC.SS ---
This is 44-year-old, , single male who presented to the ED due to suffering from shortness of breath. Patient appeared alert and oriented to self, place and situation. Patient was pleasant. Patient confirmed his address (physical address: [address] [place] [address], [place] [address]). Patient reported that he resides at home with his mother, Nadia. Patient is independent with all ADLs, no DME use. Patient assigned his mother, Nadia as his medical surrogate decision maker. Patient's PCP is [facility]. When medically clear, patient will return home and declined needing transportation. Discharge plan: return home. medical surrogate decision maker: Nadia-mother Patient remains on IV diuretics, cardiology has been consulted for recommendations.
--- NOTE | 2024-12-23 15:45 | ESCONSULT_ITS ---
HPI Data of Consult Patient: new to practice Consult date: 12/23/24 Requesting Physician: Esha Santos MD Admitting Provider: Danny Latif MD Attending Provider: Esha Santos MD Primary Care Provider: Micha Christine MD Consult Narrative Reason for consult: CHF Exacerbation History of present illness: Patient has a history of CHF, dCMP s/p ICD and CAD s/p stent, history of methamphetamine abuse, history of diabetes mellitus, HTN, the patient presented to the emergency room complaining of severe shortness of breath. Patient reported that he ran out of his medications about 1 week ago, and started having difficulty breathing at rest and on exertion. Patient was unable to lay flat due to shortness of breath. Reported he felt like he is filling up with fluid . Patient denies chest pain or pressure, but endorsed dyspnea on exertion and at rest, there endorses to apnea and paroxysmal nocturnal dyspnea. The patient was previously established with soft work cigar machine operator in [place], patient cannot remember his name, stated name sounds like Dr. Albert or Said, but has been seen at their clinic on [facility], the patient does not have ICD card. Reported noncompliance with cardiology follow- up visits, never followed up with cardiology for pacemaker checks. He was previously seen by Dr. Blanc and [facility], also reported having an coronary angiogram and stent placement at hospital in [place] over 2 years ago and implantable cardioverter-defibrillator (ICD) was placed approximately 2 years ago due to life-threatening arrhythmias; the device has delivered shocks twice, once about a year ago and once three months ago. The patient describes the shocks as feeling like 'something kicking in your funny bone.' One shock occurred a year ago during an episode of severe shortness of breath and dizziness while working in the yard. There is a history of coronary artery disease with one stent placed in [place] about 2-3 years ago. Patient denies current chest pain, fever, or peripheral swelling, but notes tightness in shorts and possible upper body swelling prior to admission. No recent episodes of syncope or near-syncope except during the period without medications. Patient describes improvement in breathing and overall well-being since hospitalization and resumption of medications. In the ED, patient presented with chief complaint of respiratory distress and hypoxia, was placed on BiPAP, initial BP 138/102, heart rate 102, RR 20, patient was later transitioned to nasal cannula oxygen Initial labs are significant for WBC 12.7, creatinine 1.6, GFR 54, total bilirubin 4.7, troponin 0.147, BNP 2824 Drug screen positive for methamphetamines, VBG is within normal limits, EKG was sinus tachycardia with no acute ST or T wave changes, Chest x-ray shows mild CHF and pulmonary vascular congestion Past medical history: Dilated cardiomyopathy s/p ICD, coronary artery disease s/p stent, history of methamphetamine abuse, history of diabetes mellitus and hypertension Surgical history: History of ICD placement, history of coronary angiogram with PCI?patient report SH: Former tobacco smoker but currently smokes methamphetamine and marijuana, denies alcohol use Allergies:: No known allergies to medications Home meds: Losartan, Janumet, atorvastatin, carvedilol, Lasix 40 mg twice daily, spironolactone. The patient reports breaking spironolactone tablets into quarters due to lightheadedness at higher doses. Patient denied taking aspirin or Plavix, was unsure when it was prescribed, but stated that following a PCI he did take some blood thinners 2 years ago. cc:: cc: Esha Santos MD Review of Systems Review of Systems Systems Reviewed: All systems reviewed, normal except as documented Past Medical History Past Medical History NEUROLOGIC: Negative Neurological Disorders, Cerebrovascular Accident, Transient Ischemic Attacks (TIA), Dementia, Alzheimer's Disease, Parkinson's Disease, Brain Tumor, Meningitis, Seizures, Epilepsy, Multiple Sclerosis, Cerebral Palsy, Amyotrophic Lateral Sclerosis (ALS/Antonietta Gehrig's), Guillain-[place] Syndrome, Spina Bifida, Paralysis, Peripheral Neuropathy, Blanc's Palsy, Subdural Hematoma, Migraine, Head Trauma, Spinal Cord Injury or Traumatic Brain Injury CARDIAC: Positive Cardiac Disorders, Congestive Heart Failure, Edema and Hypertension; Negative Myocardial Infarction, Cardiac Arrhythmia, Atrial Fibrillation, Angina, Heart Murmur, Coronary Artery Disease, Atherosclerotic Heart Disease, Peripheral Vascular Disease, Hypercholesterolemia, Aneurysm, Congenital Heart Disease, Valvular Heart Disease, Rheumatic Fever, Cardiomyopathy, Pericarditis, Cellulitis, Deep Vein Thrombosis, Hypotension or Varicose Veins RESPIRATORY: Positive Chronic Obstructive Pulmonary Disease (COPD), Asthma and Pneumonia; Negative Bronchitis, Emphysema, Cystic Fibrosis, Pulmonary Embolism or Pulmonary Edema GASTROINTESTINAL: Positive Obesity; Negative Gastrointestinal Disorders, Hepatitis, Cirrhosis, Pancreatitis, Celiac Disease, Gall Bladder Disease, Gastrointestinal Bleed, Esophageal Varices, Stewart's Esophagus, Colitis, Ulcerative Colitis, Diverticulitis, Diverticulosis, Ulcer, Colorectal Cancer, Irritable Bowel, Crohn's Disease, Obstructive Bowel, Hiatal Hernia, Hemorrhoids or Gastroesophageal Reflux Disease GENITOURINARY: Positive Genitourinary Disorders, Renal Disease and Kidney Stones; Negative Polycystic Kidney Disease, Neurogenic Bladder, Prostate Cancer or Benign Prostatic Hyperplasia REPRODUCTIVE: Negative Breast Cancer, Genital Herpes, Gonorrhea, Syphilis or Testicular Cancer MUSCULOSKELETAL: Positive Musculoskeletal Disorders; Negative Muscular Dystrophy, Myasthenia Gravis, Marfan's Syndrome, Bone Cancer, Arthritis, Rheumatoid Arthritis, Osteoporosis, Degenerative Disk Disease, Gout, Scoliosis, Carpal Tunnel Syndrome, Fibromyalgia, Fractures, Degenerative Joint Disease, Osteomyelitis or Poliovirus ENT: Negative Cataracts, Glaucoma, Blind, Retinal Detachment, Macular Degeneration, Ear Infection, Deafness, Head Trauma or Eye Prosthesis ENDOCRINE: Positive Endocrine Disorders and Diabetes Mellitus Type 2; Negative Diabetes Mellitus Type 1, Hypoglycemia, Hyperthyroidism, Hypothyroidism, Parathyroid Disease, Pituitary Disease, Systemic Lupus Erythematosus, Syndrome of Inappropriate Antidiuretic Hormone (SIADH) or Graves' Disease HEMATOLOGIC: Negative Blood Disorders, Anemia, Leukemia, Hemophilia, Thalassemia, Sickle Cell Disease or Clotting Problems PSYCHO/SOCIAL: Negative Psychiatric Problems, Schizophrenia, Recreational Drug Use, Bipolar Disorder, Depression, Anxiety, Behavior Problems, Self-Mutilation, Attention Deficit Disorder, Attention Deficit Hyperactivity Disorder, Depression, Post Traumatic Stress Disorder or Eating Disorder OTHER HISTORY: Positive Hospitalization; Negative Autoimmune Disease, Down Syndrome, Autism, Developmental Delay, Falls, Blood Transfusions, Blood Transfusion Reaction, Anesthesia Reactions, Organ Transplant, Chemotherapy, Radiation Therapy, Hyperbaric Therapy, MRSA, VRSA, Vancomycin-Resistant Enterococci, Human Immunodeficiency Virus (HIV), Chicken Pox, Measles, Mumps, Rubella (Uzbek Measles), Pertussis, Clostridium Difficile, Cancer, Breast Cancer, Colorectal Cancer, Lung Cancer, Prostate Cancer or Testicular Cancer Family History FAMILY HISTORY: Positive Family Cardiac Disorders; Negative Family Psychiatric Problems, Family Respiratory Disorders, Family Gastrointestinal Problems, Family Cancer, Family Surgery or Family Anesthesia Reaction Surgical History SURGICAL: Positive Cardiac Surgery and Pacemaker; Negative Open Heart Surgery, Coronary Artery Bypass Graft, Valve Replacement, Vascular Surgery, Coronary Stent, Cardiac Catheterization, Angiogram, Auto Implanted Cardiovert Defib, Carotid Endarterectomy, Endocrine Surgery, Thyroidectomy, Ear Surgery, Tympanostomy Tube, Eye Surgery, Nose Surgery, Oral Surgery, Tonsillectomy, Adenoidectomy, Cochlear Implant, Corneal Transplant, Throat Surgery, Abdominal Surgery, Tracheostomy, Gastric Bypass Surgery, Gastrostomy, Bowel Surgery, Nephrectomy, Transurethral Resection, Joint Replacement, Amputation, Open Reduction Internal Fixation, Arthroscopy, Neurologic Surgery, Brain Shunt, Vasectomy or Organ Transplant Social History SMOKING STATUS: Never smoker SECOND HAND EXPOSURE: No SUBSTANCE USE: methamphetamine Exam Vital Signs Temp Pulse Resp BP Pulse Ox O2 Del Method O2 Flow Rate 97.6 F 62 20 133/108 H 99 Room Air 2 12/23/24 12:00 12/23/24 14:54 12/23/24 13:57 12/23/24 14:54 12/23/24 13:57 12/23/24 12:00 12/22/24 18:04 FiO2 45 12/22/24 08:30 Narrative Exam General: AOx3, cooperative, seems anxious, walking around the room, saturating well on room air Skin: Intact, no cyanosis or edema on lower extreme noted. 1+ dependent edema positive HEENT: Atraumatic/normocephalic, ARAVIND, neck supple Heart: RRR, S1 and S2 without clicks or murmurs Lungs: Clear on auscultation bilaterally, no difficulty breathing Abdomen: Soft, nontender. Bowel sounds present . Vascular: Peripheral pulses palpable Neuro: No focal neurological deficits noted. Results Labs 12/24/24 04:38 12/24/24 04:38 Labs: Short CBC 12/23/24 Range/Units 04:52 WBC 10.7 H (3.8-10.6) Thou/mm3 Hgb 15.8 (13.5-16.0) g/dL Hct 47.7 (41.0-53.0) % Plt Count 184 D (140-440) Thou/mm3 BMP 12/23/24 04:52 Sodium 135 L Potassium 4.3 Chloride 97 L Carbon Dioxide 24.9 BUN 25 H Creatinine 1.3 Glucose 227 H D Calcium 9.2 Cardiac Enzymes 12/23/24 Range/Units 04:52 Troponin I 0.114 H* (0.0-0.045) ng/mL Liver Function 12/23/24 Range/Units 04:52 Total Bilirubin 4.0 H (0.3-1.2) mg/dL AST 33 (0-34) U/L ALT 28 (10-49) U/L Alkaline Phosphatase 131 H D (46-116) U/L Albumin 3.5 (3.5-5.0) gm/dL ABG Interpretation ABG results: 12/22/24 10:26 VBG pH 7.48 VBG pCO2 35 L VBG pO2 106 H VBG Base Excess 3 Quality Measures Quality Measures VTE prophylaxis Medications Home Medications and Allergies Home Medications ?Medication ?Instructions ?Recorded ?Confirmed ?Type aspirin 81 mg tablet,delayed 81 mg PO QDAY 09/08/21 History release carvedilol 12.5 mg tablet 1 tab PO BID 09/08/21 History clopidogrel 75 mg tablet 1 tab PO QDAY 09/08/2112/23 History losartan 100 mg tablet 1 tab PO QDAY 09/08/2112/23 History spironolactone 25 mg tablet 1 tab PO QDAY 09/08/21 History atorvastatin 80 mg tablet 1 tab PO HS 09/19/21 5 History furosemide 40 mg tablet 40 mg PO BID 08/02/24 History sitagliptin phosphate 50 1 tab PO BIDWM 12/23/2412/01 History mg-metformin 1,000 mg tablet (Gretel) Allergies Allergy/AdvReac Type Severity Reaction Status Date / Time No Known Allergies Allergy Verified 11/11/24 03:42 Visit Medications Acetaminophen (Acetaminophen 325 Mg Tablet) 650 mg PO Q6H PRN PRN Reason: Fever >101.5 Stop: 01/21/25 10:13 Albuterol/Ipratropium (Albuterol/Ipratropium (Duoneb) Rt Jacqueline 3 Ml Nebu) 3 ml INH Q4HRRT GAEL Stop: 01/22/25 14:59 Last Admin: 12/23/24 13:55 Dose: 3 ml Atorvastatin Calcium (Atorvastatin Calcium 20 Mg Tablet) 40 mg PO HS GAEL Stop: 01/21/25 20:59 Last Admin: 12/22/24 20:12 Dose: 40 mg Dextrose (Dextrose 50%-Water Inj 50 Ml Syringe) 25 ml IV Q15MIN PRN PRN Reason: BG 50-70 responsive npo pt Stop: 01/21/25 19:24 Dextrose (Dextrose 50%-Water Inj 50 Ml Syringe) 50 ml IV Q15MIN PRN PRN Reason: BG <50 OR BG <70 & pt unresponsive Stop: 01/21/25 19:24 Furosemide (Furosemide Inj 10 Mg/Ml 4ml Vial) 40 mg IVP BIDD [facility] Stop: 01/21/25 17:59 Last Admin: 12/23/24 05:07 Dose: 40 mg Glucagon (Glucagon Inj 1 Mg Vial) 1 mg IM Q15MIN PRN PRN Reason: BG <70, and no IV access Heparin Sodium (Porcine) (Heparin Sod Inj 5000 Unit/Ml Vial) 5,000 unit SC Q12HR [facility] Stop: 01/05/25 20:59 Last Admin: 12/23/24 08:11 Dose: Not Given Hydralazine HCl (Hydralazine Hcl 25 Mg Tablet) 25 mg PO TID [facility] Stop: 01/22/25 09:14 Last Admin: 12/23/24 14:54 Dose: 25 mg Insulin Human Lispro (Insulin Lispro (Admelog) 1 Unit/0.01 Ml Unit) 0 unit SC AC [facility]; Protocol Stop: 01/22/25 07:29 Last Admin: 12/23/24 11:54 Dose: 2 unit Losartan Potassium (Losartan Potassium 25 Mg Tablet) 100 mg PO QDAY [facility] Stop: 01/21/25 15:29 Last Admin: 12/23/24 08:07 Dose: 100 mg Ondansetron HCl (Ondansetron Inj 2 Mg/Ml Inj 2 Ml) 4 mg IVP Q6H PRN; Protocol PRN Reason: NAUSEA OR VOMITING Stop: 01/21/25 10:13 Pantoprazole Sodium (Pantoprazole 40 Mg Tablet) 40 mg PO QDAY [facility] Stop: 01/21/25 10:29 Last Admin: 12/23/24 08:07 Dose: 40 mg Sennosides (Senna Tablet) 1 tab PO QDAY [facility]; Protocol Stop: 01/21/25 10:29 Last Admin: 12/23/24 08:08 Dose: 1 tab Spironolactone (Spironolactone 25 Mg Tablet) 25 mg PO QDAY [facility] Stop: 01/21/25 15:29 Last Admin: 12/23/24 08:08 Dose: 25 mg Discontinued Medications Acetaminophen (Acetaminophen 325 Mg Tablet) 650 mg PO Q6H PRN PRN Reason: Fever >101.5 Stop: 01/21/25 10:13 Furosemide (Furosemide Inj 10 Mg/Ml 4ml Vial) 40 mg IVP X1 ONE Stop: 12/22/24 07:21 Last Admin: 12/22/24 08:36 Dose: 40 mg Hydralazine HCl (Hydralazine Inj 20 Mg/Ml Vial) 10 mg IVP X1 ONE Stop: 12/22/24 07:21 Last Admin: 12/22/24 08:34 Dose: 10 mg Magnesium Sulfate (Magnesium Sulfate Ivpb) 4 gm in 50 mls @ 12.5 mls/hr IV X1 ONE Stop: 12/22/24 14:19 Last Infusion: 12/22/24 14:51 Dose: Infused Promethazine HCl/Dextromethorphan (Promethazine/Dm Syrup 5 Ml Dose) 5 ml PO X1 ONE; Protocol Stop: 12/22/24 22:17 Last Admin: 12/22/24 22:29 Dose: 5 ml Assessment & Plan Plan Patient has a history of CHF, dCMP s/p ICD and CAD s/p stent, history of methamphetamine abuse, history of diabetes mellitus, HTN, the patient presented to the emergency room complaining of severe shortness of breath. Patient reported that he ran out of his medications about 1 week ago, and started having difficulty breathing at rest and on exertion. Patient was unable to lay flat due to shortness of breath. Reported he felt like he is filling up with fluid . Patient denies chest pain or pressure, but endorsed dyspnea on exertion and at rest, there endorses to apnea and paroxysmal nocturnal dyspnea. The patient was previously established with soft work cigar machine operator in [place], Dr. Higuera, has been seen at their clinic on [facility] [place], the patient does not have ICD card. Reported noncompliance with cardiology follow-up visits, never followed up with cardiology for pacemaker checks. He was previously seen by Dr. Srinivasan at [facility], also reported having an coronary angiogram and stent placement at hospital in [place] over 2 years ago and implantable cardioverter-defibrillator (ICD) was placed approximately 2 years ago due to life-threatening arrhythmias; the device has delivered shocks twice, once about a year ago and once three months ago. The patient describes the shocks as feeling like 'something kicking in your funny bone.' One shock occurred a year ago during an episode of severe shortness of breath and dizziness while working in the yard. There is a history of coronary artery disease with one stent placed in [place] about 2-3 years ago, reported by the patient. Pt reported that he was advised to stop asprin and plavix following ICD placement at [facility]. Diagnosed with Non ischemic Dilated cardiomyopathy. Pt has been followed up by soft work cigar machine operator at [facility], and is an established patient there. Patient denies current chest pain, fever, or peripheral swelling, but notes tightness in shorts and possible upper body swelling prior to admission. No recent episodes of syncope or near-syncope except during the period without medications. Patient describes improvement in breathing and overall well-being since hospitalization and resumption of medications. Echocardiogram 12/22/2024 shows severe dilated cardiomyopathy dilated LV with severe global hypokinesis, EF 10 to 15%, diastolic dysfunction grade 3, severely reduced RV systolic function, moderately elevated RVSP 55 to 55 mm, LA severely dilated, moderate MR, dilated mitral annulus and moderate to severe TR. Trace pericardial effusion with no evidence of tamponade, dilated IVC Acute kidney injury likely cardiorenal syndrome, noted improvement in renal function after IV diuresis, currently on Lasix 40 mg IV twice daily. Good urine output, but patient needs fluid restriction to 1500 cc to achieve net -1.5 L daily. Continue to monitor renal function in the setting of cardiorenal syndrome. Problems: # Acute hypoxic respiratory failure # Acute on chronic systolic heart failure # s/p ICD in 2022 # CAD s/p PCI - pt reported # Dilated versus ischemic cardiomyopathy # HARJIT, likely cardiorenal syndrome?resolving # Methamphetamine abuse # Type 2 diabetes mellitus?A1c 8.6 % # History of hypertension Recommendations: ? Medical records requested from [facility] for recent procedures and soft work cigar machine operator visits. ? Patient has [employer] ICD placed, recommend pacemaker interrogation with dinesh león . ? Strict abstinence from methamphetamine and alcohol. ? Continue IV diuresis, strict intake and output monitoring, continue to monitor for renal function in the setting of cardiorenal syndrome , advised Fluid restriction to 1500 cc ? Recommend introducing guideline directed medical therapy, continue home medication Coreg if blood pressure allows, recommend switching losartan to Entresto . ? Continue spironolactone 25 mg daily , aspirin 81 mg daily and atorvastatin ? Recommend patient to follow-up with soft work cigar machine operator Dr. Higuera on outpatient basis upon discharge. Rest of the management deferred to primary team. Thank you for cardiology consultation. We appreciate the opportunity to participate in this patient's care. Will continue to follow-up on this patient, Recommend patient to follow-up with soft work cigar machine operator Dr. Higuera on outpatient basis upon discharge. This case was discussed with soft work cigar machine operator, Dr. Hernandez. Yue Keita MD PG3 Attending Provider Attestation/Addendum I have personally seen and examined the patient separately on the above date of service and discussed the plan of care with the resident. I reviewed the resident Dr. Yue Keita consultation progress note and agree with the resident findings and plan in the note above and have also edited the documentation to reflect my findings and plan. Ronald Hernandez M.D. Interventional Cardiology
[2024-12-23 20:13] LABS: Hepatitis A Antibody IgM Non Reactive (Non React); Hepatitis B Core Antibody IgM Non Reactive (Non React); Hepatitis B Surface Antigen Non Reactive (Non React); Hepatitis C Antibody Non Reactive (Non React)
[2024-12-23] MEDS: ATORVASTATIN CALCIUM 20 MG TABLET 40 MG PO (21:08)
[2024-12-24] VITALS (20 sets, daily range): BP systolic 125–142; BP diastolic 90–106; PULSE 56–107; RESP 16–100; TEMP 35.9–37.1; O2SAT 92–100; BMI 34.4
[2024-12-24] MEDS: ALBUTEROL/IPRATROPIUM (Duoneb) RT SOL 3 ML NEBU INH ×5 (02:09→18:12)
[2024-12-24] MEDS: FUROSEMIDE INJ 10 MG/ML 4ML VIAL 40 MG IVP ×2 (05:13→17:05)
[2024-12-24 06:02] LABS: Basophils # (Auto) 0.1 Thou/mm3 (0.0-0.2); Basophils % (Auto) 1 % (0-2.5); Eosinophils # (Auto) 0.1 Thou/mm3 (0.0-0.5); Eosinophils % (Auto) 1 % (0-10); Hematocrit 46.3 % (41.0-53.0); Hemoglobin 15.1 g/dL (13.5-16.0); Immature Granulocytes Auto 0.11 Thou/mm3 (0.00-0.00); Lymphocytes # (Auto) 0.8 Thou/mm3 (1.0-4.8); Lymphocytes % (Auto) 6 % (10-50); Mean Corpuscular HGB Conc 32.6 g/dl (31.0-37.0); Mean Corpuscular Hemoglobin 27.8 pg (25.0-35.0); Mean Corpuscular Volume 85 fL (80-100); Monocytes # (Auto) 0.9 Thou/mm3 (0.0-0.8); Monocytes % (Auto) 7 % (0-12); Neutrophils # (Auto) 10.0 Thou/mm3 (1.8-7.7); Neutrophils % (Auto) 84 % (37-80); Nucleated Red Blood Cell # 0.00 Thou/mm3 (0.00-0.00); Nucleated Red Blood Cell % 0 /100 WBC (0); Platelet Count 185 Thou/mm3 (140-440); RDW Standard Deviation 55.6 fL (35.1-43.9); Red Blood Count 5.44 Miln/mm3 (4.50-5.90); White Blood Count 11.8 Thou/mm3 (3.8-10.6)
[2024-12-24 06:32] LABS: Iron 69 mcg/dL (65-175); Percent Iron Saturation 19 % (20-55); Total Iron Binding Capacity 357 mcg/dL (250-425); Unsaturated Iron Binding 288 (225-295)
[2024-12-24 06:44] LABS: Alanine Aminotransferase 25 U/L (10-49); Albumin, Serum 3.6 gm/dL (3.5-5.0); Albumin/Globulin Ratio 1.6 (1.2-2.2); Alkaline Phosphatase 154 U/L (46-116); Anion Gap 12 (7-16); Aspartate Amino Transferase 24 U/L (0-34); BUN/Creatinine Ratio 17 Ratio (12-20); Bilirubin,Total 2.1 mg/dL (0.3-1.2); Blood Urea Nitrogen 24 mg/dL (9-23); Calcium 9.1 mg/dL (8.3-10.6); Calcium (Corrected) 9.4 mg/dL (8.5-10.1); Carbon Dioxide 25.2 mMol/L (20.0-31.0); Chloride 98 mMol/L (98-107); Creatinine (Component) 1.4 mg/dL (0.6-1.3); Estimated Creatinine Clearance 89.2 mL/min (>60); Globulin 2.3 gm/dL (2.3-3.5); Glucose 243 mg/dL (74-106); Magnesium 1.9 mg/dL (1.6-2.6); Osmolality,Calculated 282 (275-295); Phosphorous 3.3 mg/dL (2.4-5.1); Potassium 3.8 mMol/L (3.4-5.1); Sodium 135 mMol/L (136-145); Total Protein 5.9 gm/dL (5.7-8.2); eGFR > 60 See Note
[2024-12-24] MEDS: INSULIN LISPRO (AdmeLOG) 1 UNIT/0.01 ML UNIT SC ×3 (07:24→17:09)
[2024-12-24] MEDS: PANTOPRAZOLE 40 MG TABLET PO (08:27)
[2024-12-24] MEDS: SPIRONOLACTONE 25 MG TABLET PO (08:28)
[2024-12-24] MEDS: POTASSIUM CHLORIDE 10% 20 MEQ/15 ML UDC PO (09:28)
[2024-12-24] MEDS: Magnesium Sulfate 2 GM Ivpb 2 GM/50 ML BAG IV (09:28)
--- NOTE | 2024-12-24 10:11 | PC.SS ---
Follow up note: Cardio consulting. Possible d/c home.
--- NOTE | 2024-12-24 14:02 | ESPR_ITS ---
<Statement entered by Danny Latif MD - 12/25/24 16:17> I attest that I was physically present for the evaluation, physical examination, lab and imaging review of the patient with the residents. I discussed the case with the residents and agree with the findings and plans of care as documented below. Danny Latif MD <Statement entered by Esha Santos MD - 12/25/24 13:07> Pt is seen at bedside, SOB has significantly improved. Pt is saturating on room air. Pt underwent ICD interrogation, is pending report. and final cardio recs. Patient was seen and examined by me personally. I have directly supervised and reviewed documentation by the team resident and agree with its findings. ------- Plan of care was discussed with the attending, Dr. Salomon Santos, PGY-2 Documentation for date of: 12/24/24 Subjective Subjective Interval history: Overnight events: No acute events overnight. Patient was seen and examined at bedside. AM vitals and labs reviewed. Patient states that he is feeling better today. Feels like he could run around the hospital. Patient had a bowel movement this morning. ICD interrogated. Pending report fax, will provide report to cardiology team for further review. Patient clarified that he smoked from when he was 28 years old to about 41 years old, about 1 pack of cigarettes a day. Patient stated prior to this current admission, he was discussion possibility of COPD with his PCP. He was prescribed a steroid for the suspected COPD, but the patient was not feeling well enough to comply with taking the steroid to see if it improved his symptoms or not. Pending cardiology review of ICD interrogation report. Swapped losartan to Entresto and initiated Coreg per cardiology recommendations. Review of systems otherwise negative except for what is mentioned above. Exam Vital Signs Temp Pulse Resp BP Pulse Ox O2 Del Method O2 Flow Rate 98.3 F 84 21 H 137/91 H 95 Room Air 2 12/24/24 12:15 12/24/24 12:15 12/24/24 12:15 12/24/24 12:15 12/24/24 12:15 12/24/24 12:15 12/22/24 18:04 FiO2 45 12/22/24 08:30 Narrative Exam Physical Exam: General: Alert, no acute distress. Skin: Warm, dry, intact. Head: Normocephalic, atraumatic. Eye: Normal conjunctiva, PERRL. Throat: Oral mucosa moist. No obvious lesions in oropharynx. Cardiovascular: Regular rate and rhythm, no murmur, +S1/S2. Respiratory: Respirations unlabored on room air, no crackles, no wheezing. Gastrointestinal: Soft, nontender, non-distended. No guarding or rebound tenderness. Extremities: No edema, no cyanosis, no clubbing. 2+ radial pulse bilaterally, 2+ pedal pulse bilaterally. Neuro: No focal deficits observed. Conversant, moving all extremities. No overt cerebellar signs/incoordination. Psychiatric: Cooperative, appropriate affect. Objective Labs 12/24/24 04:38 12/24/24 04:38 Labs: Laboratory Results - last 24 hr 12/23/24 12/24/24 10:08 04:38 WBC 11.8 H RBC 5.44 Hgb 15.1 Hct 46.3 MCV 85 MCH 27.8 MCHC 32.6 RDW Std Deviation 55.6 H Plt Count 185 Neut % (Auto) 84 H Lymph % (Auto) 6 L [place] % (Auto) 7 Eos % (Auto) 1 Baso % (Auto) 1 Neut # (Auto) 10.0 H Lymph # (Auto) 0.8 L [place] # (Auto) 0.9 H Eos # (Auto) 0.1 Baso # (Auto) 0.1 Immature Gran # (Auto) 0.11 H Absolute Nucleated RBC 0.00 Immature Gran % 1 H Nucleated RBC % 0 Sodium 135 L Potassium 3.8 D Chloride 98 Carbon Dioxide 25.2 Anion Gap 12 BUN 24 H Creatinine 1.4 H Estim Creat Clear Calc 89.2 eGFR > 60 BUN/Creatinine Ratio 17 Glucose 243 H Calculated Osmolality 282 Calcium 9.1 Corrected Calcium 9.4 Phosphorus 3.3 Magnesium 1.9 Iron 69 TIBC 357 Iron Saturation 19 L Unsat Iron Binding 288 Total Bilirubin 2.1 H D AST 24 ALT 25 Alkaline Phosphatase 154 H D Total Protein 5.9 Albumin 3.6 Globulin 2.3 Albumin/Globulin Ratio 1.6 Hepatitis A IgM Ab Non Reactive Hep Bs Antigen Non Reactive Hep B Core IgM Ab Non Reactive Hepatitis C Antibody Non Reactive ABG Interpretation ABG results: 12/22/24 10:26 VBG pH 7.48 VBG pCO2 35 L VBG pO2 106 H VBG Base Excess 3 Quality Measures Quality Measures VTE prophylaxis Assessment & Plan Assessment Current Active Medications: Generic Name Dose Route Start Last Admin Trade Name Frerick PRN Reason Stop Dose Admin Acetaminophen 650 mg 12/23/24 11:19 Acetaminophen 325 Mg Tablet PO 01/21/25 10:13 Q6H PRN Fever >101.5 Albuterol/Ipratropium 3 ml 12/23/24 15:00 12/24/24 11:05 Albuterol/Ipratropium (Duoneb) Rt Jacqueline 3 Ml Nebu INH 01/22/25 14:59 3 ml Q4HRRT GAEL Administration Atorvastatin Calcium 40 mg 12/22/24 21:00 12/23/24 21:08 Atorvastatin Calcium 20 Mg Tablet PO 01/21/25 20:59 40 mg HS GAEL Administration Carvedilol 3.125 mg 12/24/24 17:30 Carvedilol 3.125 Mg Tablet PO 01/23/25 17:29 BIDWM GAEL Dextrose 25 ml 12/22/24 19:25 Dextrose 50%-Water Inj 50 Ml Syringe IV 01/21/25 19:24 Q15MIN PRN BG 50-70 responsive npo pt Dextrose 50 ml 12/22/24 19:25 Dextrose 50%-Water Inj 50 Ml Syringe IV 01/21/25 19:24 Q15MIN PRN BG <50 OR BG <70 & pt unresponsive Furosemide 40 mg 12/22/24 18:00 12/24/24 05:13 Furosemide Inj 10 Mg/Ml 4ml Vial IVP 01/21/25 17:59 40 mg BIDD GAEL Administration Glucagon 1 mg 12/22/24 19:25 Glucagon Inj 1 Mg Vial IM Q15MIN PRN BG <70, and no IV access Heparin Sodium (Porcine) 5,000 unit 12/22/24 21:00 12/24/24 08:28 Heparin Sod Inj 5000 Unit/Ml Vial SC 01/05/25 20:59 Not Given Q12HR GAEL Insulin Human Lispro 0 unit 12/23/24 07:30 12/24/24 11:16 Insulin Lispro (Admelog) 1 Unit/0.01 Ml Unit SC 01/22/25 07:29 2 unit AC GAEL Administration Protocol Ondansetron HCl 4 mg 12/22/24 10:14 Ondansetron Inj 2 Mg/Ml Inj 2 Ml IVP 01/21/25 10:13 Q6H PRN NAUSEA OR VOMITING Protocol Pantoprazole Sodium 40 mg 12/22/24 10:30 12/24/24 08:27 Pantoprazole 40 Mg Tablet PO 01/21/25 10:29 40 mg QDAY GAEL Administration Sacubitril/Valsartan 1 tab 12/23/24 21:00 12/24/24 08:27 Sacubitril 24 Mg/Valsartan 26 Mg Tablet PO 01/22/25 20:59 1 tab BID GAEL Administration Sennosides 1 tab 12/22/24 10:30 12/24/24 08:26 Senna Tablet PO 01/21/25 10:29 1 tab QDAY GAEL Administration Protocol Spironolactone 25 mg 12/22/24 15:30 12/24/24 08:28 Spironolactone 25 Mg Tablet PO 01/21/25 15:29 25 mg QDAY GAEL Administration Plan Mr. Curtis is a 44-year-old male with past medical history significant for hypertension, type 2 diabetes, HFrEF with EF of 20% status post ICD placed in 2022 and Betty substance use disorder presented to the ED complaining of shortness of breath and orthopnea. Pt is admitted to the hospital for CHF exacerbation. #Acute hypoxic respiratory failure 2/ #CHF exacerbation, in the setting of #HFrEF, EF 10-15% s/p ICD #Non ischemic cardiomyopathy in the setting #Methamphetamine use -Patient states he has been having severe shortness of breath which has progressively worsened over the last couple weeks and he was unable to lay flat. -Patient had ICD placed when his EF was around 10 to 15% by injector assembler in [place] and was started on GDMT and EF improved to 20% -EKG was sinus tachycardia with no acute ST or T wave changes -Chest x-ray shows mild CHF and pulmonary vascular congestion -urine tox is positive for methamphetamines, Pt endorses to smoking it and admits to chronic use -Echo done on 08/02/24: Dilated cardiomyopathy with severe global hypokinesis left ventricle ejection fraction 15 to 20%. -BNP 2824 Plan: -Strict Ins and Out's -Fluid restrictions to 1500ml daily -Supplemental O2 as needed -Lasix 40mg IVP BID -Echo ordered, resulted as dilated cardiomypoathy with severely dilated LV and severe global hypokinesis. EF estimated at 10-15%. LA is also severely dilated. Trace pericardial effusion with no evidence of tamponade. -Keep K >4 and Mg > 2 -Iron panel ordered, resulted with only iron saturation low at 19% -Cardiology consulted, appreciate recommendations -Spironolactone 25 mg daily -Coreg 3.125 mg BID, per cardiology recs -Entresto 24mg/26mg 1 tab BID, per cardiology recs -ICD interrogated, pending cardiology review #Suspected COPD Patient has extensive history of smoking 1 pack of cigarettes for several years. Patient discussed that his PCP suspects COPD, and has started the patient on a steroid medication for it, but the patient has not been compliant. It is unclear what stage of COPD this patient has given his concurrent HFrEF. Wheezing was noted during hospitalization, which improved with Duoneb treatment. -Duonebs 3 mL every 4 hours for wheezing, will reassess if patient continues to need -Patient to f/u with outpatient PCP for further management #Elevated troponins likely #NSTEMI, type II Likely secondary to methamphetamine abuse and acute CHF exacerbation Presented with troponin level 0.147 EKG- was sinus tachycardia with no acute ST or T wave changes -Will trend troponins until down trend #Primary Hypertension Patient noted to have a history of hypertension. Patient had blood pressure of 138/102 in ED on arrival. -Spironolactone 25 mg daily -Coreg 3.125 mg BID, per cardiology recs -Entresto 24mg/26mg 1 tab BID, per cardiology recs #CKD stage IIIa #Non Insulin dependent Type 2 Diabetes Patient's baseline creatinine is 1.6, with GFR of 5, Cr on admission is 1.6 and GFR 54 (at his baseline) A1c 7.0 on 08/02/24 Plan: -Avoid nephrotoxic drugs and renally dose medications -Hold home Janumet -Started Sliding scale insulin -hypoglycemia protocol in place -Acu cheks AC -A1c ordered, resulted as 8.6% #Poly Substance use disorder Pt smokes methamphetamine and urine tox is positive -counseled on cessation -Social service referral Health Maintenance Disposition: telemetry for CHF exacerbation DVT Prophylaxis: Heparin 5000 units SC Q12hrs GI Prophylaxis: Pantoprozol-40 IVP Qday Diet: carbohydrate consistent Lines: Peripheral lines Code status: Full Patient plan of care was discussed with attending physician Dr. Latif and senior resident Dr. Santos (PGY-2) Soham Smallwood, PGY1
[2024-12-24] MEDS: guaiFENesin/DM TABLET 1 EACH PO (15:14)
--- NOTE | 2024-12-24 17:59 | ESPR_ITS ---
Documentation for date of: 12/24/24 Subjective Subjective Interval history: Patient is evaluated bedside, currently sitting upright in bed, active and alert, no respiratory distress, currently on room air. Reported improvement in his symptoms since admission. Patient has a [employer] ICD device, device will be interrogated in the afternoon. As patient has reported he received shocks recently, as described in yesterday's documentation. Continues to deny chest pain or pressure or shortness of breath. Continued on IV diuresis, noted improvement in dyspnea and swelling. Exam Vital Signs Temp Pulse Resp BP Pulse Ox O2 Del Method O2 Flow Rate 98.7 F 83 22 H 125/97 H 96 Room Air 2 12/24/24 16:36 12/24/24 17:06 12/24/24 16:36 12/24/24 17:06 12/24/24 16:36 12/24/24 12:15 12/22/24 18:04 FiO2 45 12/22/24 08:30 Narrative Exam General: AOx3, cooperative, seems anxious, walking around the room, saturating well on room air Skin: Intact, no cyanosis or edema on lower extreme noted. 1+ dependent edema HEENT: Atraumatic/normocephalic, ARAVIND, neck supple Heart: RRR, S1 and S2 without clicks or murmurs Lungs: Clear on auscultation bilaterally, no difficulty breathing Abdomen: Soft, nontender. Bowel sounds present . Vascular: Peripheral pulses palpable Neuro: No focal neurological deficits noted. Objective Labs 12/24/24 04:38 12/24/24 04:38 Labs: Laboratory Results - last 24 hr 12/23/24 12/24/24 10:08 04:38 WBC 11.8 H RBC 5.44 Hgb 15.1 Hct 46.3 MCV 85 MCH 27.8 MCHC 32.6 RDW Std Deviation 55.6 H Plt Count 185 Neut % (Auto) 84 H Lymph % (Auto) 6 L [place] % (Auto) 7 Eos % (Auto) 1 Baso % (Auto) 1 Neut # (Auto) 10.0 H Lymph # (Auto) 0.8 L [place] # (Auto) 0.9 H Eos # (Auto) 0.1 Baso # (Auto) 0.1 Immature Gran # (Auto) 0.11 H Absolute Nucleated RBC 0.00 Immature Gran % 1 H Nucleated RBC % 0 Sodium 135 L Potassium 3.8 D Chloride 98 Carbon Dioxide 25.2 Anion Gap 12 BUN 24 H Creatinine 1.4 H Estim Creat Clear Calc 89.2 eGFR > 60 BUN/Creatinine Ratio 17 Glucose 243 H Calculated Osmolality 282 Calcium 9.1 Corrected Calcium 9.4 Phosphorus 3.3 Magnesium 1.9 Iron 69 TIBC 357 Iron Saturation 19 L Unsat Iron Binding 288 Total Bilirubin 2.1 H D AST 24 ALT 25 Alkaline Phosphatase 154 H D Total Protein 5.9 Albumin 3.6 Globulin 2.3 Albumin/Globulin Ratio 1.6 Hepatitis A IgM Ab Non Reactive Hep Bs Antigen Non Reactive Hep B Core IgM Ab Non Reactive Hepatitis C Antibody Non Reactive ABG Interpretation ABG results: 12/22/24 10:26 VBG pH 7.48 VBG pCO2 35 L VBG pO2 106 H VBG Base Excess 3 Quality Measures Quality Measures VTE prophylaxis Assessment & Plan Assessment Current Active Medications: Generic Name Dose Route Start Last Admin Trade Name Freq PRN Reason Stop Dose Admin Acetaminophen 650 mg 12/23/24 11:19 Acetaminophen 325 Mg Tablet PO 01/21/25 10:13 Q6H PRN Fever >101.5 Albuterol/Ipratropium 3 ml 12/23/24 15:00 12/24/24 15:21 Albuterol/Ipratropium (Duoneb) Rt Jacqueline 3 Ml Nebu INH 01/22/25 14:59 3 ml Q4HRRT GAEL Administration Atorvastatin Calcium 40 mg 12/22/24 21:00 12/23/24 21:08 Atorvastatin Calcium 20 Mg Tablet PO 01/21/25 20:59 40 mg HS GAEL Administration Carvedilol 3.125 mg 12/24/24 17:30 12/24/24 17:06 Carvedilol 3.125 Mg Tablet PO 01/23/25 17:29 3.125 mg BIDWM GAEL Administration Dextrose 25 ml 12/22/24 19:25 Dextrose 50%-Water Inj 50 Ml Syringe IV 01/21/25 19:24 Q15MIN PRN BG 50-70 responsive npo pt Dextrose 50 ml 12/22/24 19:25 Dextrose 50%-Water Inj 50 Ml Syringe IV 01/21/25 19:24 Q15MIN PRN BG <50 OR BG <70 & pt unresponsive Furosemide 40 mg 12/22/24 18:00 12/24/24 17:05 Furosemide Inj 10 Mg/Ml 4ml Vial IVP 01/21/25 17:59 40 mg BIDD GAEL Administration Glucagon 1 mg 12/22/24 19:25 Glucagon Inj 1 Mg Vial IM Q15MIN PRN BG <70, and no IV access Heparin Sodium (Porcine) 5,000 unit 12/22/24 21:00 12/24/24 08:28 Heparin Sod Inj 5000 Unit/Ml Vial SC 01/05/25 20:59 Not Given Q12HR GAEL Insulin Human Lispro 0 unit 12/23/24 07:30 12/24/24 17:09 Insulin Lispro (Admelog) 1 Unit/0.01 Ml Unit SC 01/22/25 07:29 2 unit AC GAEL Administration Protocol Ondansetron HCl 4 mg 12/22/24 10:14 Ondansetron Inj 2 Mg/Ml Inj 2 Ml IVP 01/21/25 10:13 Q6H PRN NAUSEA OR VOMITING Protocol Pantoprazole Sodium 40 mg 12/22/24 10:30 12/24/24 08:27 Pantoprazole 40 Mg Tablet PO 01/21/25 10:29 40 mg QDAY GAEL Administration Sacubitril/Valsartan 1 tab 12/23/24 21:00 12/24/24 08:27 Sacubitril 24 Mg/Valsartan 26 Mg Tablet PO 01/22/25 20:59 1 tab BID GAEL Administration Sennosides 1 tab 12/22/24 10:30 12/24/24 08:26 Senna Tablet PO 01/21/25 10:29 1 tab QDAY GAEL Administration Protocol Spironolactone 25 mg 12/22/24 15:30 12/24/24 08:28 Spironolactone 25 Mg Tablet PO 01/21/25 15:29 25 mg QDAY GAEL Administration Plan Patient has a history of CHF, dCMP s/p ICD and CAD s/p stent, history of methamphetamine abuse, history of diabetes mellitus, HTN, the patient presented to the emergency room complaining of severe shortness of breath. Patient reported that he ran out of his medications about 1 week ago, and started having difficulty breathing at rest and on exertion. Patient was unable to lay flat due to shortness of breath. Reported he felt like he is filling up with fluid . Patient denies chest pain or pressure, but endorsed dyspnea on exertion and at rest, there endorses to apnea and paroxysmal nocturnal dyspnea. The patient was previously established with tilt wall supervisor in [place], Dr. Higuera, has been seen at their clinic on [facility], the patient does not have ICD card. Reported noncompliance with cardiology follow-up visits, never followed up with cardiology for pacemaker checks. He was previously seen by Dr. Srinivasan at [facility], also reported having an coronary angiogram and stent placement at hospital in [place] over 2 years ago and implantable cardioverter-defibrillator (ICD) was placed approximately 2 years ago due to life-threatening arrhythmias; the device has delivered shocks twice, once about a year ago and once three months ago. The patient describes the shocks as feeling like 'something kicking in your funny bone.' One shock occurred a year ago during an episode of severe shortness of breath and dizziness while working in the yard. There is a history of coronary artery disease with one stent placed in [place] about 2-3 years ago, reported by the patient. Pt reported that he was advised to stop asprin and plavix following ICD placement at [facility]. Diagnosed with Non ischemic Dilated cardiomyopathy. Pt has been followed up by tilt wall supervisor at [facility], and is an established patient there. Per patient, he did not follow-up with tilt wall supervisor in outpatient clinic but has seen him multiple time and he was admitted in the hospital for other conditions and ER visits. Patient denies current chest pain, fever, or peripheral swelling, but notes tightness in shorts and possible upper body swelling prior to admission. No recent episodes of syncope or near-syncope except during the period without medications. Patient describes improvement in breathing and overall well-being since hospitalization and resumption of medications. Echocardiogram 12/22/2024 shows severe dilated cardiomyopathy dilated LV with severe global hypokinesis, EF 10 to 15%, diastolic dysfunction grade 3, severely reduced RV systolic function, moderately elevated RVSP 55 to 55 mm, LA severely dilated, moderate MR, dilated mitral annulus and moderate to severe TR. Trace pericardial effusion with no evidence of tamponade, dilated IVC. Elevated liver enzymes and transaminases possibly in the setting of hepatic congestion from severe CHF, also echocardiogram shows dilated IVC. Anticipate improvement in liver function following diuresis. Acute kidney injury likely cardiorenal syndrome, noted improvement in renal function after IV diuresis, currently on Lasix 40 mg IV twice daily. Good urine output, but patient needs fluid restriction to 1500 cc to achieve net -1.5 L daily. Continue to monitor renal function in the setting of cardiorenal syndrome. BUN 24, serum creatinine 1.4, slightly worse than yesterday, creatinine 1.3. Urine output 4100 mL, net negative -800, total intake 3295, patient was strictly advised to adhere with 1500 cc fluid restriction, but compliance has been a challenge. Hemoglobin A1c 8.6%, patient would require aggressive risk factor modification, recommend intensifying diabetic treatment for strict glucose control target range of 140-180 during hospital stay. Problems: # Acute hypoxic respiratory failure # Acute on chronic systolic heart failure # s/p ICD in 2022 # CAD s/p PCI - pt reported?unknown tilt wall supervisor in [place] # Dilated versus ischemic cardiomyopathy # HARJIT, likely cardiorenal syndrome?resolving # Methamphetamine abuse # Type 2 diabetes mellitus?A1c 8.6 % # History of hypertension Recommendations: ? Medical records requested from [facility] [place] for recent procedures and tilt wall supervisor visits. ? Patient has [employer] ICD placed, recommend pacemaker interrogation with dinesh león . ? Patient was counseled regarding strict abstinence from methamphetamine and alcohol . ? Continue IV diuresis, strict intake and output monitoring, continue to monitor for renal function in the setting of cardiorenal syndrome, advised Fluid restriction to 1500 cc ? Recommend introducing guideline directed medical therapy, continue home medication Coreg if blood pressure allows, recommend switching losartan to Entresto . ? Continue spironolactone 25 mg daily , aspirin 81 mg daily and atorvastatin ? Recommend patient to follow-up with tilt wall supervisor Dr. Higuera on outpatient basis upon discharge. Rest of the management deferred to primary team. Thank you for cardiology consultation. We appreciate the opportunity to participate in this patient's care. Will continue to follow-up on this patient, Recommend patient to follow-up with tilt wall supervisor Dr. Higuera on outpatient basis upon discharge. This case was discussed with tilt wall supervisor, Dr. Hernandez. Yue Keita MD PG3 Attending Provider Attestation/Addendum I have personally seen and examined the patient separately on the above date of service and discussed the plan of care with the resident. I reviewed the resident Dr. Yue Keita consultation progress note and agree with the resident findings and plan in the note above and have also edited the documentation to reflect my findings and plan. Ronald Hernandez M.D. Interventional Cardiology
[2024-12-24] MEDS: ATORVASTATIN CALCIUM 20 MG TABLET 40 MG PO (20:26)
--- NOTE | 2024-12-24 22:24 | PD.RESEVENT ---
Documentation for date of: 12/24/24 Event Note Event Note: Patient left the hospital AGAINST MEDICAL ADVICE. Prior to leaving, risks of leaving AMA were explained, including worsening heart failure, volume overload, arrhythmia, respiratory failure, rehospitalization, and possible . Patient was alert and oriented, demonstrated capacity, verbalized understanding of these risks, and persistent decision to leave. Patient signed AMA form in the presence of staff. He was advised to follow-up closely with his primary care physician and accessories repairer, and to return to the emergency department immediately if he experiences chest pain, worsening dyspnea, syncope, palpitation, or any other concerning symptoms. ----- Plan discussed with attending physician Dr. Cristopher Rodriguez MD PGY-1 Internal Medicine
--- NOTE | 2024-12-24 22:29 | PC.NURSE ---
pt found in hallway with clothing on and bag packed, A/O x 4. Pt stated I just want to leave I cant be here I need to go home and patient continuously stating he is leaving. Dr vincent notified, dr vincent and juan chowdary came to bedside to explain risks to patient, and offered patient to stay so he can be connected to outpatient resources in the morning, patient still stated he is going home and will call family to pick him up. IV removed, AMA form signed, and pt left AMA.
== END 2024-12-24 22:20 | disposition left against medical advice (07) | DRG 194 ==
LOC: SERX 10:04 → SERHOLD 11:01 → S3NX 12-24 06:28
PROVIDERS: Admitting Provider Student in an Organized Health Care Education/Training Program; Emergency Provider Emergency Medicine; PCP Family Medicine; Visit Provider Student in an Organized Health Care Education/Training Program
DX: I13.0 Hypertensive heart and chronic kidney disease with heart failure and stage 1 through stage 4 chronic kidney disease, or unspecified chronic kidney disease (principal); I50.23 Acute on chronic systolic (congestive) heart failure; J96.01 Acute respiratory failure with hypoxia; E11.22 Type 2 diabetes mellitus with diabetic chronic kidney disease; N18.31 Chronic kidney disease, stage 3a; Z95.810 Presence of automatic (implantable) cardiac defibrillator; Z87.891 Personal history of nicotine dependence; F12.90 Cannabis use, unspecified, uncomplicated; F15.10 Other stimulant abuse, uncomplicated; I42.0 Dilated cardiomyopathy; I21.A1 Myocardial infarction type 2; Z91.199 Patient's noncompliance with other medical treatment and regimen due to unspecified reason; N17.9 Acute kidney failure, unspecified; I25.10 Atherosclerotic heart disease of native coronary artery without angina pectoris; I16.9 Hypertensive crisis, unspecified; Z79.84 Long term (current) use of oral hypoglycemic drugs; Z95.5 Presence of coronary angioplasty implant and graft; Z53.29 Procedure and treatment not carried out because of patient's decision for other reasons; Z79.82 Long term (current) use of aspirin; Z79.899 Other long term (current) drug therapy
CPT/HCPCS: 36415; 71045; 80053; 80074; 80307; 81001; 82803; 83036; 83540; 83550; 83735; 83880; 84100; 84484; 85025; 85610; 85730; 87811; 93005; 93225; 93306; 94640; 94660; 94664; 94762; 96365; 96366; 96375; 96376; 99283; A9270; J0360; J1815; J1938; J3475

== ENCOUNTER 2025-02-17 01:40 | Emergency (ER) | payer MEDICAID, SELFPAY ==
--- NOTE | 2025-02-17 01:45 | EKG_ITS ---
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1980 Requested By: ED Temporary Provider Order Number: [id number] Reading MD: ED Temporary Provider Measurements Intervals [place] Rate: 91 P: 59 UT: 197 QRS: 33 QRSD: 119 T: 40 QT: 354 QTc: 437 Interpretive Statements SINUS RHYTHM POSSIBLE RIGHT ATRIAL ENLARGEMENT [0.25mV P-WAVE] LEFT ATRIAL ENLARGEMENT [-0.15mV P-WAVE IN V1/V2] LOW QRS VOLTAGE IN EXTREMITY LEADS [QRS DEFLECTION < 0.5 mV IN LIMB LEADS] PATTERN CONSISTENT WITH PULMONARY DISEASE POSSIBLE INFERIOR MYOCARDIAL INFARCTION , PROBABLY OLD [30 ms Q WAVE IN II/aVF] Compared to ECG 12/22/2024 08:09:11 Low QRS voltage now present Sinus tachycardia no longer present Myocardial infarct finding still present /[id number]/[id number]
[2025-02-17 01:55] VITALS: BP 139/101; PULSE 96; RESP 22; TEMP 36.9; O2SAT 95
--- NOTE | 2025-02-17 02:02 | XR_ITS ---
EXAMINATION: PA chest single view TECHNIQUE: 1. Upright PA chest single view Date and time: February 17, 2025, 0208 hours, comparison December 22, 2024 INDICATIONS: Difficulty breathing today. FINDINGS: Mild CHF Mild to moderate enlargement cardiac contour. Prominent vascular congestion with perihilar edema. Cardiac leads satisfactory position. Intact osseous structures. IMPRESSION: Mild CHF
--- NOTE | 2025-02-17 02:02 | XR_ITS ---
Examination: CT chest, without intravenous contrast. Sagittal and coronal 2-D reconstructions. Exam date and time: January and 2024, 0220 hours, comparison 12/13/2024 INDICATIONS: Shortness of breath and coughing beginning 10 days ago CTDI:vol (mGy) 15.71 DLP: (mGycm) 645 Technique: Multiple 3.0 mm axial sections of the chest to been obtained. Bone and lung density settings are obtained. Sagittal and coronal 2-D reconstructions have been obtained. Low dose protocols were performed. One or more of the following dose reduction techniques were used; automated exposure control, adjustment of the mA and/or KV according to patient size, use of iterative reconstruction technique. Findings: No thoracic aortic aneurysm dilatation Main pulmonary artery segment 42 mm Moderate enlargement cardiac contour with prominent vascular congestion and early perihilar edema No lobar pneumonia No significant pleural disease Liver is irregular in contour No splenic lesion The osseous structures are intact IMPRESSION: Mild CHF Primary hepatocellular disease versus cirrhosis
--- NOTE | 2025-02-17 02:04 | PD.EDSOB ---
ED SOB =RME/HPI General Chief Complaint: Shortness of Breath/Dyspnea Stated Complaint: DIFF BREATHING Time Seen by Provider: 02/17/25 02:01 Arrival date/time: 02/17/25 01:40 RME / HPI RME / HPI Narrative: See MDM for Dr. Frazier's HPI Documentation. Related Data Home Medications ?Medication ?Instructions ?Recorded ?Confirmed aspirin 81 mg tablet,delayed 81 mg PO QDAY 09/08/21 12/23/24 release carvedilol 12.5 mg tablet 1 tab PO BID 09/08/21 12/23/24 clopidogrel 75 mg tablet 1 tab PO QDAY 09/08/21 12/23/24 losartan 100 mg tablet 1 tab PO QDAY 09/08/21 12/23/24 spironolactone 25 mg tablet 1 tab PO QDAY 09/08/21 12/23/24 atorvastatin 80 mg tablet 1 tab PO HS 09/19/21 12/23/24 furosemide 40 mg tablet 40 mg PO BID 08/02/24 12/23/24 sitagliptin phosphate 50 1 tab PO BIDWM 12/23/24 12/23/24 mg-metformin 1,000 mg tablet (Janumet) Previous Rx's ?Medication ?Instructions ?Recorded lactulose 10 gram/15 mL oral 20 g (30 mL) PO BID PRN 09/14/24 solution (Constulose) constipation #300 mL Allergies Allergy/AdvReac Type Severity Reaction Status Date / Time No Known Allergies Allergy Verified 02/17/25 01:41 Review of Systems Review of Systems Systems Reviewed: All systems reviewed, normal except as documented Past Medical History Past Medical History CARDIAC: Positive Cardiac Disorders, Congestive Heart Failure, Edema and Hypertension RESPIRATORY: Positive Chronic Obstructive Pulmonary Disease (COPD), Asthma and Pneumonia GASTROINTESTINAL: Positive Obesity GENITOURINARY: Positive Genitourinary Disorders, Renal Disease and Kidney Stones MUSCULOSKELETAL: Positive Musculoskeletal Disorders ENDOCRINE: Positive Diabetes Mellitus Type 2 OTHER HISTORY: Positive Hospitalization Family History FAMILY HISTORY: Positive Family Cardiac Disorders Surgical History SURGICAL: Positive Cardiac Surgery and Pacemaker Social History SMOKING STATUS: Former smoker SUBSTANCE USE: methamphetamine ED Exam Narrative Physical exam: See MDM for Dr. Frazier's Physical Exam Documentation. Course Quality Measures none Orders Category Date Time Status Bedside COVID-19 Antigen Test NOW Care 02/17/25 02:02 Completed EKG (ED ONLY) *Do not use* NOW Care 02/17/25 01:[address] chest wo con Stat Exams 02/17/25 02:02 Completed EKG (ED Only) Stat Exams 02/17/25 01:45 Draft XR chest 1V portable Stat Exams 02/17/25 02:02 Completed BNP [B-Type Natriuretic Peptide] Stat Lab 02/17/25 02:09 Completed Bilirubin,Direct Stat Lab 02/17/25 02:09 Completed CBC Stat Lab 02/17/25 02:09 Completed CMP [Comprehensive Metabolic Panel] Stat Lab 02/17/25 02:09 Completed Drug Screen,Urine Stat Lab 02/17/25 03:08 Completed Influenza A & B Rapid Panel Stat Lab 02/17/25 02:07 Completed Magnesium Stat Lab 02/17/25 02:09 Completed TSH [Thyroid Stimulating Hormone] Stat Lab 02/17/25 02:09 Completed Troponin I Stat Lab 02/17/25 02:09 Completed Troponin I Stat Lab 02/17/25 03:18 Completed Vital Signs Vital signs: Vital Signs Temperature 98.5 F 02/17/25 01:55 Pulse Rate 96 02/17/25 01:55 Respiratory Rate 22 H 02/17/25 01:55 Blood Pressure 139/101 H 02/17/25 01:55 Pulse Oximetry (%) 95 02/17/25 01:55 Oxygen Delivery Method Room Air 02/17/25 01:55 Shortness of Breath / Dyspnea MDM Narrative MDM Narrative:: This section includes all my notes and documentations, including HPI, PE, and ED course. Golden Frazier MD HPI: 44 y/o male with Hx of CHF, Asthma, HTN, presents with shortness of breath with non-productive cough x 1 week. Has trouble describing quality and quantity of his symptoms. Has trouble describing exacerbating/relieving factors. Appears under the influence. No other complaints. ROS: All negative except as documented in HPI. Physical Exam: General: Alert and oriented. Appears under the influence. Eyes: Conjunctivae and lids clear. PERRL. EOMI. ENT: No nasal congestion. Pharynx normal. TM normal bilaterally. Neck: Supple. Heart: RRR. Lungs: No respiratory distress. Good air movement. No rhonchi, wheezing, rales. Abdomen: Soft and nontender. Normal bowel sounds. No distension. No rebound or guarding. Back: No CVA tenderness. Legs: No edema. Skin: Warm and dry. Neuro: Alert and oriented X 3. Cranial nerves II to XII grossly normal. No peripheral motor deficits. I reviewed all diagnostic test results: My interpretation of the EKG is: Sinus rhythm (91 bpm) with nonspecific ST-T changes. My interpretation of the chest x-ray is no acute findings. My review of the Chest CT report is no acute findings. Blood tests and urine tests remarkable for troponin 0.351 (repeat 0.361), BNP 2022 (stable from past levels), and positive UDS for methamphetamine. Covid/Influenza: Negative. At this point, diagnoses include: Methamphetamine Intoxication Stable CHF 03:07 - I discussed the case with our Mental Health Program Director, Dr. Barnhart. About the presentation and exam and diagnostics and treatments here, including troponin levels. Recommended outpatient management. Based on my best medical judgment, made decision no further evaluation or treatment indicated at this time. Patient understands and agrees to the discharge instructions customized and printed, see below. Discharge Instructions from Dr. Frazier printed for you: 1. After evaluation (including reviewing your case, including diagnostic test results, with Dr. Barnhart, our value stream leader), your diagnosis is stable CHF. There is no indication for admission or change of your current treatments. 2. Continue all prescriptions prescribed for you. 3. When resting or sitting or sleeping, elevate the head of bed and elevate your feet/ankles above your waist level. This is extremely important to get the extra fluid back into your circulation so you can urinate out the extra fluid. Limit all oral fluid intake to less than 4 cups per 24 hours for 3 days. Then don't go out of your way to drink too much fluid--only when your body tells you to drink.?? 4. And stop methamphetamine at all cost. To prevent severe injuries and illnesses, some fatal. 5. See a private doctor on 02/18/2025 for recheck and further care. Ask to review all test results and official radiology reports, to make sure you receive all necessary follow-ups and monitoring. To make sure there is no serious underlying heart condition, ask to help you get more tests for your heart that cannot be done here in the ER. Such as Holter Monitor (cardiac monitoring at home from a day to even a month), heart stress test (on treadmill or with medication), echocardiogram (imaging of your heart structures), heart catherization (checking for blockages in your heart arteries), and a referral to see a Mental Health Program Director. 6. Seek immediate medical care with worsening or with any concerns. Golden Frazier MD Patient data External records reviewed:: [facility] previous records (Reviewed prior ED records from 12/22/24. Patient was seen for CHF exacerbation.) Clinical information provided by:: patient Social determinants that could affect healthcare access:: substance use (Methamphetamine) Patient has the following chronic illnesses:: Congestive Heart Failure, Edema, Hypertension, Chronic Obstructive Pulmonary Disease (COPD), Asthma, Obesity, Renal Disease, Kidney Stones How is presenting disease/condition affected by chronic disease/condition?: exacerbated by Evaluation data The following diagnostics were reviewed and interpreted by me:: lab results, radiology exam(s) and EKG tracing(s) (My interpretation of the EKG is: Sinus rhythm (91 bpm) with nonspecific ST-T changes. Golden Frazier MD) Lab and/or radiology exams considered but not ordered:: None Interpretation Summary: I reviewed all diagnostic test results: My interpretation of the EKG is: Sinus rhythm (91 bpm) with nonspecific ST-T changes. My interpretation of the chest x-ray is no acute findings. My review of the Chest CT report is no acute findings. Blood tests and urine tests remarkable for troponin 0.351 (repeat 0.361), BNP 2022 (stable from past levels), and positive UDS for methamphetamine. Covid/Influenza: Negative. Medications / Prescriptions Medications or Prescriptions considered but not ordered:: None Medication administrations:: N/A Consultations Consultation(s) initiated? (list below): Yes Consultation #1 (Physician, Specialty, Details): I discussed the case with our Mental Health Program Director, Dr. Barnhart. About the presentation and exam and diagnostics and treatments here, including troponin levels. Recommended outpatient management. Time: 03:07 Diagnosis Shortness of Breath Differential Diagnosis: acute exacerbation of chronic obstructive airways disease, congestive heart failure, community acquired pneumonia, asthma with exacerbation and pulmonary embolism Most likely diagnosis given after review of the tests above:: Methamphetamine Intoxication Stable CHF Admission Indicated Admission indicated?: not indicated Explain why admission is indicated or not indicated:: I discussed the case with our Mental Health Program Director, Dr. Barnhart. About the presentation and exam and diagnostics and treatments here, including troponin levels. Recommended outpatient management. Admission Request Was there a request for admission?: No Disposition Plan Disposition Plan: Discharge Discharge Attestation Discharge Attestation: The patient and all family members were given an opportunity to ask questions and understood the discharge instructions. Discharge instructions specifically effects, indications for sooner follow up or return to the emergency department, and the expected course of current diagnosis. Patient condition: Stable Discharge Plan Plan Patient Disposition: HOME (Self Care) Prescriptions/Referrals Prescriptions/Med Rec: No Action losartan 100 mg tablet 1 tab PO QDAY Patient Comments: TAKE 1 TABLET BY MOUTH ONCE DAILY FOR 30 DAYS carvedilol 12.5 mg tablet 1 tab PO BID Patient Comments: TAKE 1 TABLET BY MOUTH TWICE DAILY WITH FOOD clopidogrel 75 mg tablet 1 tab PO QDAY Patient Comments: TAKE 1 TABLET BY MOUTH ONCE DAILY aspirin 81 mg tablet,delayed release (DR/EC) 81 mg PO QDAY Patient Comments: TAKE 1 TABLET BY MOUTH ONCE DAILY spironolactone 25 mg tablet 1 tab PO QDAY Patient Comments: TAKE 1 TABLET BY MOUTH ONCE DAILY atorvastatin 80 mg tablet 1 tab PO HS Patient Comments: TAKE 1 TABLET BY MOUTH ONCE DAILY Janumet 50-1,000 mg tablet 1 tab PO BIDWM furosemide 40 mg tablet 40 mg PO BID Patient Comments: TAKE 1 TABLET BY MOUTH TWICE DAILY lactulose [Constulose] 10 gram/15 mL solution 20 g PO BID PRN (Reason: constipation) Qty: 300 0RF Referrals: No Primary/Family,Physician [Primary Care Provider] - In 1 week Problem List Clinical Impression: Methamphetamine intoxication, Congestive heart failure Patient/Caregiver Discharge Instructions Discharge Activity: activity as tolerated Education Materials: ED CHF Left Side Additional Instructions: Discharge Instructions from Dr. Frazier printed for you: 1. After evaluation (including reviewing your case, including diagnostic test results, with Dr. Barnhart, our value stream leader), your diagnosis is stable CHF. There is no indication for admission or change of your current treatments. 2. Continue all prescriptions prescribed for you. 3. When resting or sitting or sleeping, elevate the head of bed and elevate your feet/ankles above your waist level. This is extremely important to get the extra fluid back into your circulation so you can urinate out the extra fluid. Limit all oral fluid intake to less than 4 cups per 24 hours for 3 days. Then don't go out of your way to drink too much fluid--only when your body tells you to drink.?? 4. And stop methamphetamine at all cost. To prevent severe injuries and illnesses, some fatal. 5. See a private doctor on 02/18/2025 for recheck and further care. Ask to review all test results and official radiology reports, to make sure you receive all necessary follow-ups and monitoring. To make sure there is no serious underlying heart condition, ask to help you get more tests for your heart that cannot be done here in the ER. Such as Holter Monitor (cardiac monitoring at home from a day to even a month), heart stress test (on treadmill or with medication), echocardiogram (imaging of your heart structures), heart catherization (checking for blockages in your heart arteries), and a referral to see a Mental Health Program Director. 6. Seek immediate medical care with worsening or with any concerns. Print Language: Bulgarian Stand Alone Forms: [employer] Info., Patient Portal Info Letter
[2025-02-17 02:28] LABS: Basophils # (Auto) 0.1 Thou/mm3 (0.0-0.2); Basophils % (Auto) 1 % (0-2.5); Eosinophils # (Auto) 0.1 Thou/mm3 (0.0-0.5); Eosinophils % (Auto) 2 % (0-10); Hematocrit 48.4 % (41.0-53.0); Hemoglobin 15.6 g/dL (13.5-16.0); Immature Granulocytes Auto 0.05 Thou/mm3 (0.00-0.00); Lymphocytes # (Auto) 1.6 Thou/mm3 (1.0-4.8); Lymphocytes % (Auto) 18 % (10-50); Mean Corpuscular HGB Conc 32.2 g/dl (31.0-37.0); Mean Corpuscular Hemoglobin 28.1 pg (25.0-35.0); Mean Corpuscular Volume 87 fL (80-100); Monocytes # (Auto) 0.9 Thou/mm3 (0.0-0.8); Monocytes % (Auto) 10 % (0-12); Neutrophils # (Auto) 6.3 Thou/mm3 (1.8-7.7); Neutrophils % (Auto) 69 % (37-80); Nucleated Red Blood Cell # 0.00 Thou/mm3 (0.00-0.00); Nucleated Red Blood Cell % 0 /100 WBC (0); Platelet Count 230 Thou/mm3 (140-440); RDW Standard Deviation 50.9 fL (35.1-43.9); Red Blood Count 5.55 Miln/mm3 (4.50-5.90); White Blood Count 9.1 Thou/mm3 (3.8-10.6)
[2025-02-17 02:47] LABS: Alanine Aminotransferase 19 U/L (10-49); Albumin, Serum 4.0 gm/dL (3.5-5.0); Albumin/Globulin Ratio 1.6 (1.2-2.2); Alkaline Phosphatase 158 U/L (46-116); Anion Gap 9 (7-16); Aspartate Amino Transferase 31 U/L (0-34); B-Type Natriuretic Peptide 2023 pg/mL (0-100); BUN/Creatinine Ratio 15 Ratio (12-20); Bilirubin,Direct 0.6 mg/dL (0.0-0.3); Bilirubin,Total 1.4 mg/dL (0.3-1.2); Blood Urea Nitrogen 21 mg/dL (9-23); Calcium 9.5 mg/dL (8.3-10.6); Calcium (Corrected) 9.5 mg/dL (8.5-10.1); Carbon Dioxide 30.9 mMol/L (20.0-31.0); Chloride 98 mMol/L (98-107); Creatinine (Component) 1.4 mg/dL (0.6-1.3); Globulin 2.5 gm/dL (2.3-3.5); Glucose 275 mg/dL (74-106); Magnesium 1.9 mg/dL (1.6-2.6); Osmolality,Calculated 288 (275-295); Potassium 4.5 mMol/L (3.4-5.1); Sodium 138 mMol/L (136-145); Thyroid Stimulating Hormone 5.32 uIU/mL (0.55-4.78); Total Protein 6.5 gm/dL (5.7-8.2); eGFR > 60 See Note
[2025-02-17 02:49] LABS: Troponin I 0.351 ng/mL (0.0-0.045)
[2025-02-17 03:05] LABS: Influenza A Ag Negative; Influenza B Ag Negative
--- NOTE | 2025-02-17 03:06 | PRELIM_ITS ---
CT scan of the chest without intravenous contrast (axial sections with sagittal and coronal reformats) February 17, 2025 0220 hours Clinical History: SOB Comparison: No prior study is available for comparison. Findings: The evaluation is slightly limited by respiratory motion. There is mild interlobular septal thickening in both lungs, greater in the upper lobes. There is heterogeneous attenuation of both lungs which may indicate small airway or small vessel disease. There is minimal subsegmental atelectasis in the lungs. No evidence of pleural effusion or pneumothorax. There are non-specific small and prominent mediastinal lymph nodes. The thoracic aorta is unremarkable. There is moderate cardiomegaly. There is small pericardial effusion. Coronary artery calcification is noted. A cardiac pacemaker is identified in the left chest wall with its lead tips in the right a trium and ventricle respectively. A small hiatal hernia is present. There is possible cirrhosis of the liver. Mild degenerative changes are identified in the spine. Schmorl's nodes are noted at multiple levels. The visualized upper abdominal viscera are unremarkable on this noncontrast study. Impression: 1. Moderate cardiomegaly with small pericardial effusion and mild interstitial edema.Recommend clinical correlation. 2. Heterogeneous attenuation of both lungs, of unclear etiology. Recommend clinical correlation and follow-up. 3. Possible cirrhosis. 4. Other findings as described above. Report Electronically Signed By: Nico Poe 02/17/2025 3:06:24 AM [EST]
[2025-02-17 03:28] LABS: Amphetamine/Methamp Scrn,U Positive (Negative); Barbiturate Screen,Urine Negative (Negative); Benzodiazepines Screen,Urine Negative (Negative); Benzoylecgonine Screen, Ur Negative (Negative); Fentanyl Screen,Urine Negative (Negative); Opiate Screen,Urine Negative (Negative); THC Screen,Urine Positive (Negative)
[2025-02-17 03:44] LABS: Troponin I 0.361 ng/mL (0.0-0.045)
[2025-02-17 04:11] VITALS: RESP 20
== END 2025-02-17 04:11 | disposition home or self-care (01) ==
PROVIDERS: Emergency Provider Emergency Medicine
DX: I11.0 Hypertensive heart disease with heart failure (principal); F15.129 Other stimulant abuse with intoxication, unspecified; I50.9 Heart failure, unspecified; J45.909 Unspecified asthma, uncomplicated; Z95.0 Presence of cardiac pacemaker
CPT/HCPCS: 36415; 71045; 71250; 80053; 80307; 82248; 83735; 83880; 84443; 84484; 85025; 87502; 87811; 93005; 99283

== ENCOUNTER 2025-02-25 02:39 | Emergency (ER) | payer MEDICAID, SELFPAY ==
[2025-02-25 02:41] VITALS: PULSE 92; RESP 18; O2SAT 96
[2025-02-25 02:43] VITALS: BMI 33.2
[2025-02-25 02:48] VITALS: BP 136/76; PULSE 100; RESP 20; TEMP 36.4; O2SAT 100
--- NOTE | 2025-02-25 02:50 | EKG_ITS ---
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: : [id number] Requested By: Quentin Potts Order Number: [id number] Reading MD: Quentin Potts Measurements Intervals [place] Rate: 105 P: 72 WV: 168 QRS: 108 QRSD: 104 T: -18 QT: 330 QTc: 437 Interpretive Statements SINUS TACHYCARDIA RIGHT ATRIAL ENLARGEMENT [0.3mV P-WAVE] POSSIBLE LEFT ATRIAL ENLARGEMENT [-0.1mV P-WAVE IN V1/V2] POSSIBLE RIGHT VENTRICULAR HYPERTROPHY [SOME/ALL OF: PROMINENT R IN V1, LATE TRANSITION, RAD, MAGALY, SSS] POSSIBLE ANTERIOR MYOCARDIAL INFARCTION , PROBABLY OLD [30 ms Q WAVE IN V3/V4, OR R < 0.2 mV IN V4] MODERATE T-WAVE ABNORMALITY, CONSIDER LATERAL ISCHEMIA [-0.1+ mV T-WAVE IN I/aVL/V5/V6] Compared to ECG 02/17/2025 01:58:14 T-wave abnormality now present Possible ischemia now present Sinus rhythm no longer present Myocardial infarct finding still present /store/S0/[id number]/[id number].pdf
--- NOTE | 2025-02-25 02:50 | XR_ITS ---
EXAMINATION: PA chest single view TECHNIQUE: Upright PA chest single view Date and time: February 25, 2025, 0252 hours, comparison February 17, 2025 INDICATIONS: Shortness of breath chest pain today. FINDINGS: Mild to moderate CHF. Moderate enlargement cardiac contour, prominent vascular congestion and perihilar edema. Cardiac leads stable position IMPRESSION: Mild to moderate CHF
--- NOTE | 2025-02-25 02:51 | PD.EDRME ---
Rapid Medical Screening Exam RME Arrival date/time: 02/25/25 02:39 This is a case of 44-year-old male with history of CHF and pacemaker came in in the emergency room due to shortness of breath and chest pain patient have O2 3 L nasal cannula worsening of the symptoms this patient decided to start consulted in the emergency room Chief Complaint: Shortness of Breath/Dyspnea Time Seen by Provider: 02/25/25 02:50 Vital signs: Vital Signs Temperature 97.5 F 02/25/25 02:48 Pulse Rate 100 02/25/25 02:48 Respiratory Rate 20 02/25/25 02:48 Blood Pressure 136/76 H 02/25/25 02:48 Pulse Oximetry (%) 100 02/25/25 02:48 Oxygen Delivery Method Nasal Cannula 02/25/25 02:48 Oxygen Flow Rate 2 02/25/25 02:48 Exam: Patient is in distress lungs sound diminished in RRR Clinical Impression: SOB CHF
[2025-02-25 03:17] LABS: Basophils # (Auto) 0.1 Thou/mm3 (0.0-0.2); Basophils % (Auto) 1 % (0-2.5); Eosinophils # (Auto) 0.1 Thou/mm3 (0.0-0.5); Eosinophils % (Auto) 1 % (0-10); Hematocrit 49.9 % (41.0-53.0); Hemoglobin 16.5 g/dL (13.5-16.0); Immature Granulocytes Auto 0.08 Thou/mm3 (0.00-0.00); Lymphocytes # (Auto) 1.7 Thou/mm3 (1.0-4.8); Lymphocytes % (Auto) 16 % (10-50); Mean Corpuscular HGB Conc 33.1 g/dl (31.0-37.0); Mean Corpuscular Hemoglobin 28.9 pg (25.0-35.0); Mean Corpuscular Volume 88 fL (80-100); Monocytes # (Auto) 0.9 Thou/mm3 (0.0-0.8); Monocytes % (Auto) 8 % (0-12); Neutrophils # (Auto) 7.8 Thou/mm3 (1.8-7.7); Neutrophils % (Auto) 73 % (37-80); Nucleated Red Blood Cell # 0.02 Thou/mm3 (0.00-0.00); Nucleated Red Blood Cell % 0 /100 WBC (0); Platelet Count 218 Thou/mm3 (140-440); RDW Standard Deviation 50.4 fL (35.1-43.9); Red Blood Count 5.70 Miln/mm3 (4.50-5.90); White Blood Count 10.7 Thou/mm3 (3.8-10.6)
[2025-02-25 03:46] LABS: Alanine Aminotransferase 24 U/L (10-49); Albumin, Serum 4.1 gm/dL (3.5-5.0); Albumin/Globulin Ratio 1.6 (1.2-2.2); Alkaline Phosphatase 180 U/L (46-116); Anion Gap 9 (7-16); Aspartate Amino Transferase 29 U/L (0-34); B-Type Natriuretic Peptide 1825 pg/mL (0-100); BUN/Creatinine Ratio 18 Ratio (12-20); Bilirubin,Total 1.7 mg/dL (0.3-1.2); Blood Urea Nitrogen 29 mg/dL (9-23); Calcium 9.5 mg/dL (8.3-10.6); Calcium (Corrected) 9.5 mg/dL (8.5-10.1); Carbon Dioxide 30.6 mMol/L (20.0-31.0); Chloride 98 mMol/L (98-107); Creatinine (Component) 1.6 mg/dL (0.6-1.3); Estimated Creatinine Clearance 76.6 mL/min (>60); Globulin 2.5 gm/dL (2.3-3.5); Glucose 253 mg/dL (74-106); Osmolality,Calculated 290 (275-295); Potassium 4.3 mMol/L (3.4-5.1); Sodium 138 mMol/L (136-145); Total Protein 6.6 gm/dL (5.7-8.2); eGFR 54 See Note
[2025-02-25 04:09] LABS: Troponin I 2.217 ng/mL (0.0-0.045)
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
== END 2025-02-25 04:27 | disposition left against medical advice (07) ==
LOC: SERX 03:04
PROVIDERS: Nurse Practitioner Family; Emergency Provider Emergency Medicine; PCP Family Medicine
DX: Z53.21 Procedure and treatment not carried out due to patient leaving prior to being seen by health care provider (principal)
CPT/HCPCS: 36415; 71045; 80053; 81001; 83880; 84484; 85025; 93005; 99283